=== PATIENT | female | born 1945 | race Caucasian/White ===

== ENCOUNTER → 2016-08-05 | Day surgery (SDC) | payer OTHER, MEDICARE ==
[2016-08-04 15:51] VITALS: BP 103/64
[~2016-08-05] VITALS: Ht 167.6 cm; Wt 106.1 kg
[2016-08-05] VITALS (13 sets, daily range): BP systolic 110–133; BP diastolic 61–85
[~2016-08-05] MED LIST: CHOL20003 PO; CYAN500T PO; DIPRIVAN IV ONE; HYDR-3101 PO; HYDR12.53 PO; KENALOG-40 ONE; LACTATED RINGERS 1,000 ML IV SCH; LISI-414 PO; NORCO 7.5MG PO ONE; NORCO 7.5MG PO STA; SENSORCAINE-EPI 0.25%-0.0005 ONE; SODIUM CHLORIDE IR ONE; SUBLIMAZE ONE; THYR65TA PO; TIZA2TAB PO; TORADOL ONE; VERSED ONE; XYLOCAINE ONE; ZOFRAN IV STA; ZOFRAN ONE
--- NOTE | 2016-08-05 18:50 | OPH ---
DATE OF SURGERY: 08/05/2016 PREOPERATIVE DIAGNOSES: 1. Medial and lateral meniscal tear about the right knee. 2. OA of the lateral compartment. POSTOPERATIVE DIAGNOSES: 1. Lateral meniscal tear, right knee. 2. Synovitis, right knee. 3. OA right knee. 4. Skin lesion of the left thigh. OPERATIVE PROCEDURES: 1. Arthroscopy of the right knee with partial lateral meniscectomy. 2. Major synovectomy. 3. Excision of skin lesion, left thigh. SURGEON: Porfirio Samuel MD ANESTHESIA: LMA. TOURNIQUET TIME: In the right thigh is 31 minutes at 300 mmHg. DRAINS: None. BLOOD LOSS: 20 mL. DESCRIPTION OF INDICATIONS: This patient is a 70-year-old female. She has had right knee pain mainly laterally for several months. She complains of pain with weightbearing. She does not remember specific injury. She got temporary relief with cortisone injection. She has tried physical therapy as well as [place] for the pain with no relief. The patient has pain with just walking short distances. She wanted to be more active. She lacks 10 degrees of full extension and has 110 degrees of flexion. There is some medial and lateral tenderness about the joint lines. The Reji is negative. Her x-rays were negative for any narrowing or arthritic changes. The MRI scan shows medial as well as lateral meniscal tears and some OA of the lateral compartment. Because of failure of conservative treatment and the patient's degree of pain, she was taken to the operating room today for the above procedures. DESCRIPTION OF PROCEDURE: The patient was placed on the operating table in the supine position. A general LMA anesthetic was induced without difficulty. The patient had the right thigh padded and a tourniquet was applied. The right lower extremity was then sterilely prepped and draped. The patient had the arthroscopy portals made superolateral, anterolateral and anteromedial. The arthroscope was introduced into the suprapatellar pouch. She had significant synovitis. Later in the case, the patient had a major synovectomy performed of the suprapatellar pouch as well as the medial and lateral compartments. The patient had grade 3-4 chondromalacia about the patellofemoral joint with exposed subchondral bone about the patella as well as the femoral sulcus diffusely. The patient's medial and lateral gutters showed that she had small osteophytes about the distal femur both medially and laterally. The patient's medial compartment was entered. She had some grade 3-4 chondromalacia about the distal end of her medial femoral condyle. Any loose articular cartilage was shaved with a shaver. The medial meniscus was probed throughout its entirety and visualized and found to be normal. The intercondylar notch was viewed and the anterior and posterior cruciate ligaments were normal. The leg was placed in a [id number] position. She had a complex tear of the middle and anterior horns of her lateral meniscus. Using the shaver as well as an upbiter and [place], a partial lateral meniscectomy was performed. There was fairly good maintenance of the articular cartilage about the lateral femoral condyle; however, she had some exposed subchondral bone about the posterior aspect of the lateral tibial plateau. The patient then had the arthroscopic equipment removed from the knee. The portal tracts were closed with 3-0 Ethilon. A compressive dressing was applied. The skin lesion about the anterior aspect of left thigh was sterilely prepped and draped. The skin and subcutaneous tissue was injected with 0.25% ropivacaine with epinephrine. The patient then had the lesion which was about 5 x 5 mm excised off of the anterior medial portion of her left thigh. The wounds were irrigated and closed with 3-0 Ethilon. The patient was extubated in the operating room, sent to recovery in stable condition. Porfirio Samuel MD DR: LYDIA/capo JOB# [id number]
== END | disposition home or self-care (01) ==
LOC: SDC 02:02
PROVIDERS: ATTEND Orthopaedic Surgery
DX: S83.281A Other tear of lateral meniscus, current injury, right knee, initial encounter (principal); X58.XXXA Exposure to other specified factors, initial encounter; Y93.89 Activity, other specified; Y99.8 Other external cause status; Y92.89 Other specified places as the place of occurrence of the external cause; M65.861 Other synovitis and tenosynovitis, right lower leg; L98.8 Other specified disorders of the skin and subcutaneous tissue; M17.11 Unilateral primary osteoarthritis, right knee; M22.41 Chondromalacia patellae, right knee
CPT/HCPCS: 11400; 29876; 29881; 93005; J1885; J2250; J2405; J3010; J3301; J3490; J7030 ×2

== ENCOUNTER → 2016-09-01 | Outpatient (CLI) | payer OTHER, MEDICARE ==
[~2016-09-01] MED LIST changes: -DIPRIVAN IV ONE; -KENALOG-40 ONE; -LACTATED RINGERS 1,000 ML IV SCH; -NORCO 7.5MG PO ONE; -NORCO 7.5MG PO STA; -SENSORCAINE-EPI 0.25%-0.0005 ONE; -SODIUM CHLORIDE IR ONE; -SUBLIMAZE ONE; -TORADOL ONE; -VERSED ONE; -XYLOCAINE ONE; -ZOFRAN IV STA; -ZOFRAN ONE
[2016-09-02 10:19] LABS: HEMATOCRIT 37.5 % (36.0-46.0); HEMOGLOBIN 12.5 g/dL (12.0-15.0); MEAN CELL HGB 30.6 pg (26-34); MEAN CELL HGB CONCENTRATION 33.3 g/dL (33-37); MEAN CORP VOLUME 91.7 fL (78-100); MEAN PLATELET VOLUME 9.5 fL (7.8-11.0); RED CELL DISTRIBUTION WIDTH 14.1 % (11.5-14.5); WHITE BLOOD CELL 6.8 10^3/uL (4.5-11.0)
== END | disposition home or self-care (01) ==
LOC: LAB 16:50 → SUATTDRO 18:26
PROVIDERS: ATTEND Pediatrics
DX: M25.561 Pain in right knee (principal)
CPT/HCPCS: 36415; 85027; 85651; 86140; 87070

== ENCOUNTER → 2016-09-02 | Outpatient (CLI) | payer OTHER, MEDICARE ==
--- NOTE | 2016-09-02 10:17 | DIREP ---
PROCEDURE:US DUPLEX EXTREM VEINS UNILATER/LIMITED-RT COMPARISON:None. INDICATIONS:RT LEG PAIN DVT TECHNIQUE:The right lower extremity was evaluated utilizing pruett scale images with segmental compression, color Doppler, and spectral Doppler with respiratory variation and augmentation. FINDINGS: Common femoral vein:Patent Superficial femoral vein:Patent Popliteal vein:Patent Anterior tibial vein:Patent Posterior tibial vein:Patent Greater saphenous vein:Patent. Reflux is noted in the greater saphenous vein. Waveforms are within normal limits. There is a complex localized fluid collection or cystic lesion in the popliteal fossa measuring 6.5 cm x1.4 cm x3.0 cm most consistent with a popliteal cyst. CONCLUSION: 1. There are no findings of deep venous thrombosis in the right lower extremity. 2. There are findings consistent with a Staton's cyst in the right popliteal space measuring 6.5 cm in diameter. Dictated by: Julio Cesar Welsh M.D. On 09/02/2016 at 10:14 AM
== END | disposition home or self-care (01) ==
LOC: RAD 09:24
PROVIDERS: ATTEND Orthopaedic Surgery
DX: M79.604 Pain in right leg (principal); R60.0 Localized edema
CPT/HCPCS: 93971

== ENCOUNTER → 2016-10-03 | Outpatient (CLI) | payer OTHER, MEDICARE | END | disposition home or self-care (01) | LOC: CT 08:42 | PROVIDERS: ATTEND Orthopaedic Surgery | DX: M17.11 Unilateral primary osteoarthritis, right knee (principal) | CPT/HCPCS: 73700 ==

== ENCOUNTER 2016-10-28 10:00 | Inpatient (IN) | payer OTHER, MEDICARE ==
[~2016-10-28] VITALS: Ht 167.6 cm; Wt 113.0 kg
[2016-10-28 10:37] VITALS: BP 144/68
[2016-10-28 11:09] LABS: BASOPHIL # 0.1 10^3/uL (0.0-0.1); BASOPHIL % 0.6 % (0.0-0.2); EOSINOPHIL # 0.2 10^3/uL (0.0-0.2); EOSINOPHIL % 1.9 % (0.0-5.0); HEMATOCRIT 37.7 % (36.0-46.0); HEMOGLOBIN 12.8 g/dL (12.0-15.0); LYMPHOCYTES # 2.8 10^3/uL (1.0-4.8); LYMPHOCYTES % 35.6 % (24.0-44.0); MEAN CELL HGB 30.7 pg (26-34); MEAN CORP VOLUME 90.4 fL (78-100); MEAN PLATELET VOLUME 9.2 fL (7.8-11.0); MONOCYTES # 0.6 10^3/uL (0.3-0.8); MONOCYTES % 7.4 % (5.0-12.0); NEUTROPHIL # 4.2 10^3/uL (1.8-7.7); NEUTROPHILS % 54.5 % (41.0-85.0); RED CELL DISTRIBUTION WIDTH 13.2 % (11.5-14.5); WHITE BLOOD CELL 7.8 10^3/uL (4.5-11.0)
[2016-10-28 11:44] LABS: CALCIUM 9.7 mg/dL (8.4-10.5); CARBON DIOXIDE 28.6 mmol/L (20.0-32)
--- NOTE | 2016-10-28 12:10 | DIREP ---
PROCEDURE:CHEST 2 VIEWS COMPARISON:None. INDICATIONS:PRE-OP OA RIGHT KNEE FINDINGS: LUNGS/PLEURA:No acute pulmonary parenchymal abnormalities. Minimal scarring in the left lung base. No effusions. VASCULATURE:Normal. Unremarkable pulmonary vasculature. CARDIAC:Normal. No cardiac silhouette abnormality or cardiomegaly. MEDIASTINUM:Normal. No visible mass or adenopathy. BONES:Moderate degenerative changes in the thoracic spine. Mild pectus excavatum. OTHER:Negative. CONCLUSION:Degenerative changes in the thoracic spine and mild pectus excavatum with no acute cardiopulmonary disease.. Dictated by: Fernando Gooden M.D. on 10/28/2016 at 12:08 PM
[2016-10-28] MEDS ORDERED: NAPR500T3 PO (13:35)
[2016-10-28] MEDS ORDERED: GABA300C10 PO (13:35)
[2016-10-28] MEDS ORDERED: CYAN10005 PO (13:35)
[2016-10-31] VITALS (14 sets, daily range): BP systolic 109–163; BP diastolic 61–92
[2016-10-31] MEDS ORDERED: VANCOMYCIN HCL 2 GM ONE (05:04)
[2016-10-31] MEDS ORDERED: NS 500ML 500 ML IV ONE (05:05)
[2016-10-31] MEDS ORDERED: BACTROBAN NASAL NS ONE (06:00)
[2016-10-31] MEDS ORDERED: LACTATED RINGERS 1,000 ML IV SCH ×3 (06:00→11:00)
[2016-10-31] MEDS ORDERED: NS IV ONE ×2 (06:00→07:58)
[2016-10-31] MEDS ORDERED: ANCEF 3 GM in NS 100ML 100 ML IV ONE (06:00)
[2016-10-31] MEDS ORDERED: VANCOMYCIN IV ONE ×2 (06:00→07:58)
[2016-10-31] MEDS ORDERED: CELEBREX PO ONE (06:30)
[2016-10-31] MEDS ORDERED: LYRICA PO ONE (06:30)
[2016-10-31] MEDS ORDERED: TYLENOL PO ONE (06:30)
[2016-10-31] MEDS ORDERED: ZEMURON IV ONE (07:06)
[2016-10-31] MEDS ORDERED: DECADRON ONE (07:06)
[2016-10-31] MEDS ORDERED: XYLOCAINE ONE ×2 (07:06→07:26)
[2016-10-31] MEDS ORDERED: ZOFRAN ONE (07:06)
[2016-10-31] MEDS ORDERED: QUELICIN ONE (07:07)
[2016-10-31] MEDS ORDERED: NEOSTIGMINE ONE (07:07)
[2016-10-31] MEDS ORDERED: DILAUDID ONE (07:07)
[2016-10-31] MEDS ORDERED: VERSED ONE (07:08)
[2016-10-31] MEDS ORDERED: SUBLIMAZE ONE (07:08)
[2016-10-31] MEDS ORDERED: DIPRIVAN IV ONE (07:08)
[2016-10-31] MEDS ORDERED: NAROPIN 5% 5 MG/ML VIAL ONE (07:09)
[2016-10-31] MEDS ORDERED: SODIUM CHLORIDE IR ONE ×2 (07:50)
[2016-10-31] MEDS ORDERED: NS 100ML 200 ML IV ONE (07:50)
[2016-10-31] MEDS ORDERED: NS 250ML 250 ML IV ONE (07:50)
[2016-10-31] MEDS ORDERED: TRANEXAMIC ACID IV ONE (08:07)
--- NOTE | 2016-10-31 08:19 | PCM.HP ---
History of Present Illness Reason for Visit: Right knee pain History of Present Illness 70 yo female with OA about the right knee, she had arthroscopy 4 months ago that did not resolve her pain. She has failed conservative measures in the past. She had an MRI on 08/30 in [facility] that revealed moderate effusion, popliteal cyst adn diffuse OA that is worse laterally. Past Medical History Cardiac: HTN Pulmonary: Other (sleep apnea) PLUSH BRUSHER: Migraine Hx Last Menstrual Period: HX HYSTERECTOMY Past Surgical History: Arthroscopy, Cholecystectomy, Tubal Ligation, Other ( back surgery, Right knee scope, hyst) Past Social History Smoke: No Alcohol: none Travel Hx EBOLA RISK:Travel to/contact w: No Is pt experiencing any Ebola s: No Review of Systems Allergies: Coded Allergies: No Known Allergies (Unverified , 08/04/16) Scheduled Cholecalciferol (Vitamin D3) (Vitamin D-3), 5,000 UNIT PO DAILY, (Reported) Cyanocobalamin (Vitamin B-12) (Vitamin B-12), 1 TAB PO DAILY, (Reported) Gabapentin (Gabapentin), 1 CAP PO BID, (Reported) Hydrochlorothiazide (Hydrochlorothiazide), 1 CAP PO DAILY, (Reported) Lisinopril (Lisinopril), 1 TAB PO DAILY, (Reported) Naproxen (Naproxen), 1 TAB PO BID, (Reported) Thyroid,Pork (Nature-Throid), 65 MG PO DAILY, (Reported) Scheduled PRN Hydrocodone Bit/Acetaminophen (Quentin 7.5-325), 1 TAB PO Q6 PRN for PAIN, ( Reported) Tizanidine Hcl (Tizanidine Hcl), 2 MG PO TID PRN for MUSCLE SPASM, (Reported) Discontinued Medications Cyanocobalamin (Vitamin B-12) (Vitamin B-12), 500 MCG PO DAILY, (Reported) Discontinued Reason: No Longer Taking VTE VTE Risk Total Score: >5 VTE Risk Score VTE Risk: Score 0-1 = Low Risk (Aggressive mobilization; early ambulation; no VTE prophylaxis required) Score 2: Moderate Risk (Intermittent/Pneumatic Compression Device OR Lovenox/Heparin/Coumadin) Score 3-4: High Risk (Intermittent/Pneumatic Compression Device AND Lovenox/Heparin/Coumadin) Score > or =5: Highest Risk (Intermittent/Pneumatic Compression Device AND Lovenox/Heparin/Coumadin) VTE VTE Present on Admission: No Currently receiving anticoagul: No VTE Risk Total Score: >5 Exam Vital Signs Vital Signs Date Time Temp Pulse Resp B/P (MAP) Pulse Ox O2 Delivery O2 Flow Rate FiO2 10/31/16 07:40 63 18 132/77 (95) 99 Nasal Canula 10/31/16 06:04 98.7 General Appearance: Alert, Oriented X3, Cooperative HEENT: Atraumatic, PERRLA Respiratory: Clear to auscultation Cardiovascular: Regular rate Abdominal: Normal bowel sounds Extremities: Other (mild swelling, lacking 10 degrees full extension, 90 degrees flexion, good stability, mild crepitus) Skin: No rash Neuro: Sensation intact Psych/Mental Status: Mental status NL Assessment/Plan Assessment/Plan Assessment/Plan OA right knee Problems: (1) Sleep apnea ICD Code: G47.30 - Sleep apnea, unspecified SNOMED: 78929272 (2) Migraine ICD Code: G43.909 - Migraine, unspecified, not intractable, without status migrainosus SNOMED: 46615835 (3) Osteoarthritis of right knee ICD Code: M17.11 - Unilateral primary osteoarthritis, right knee SNOMED: 386478702838429 (4) HTN (hypertension) ICD Code: I10 - Essential (primary) hypertension SNOMED: 02226621 Patient History: Asthma 32 MOTHER, , Age:78 Cerebrovascular disorder Chronic obstructive pulmonary disease 32 MOTHER, , Age:78 Congestive heart failure 33 FATHER, , Age:75 Diabetes mellitus 32 MOTHER, , Age:78 FH: heart attack 33 FATHER, , Age:75 FH: heart disease 33 FATHER, , Age:75 Hypertension 33 FATHER, , Age:75 No known health problems 19 CHILD 19 CHILD 19 CHILD 19 CHILD Plan Right TKA JAX DAVIS NP Oct 31, 2016 08:18
[2016-10-31] MEDS ORDERED: TORADOL IV SCH (08:30)
[2016-10-31] MEDS ORDERED: CEPACOL SORE THROAT LOZENGE MM PRN (08:30)
[2016-10-31] MEDS ORDERED: AMBIEN PO PRN (08:30)
[2016-10-31] MEDS ORDERED: NORCO 5 MG PO PRN ×2 (08:30)
[2016-10-31] MEDS: PEPCID PO SCH (09:00)
[2016-10-31] MEDS ORDERED: VANCOMYCIN HCL IV SCH (09:00)
[2016-10-31] MEDS: COLACE PO SCH (09:00)
[2016-10-31] MEDS: BACTROBAN NASAL NS SCH ×2 (09:00→21:24)
[2016-10-31] MEDS: LACTATED RINGERS 1,000 ML IV SCH ×2 (10:39→21:32)
[2016-10-31] MEDS ORDERED: TRANDATE IV PRN (11:00)
[2016-10-31] MEDS ORDERED: DILAUDID IV PRN ×2 (11:00→11:30)
[2016-10-31] MEDS ORDERED: SUBLIMAZE IV PRN (11:00)
[2016-10-31] MEDS ORDERED: NORCO 7.5MG PO PRN (11:00)
--- NOTE | 2016-10-31 11:15 | NUR ---
Pt on unit Pt arrived on unit via bed from PACU. Received report and assumed care of pt. Provided pt with fluids. Special vitals started. Call light within reach.
--- NOTE | 2016-10-31 11:34 | DIREP ---
PROCEDURE:XRAY KNEE 1-2 VWS-RT COMPARISON:None. INDICATIONS:POST TOTAL KNEE REPLACEMNT FINDINGS: BONES:Normal. JOINTS:Total knee replacement noted. SOFT TISSUES:Skin thania and subcutaneous emphysema. OTHER:No additional findings. CONCLUSION:Recent right total knee replacement, reveals anatomic alignment and position. Dictated by: Noel Castellanos M.D. on 10/31/2016 at 10:30 AM Read in [place]
[2016-10-31] MEDS ORDERED: LACTATED RINGERS 1,000 ML ONE ×2 (11:43→21:31)
--- NOTE | 2016-10-31 13:41 | NUR ---
Status Pt resting in bed. Pt denies pain or needs. Educated pt on importance of reporting pain. Pt able to verbalize understanding. Call light within reach.
[2016-10-31] MEDS: NORCO 5 MG PO PRN ×2 (14:06→21:09)
[2016-10-31] MEDS: ZOFRAN IV PRN (16:11)
--- NOTE | 2016-10-31 16:17 | PRM.PN ---
Subjective Subjective Subjective Awake and alert C/o headache from laying down too long ( has hx of migraines) VSS NVM+ Getting up with PT now Stable Patient History: Asthma 32 MOTHER, , Age:78 Cerebrovascular disorder Chronic obstructive pulmonary disease 32 MOTHER, , Age:78 Congestive heart failure 33 FATHER, , Age:75 Diabetes mellitus 32 MOTHER, , Age:78 FH: heart attack 33 FATHER, , Age:75 FH: heart disease 33 FATHER, , Age:75 Hypertension 33 FATHER, , Age:75 No known health problems 19 CHILD 19 CHILD 19 CHILD 19 CHILD VTE VTE Risk Total Score: >5 VTE Risk Score VTE Risk: Score 0-1 = Low Risk (Aggressive mobilization; early ambulation; no VTE prophylaxis required) Score 2: Moderate Risk (Intermittent/Pneumatic Compression Device OR Lovenox/Heparin/Coumadin) Score 3-4: High Risk (Intermittent/Pneumatic Compression Device AND Lovenox/Heparin/Coumadin) Score > or =5: Highest Risk (Intermittent/Pneumatic Compression Device AND Lovenox/Heparin/Coumadin) Review of Systems Allergies: Coded Allergies: No Known Allergies (Unverified , 08/04/16) Scheduled Cholecalciferol (Vitamin D3) (Vitamin D-3), 5,000 UNIT PO DAILY, (Reported) Cyanocobalamin (Vitamin B-12) (Vitamin B-12), 1 TAB PO DAILY, (Reported) Gabapentin (Gabapentin), 1 CAP PO BID, (Reported) Hydrochlorothiazide (Hydrochlorothiazide), 1 CAP PO DAILY, (Reported) Lisinopril (Lisinopril), 1 TAB PO DAILY, (Reported) Naproxen (Naproxen), 1 TAB PO BID, (Reported) Thyroid,Pork (Nature-Throid), 65 MG PO DAILY, (Reported) Scheduled PRN Hydrocodone Bit/Acetaminophen (Alsey 7.5-325), 1 TAB PO Q6 PRN for PAIN, ( Reported) Tizanidine Hcl (Tizanidine Hcl), 2 MG PO TID PRN for MUSCLE SPASM, (Reported) Discontinued Medications Cyanocobalamin (Vitamin B-12) (Vitamin B-12), 500 MCG PO DAILY, (Reported) Discontinued Reason: No Longer Taking Objective Vitals and I/O Vital Sign - Last 24 Hours 10/31/16 10/31/16 10/31/1610/31/17 06:04 06:04 07:30 07:35 Temp 98.7 Pulse 69 65 64 Resp 18 18 18 B/P (MAP) 138/71 (93) 136/86 (103) 143/91 (108) Pulse Ox 94 97 99 O2 Delivery Room Air Room Air Nasal Canula Nasal Canula 10/31/16 10/31/16 10/31/16 10/31/16 07:40 10:28 10:28 10:33 Temp 98.2 Pulse 63 92 88 Resp 18 16 18 B/P (MAP) 132/77 (95) 163/92 (115) 149/81 (103) Pulse Ox 99 93 95 O2 Delivery Nasal Canula Nasal Canula Nasal Canula O2 Flow Rate 4 10/31/16 10/31/16 10/31/16 10/31/16 10:38 10:43 10:48 10:53 Temp 98.0 98.1 98.4 Pulse 87 85 85 83 Resp 16 16 18 16 B/P (MAP) 142/75 (97) 141/83 (102) 138/78 (98) 139/73 (95) Pulse Ox 96 94 95 93 O2 Delivery Nasal Canula Nasal Canula Nasal Canula Nasal Canula 10/31/16 10/31/16 10/31/16 10/31/16 10:58 11:03 11:07 11:53 Temp 97.6 Pulse 81 81 70 Resp 18 18 18 B/P (MAP) 135/73 (93) 132/82 (99) 140/76 (97) Pulse Ox 94 96 97 O2 Delivery Nasal Canula Nasal Canula Nasal Canula Nasal Cannula O2 Flow Rate 2.00 10/31/16 10/31/16 12:50 12:57 Pulse 58 Resp 16 16 Pulse Ox 98 98 O2 Delivery Nasal Cannula O2 Flow Rate 2.50 Medication Reconciliation Scheduled Cholecalciferol (Vitamin D3) (Vitamin D-3), 5,000 UNIT PO DAILY, (Reported) Cyanocobalamin (Vitamin B-12) (Vitamin B-12), 1 TAB PO DAILY, (Reported) Gabapentin (Gabapentin), 1 CAP PO BID, (Reported) Hydrochlorothiazide (Hydrochlorothiazide), 1 CAP PO DAILY, (Reported) Lisinopril (Lisinopril), 1 TAB PO DAILY, (Reported) Naproxen (Naproxen), 1 TAB PO BID, (Reported) Thyroid,Pork (Nature-Throid), 65 MG PO DAILY, (Reported) Scheduled PRN Hydrocodone Bit/Acetaminophen (Alsey 7.5-325), 1 TAB PO Q6 PRN for PAIN, ( Reported) Tizanidine Hcl (Tizanidine Hcl), 2 MG PO TID PRN for MUSCLE SPASM, (Reported) Discontinued Medications Cyanocobalamin (Vitamin B-12) (Vitamin B-12), 500 MCG PO DAILY, (Reported) Discontinued Reason: No Longer Taking Assessment/Plan Assessment/Plan Patient History: Asthma 32 MOTHER, , Age:78 Cerebrovascular disorder Chronic obstructive pulmonary disease 32 MOTHER, , Age:78 Congestive heart failure 33 FATHER, , Age:75 Diabetes mellitus 32 MOTHER, , Age:78 FH: heart attack 33 FATHER, , Age:75 FH: heart disease 33 FATHER, , Age:75 Hypertension 33 FATHER, , Age:75 No known health problems 19 CHILD 19 CHILD 19 CHILD 19 CHILD WIN MCKEON MD Oct 31, 2016 16:17
[2016-10-31] MEDS: VANCOMYCIN HCL 2 GM in NS 500ML 500 ML IV SCH (16:45)
[2016-10-31 18:31] LABS: HEMATOCRIT 35.3 % (36.0-46.0); HEMOGLOBIN 11.9 g/dL (12.0-15.0); MEAN CELL HGB 30.7 pg (26-34); MEAN CELL HGB CONCENTRATION 33.7 g/dL (33-37); MEAN CORP VOLUME 91.2 fL (78-100); MEAN PLATELET VOLUME 9.2 fL (7.8-11.0); RED CELL DISTRIBUTION WIDTH 13.1 % (11.5-14.5); WHITE BLOOD CELL 14.2 10^3/uL (4.5-11.0)
[2016-10-31] MEDS ORDERED: NAPROXEN PO SCH (21:00)
[2016-10-31] MEDS: LYRICA PO SCH (21:08)
[2016-10-31] MEDS: NEURONTIN PO SCH (21:08)
[2016-10-31] MEDS: CELEBREX PO SCH (21:08)
[2016-11-01 00:58] VITALS: BP 93/56
--- NOTE | 2016-11-01 04:32 | PRM.ACF1 ---
Admission Criteria Forms AMBULATORY SURGERY EXCEPTION CRITERIA Ambulatory Surgery Exception Criteria ( Place 'X' for any and all applicable criteria): Surgery or procedure performed on ambulatory basis may require inpatient stay for[A] ANY ONE of the following(1)(2)(3)(4)(5)(6)(7)(8)(9): [X] I. A preoperative situation, condition, or finding that warrants inpatient stay as indicated by ANY ONE of the following: [] a) Inpatient care needed because of severity of a disease or condition rather than the surgery (eg, severe cardiac or respiratory disease, severe infection) (15) (16 ) (17) (18) [] b) Emergent procedure (eg, angioplasty for acute ischemia)(19) [] c) Complex surgical approach or situation as indicated by ANY ONE of the following(3): [] i) Open approach needed instead of usual endoscopic, transcatheter, or other less invasive procedure [] ii) Difficult approach because of previous operation [] iii) Airway monitoring required after open neck procedures(20)(21 ) [] iv) Large mass requiring unusually extensive dissection [] v) Additional complicating feature requiring inpatient care (eg , drain management)(22(23): [X] d) Major surgery in a pt with high anesthetic risk as indicated by ANY ONE of the following (2)(3)(5)(7)(8): [X] i) ASA risk class III or higher (severe systemic disease impairing function) [D] [] ii) Advanced age (eg, older than 85 years)(14)(24) [] iii) Symptomatic heart failure(25) [] iv) Symptomatic asthma or COPD(8)(21) [] v) Morbid obesity with hemodynamic or respiratory problems(20)( 21)(26)(27) [] vi) Obstructive sleep apnea(20)(21) [] vii) Former premature infants who are younger than 60 weeks [] viii) High risk for severe postoperative abnormalities (eg, severe postoperative hypocalcemia after parathyroidectomy for severe hyperparathyroidism)(27)( 28) [] ix) Unstable angina(25) [] e) Drug-related risk requiring inpatient stay as indicated by ANY ONE of the following(5)(10)(14)(32)(33) [] i) Procedure requires discontinuing drugs or other therapy (eg , antiarrhythmic medication, antiseizure medication), which necessitates inpatient observation or treatment.(18)(31) [] ii) Major surgery and high risk drug use as indicated by ANY ONE of the following: [] 1) Active abuse of cocaine or similar drug [] 2) Monoamine oxidase inhibitor use [] 3) Other drug identified as posing risk [] f) Inadequate outpatient care situation as indicated by ANY ONE of the following(5)(10)(14)(32)(33) [] i) Patient lives remote from medical facility and procedure has urgent complication potential, and temporary nearby residence cannot be arranged [] ii) Patient will have postprocedure incapacitation and inadequate assistance at home, or alternative level of care cannot be arranged. [] iii) Patient will have long general anesthesia or procedure side effect resolution time, and competent person to stay with patient on first postoperative night at home or alternative level of care cannot be arranged. [] iv) Other inadequate outpatient situation that cannot be handled by other means [] II. A perioperative event, condition, or finding that warrants inpatient stay as indicated by ANY ONE of the following (1)(2)(3): [] a) Inadequate physiologic recovery: cardiovascular, respiratory, or hemodynamic status not normal or near preoperative baseline(18) [] b) Hemodynamic instability [] c) Patient not alert with near normal or baseline mental status [] d) Temperature not normal or as expected and not appropriate for outpatient treatment of condition [] e) Ambulatory or appropriate activity level status not yet achieved post procedure [E](34)(35)(36) [] f) Operative site not appropriate (eg, unexpected or excessive drainage or bleeding) [] g) Postoperative effects not resolved or adequately managed (eg, significant pain or vomiting not appropriate for outpatient or next level of care)(10)(12) [] h) Complicating features requiring inpatient care as indicated by ANY ONE of the following(37): [] i) Severe complications of procedure (eg, bowel injury, airway compromise, vascular injury,severe hemorrhage) [] ii) Extensive (eg, dissection far beyond usual scope of procedure ) or prolonged (eg, 120 minutes beyond usual) surgery needed requiring inpatient postoperative care [] iii) Conversion to an open or complex procedure that requires inpatient care (eg, open vs laparoscopic cholecystectomy, abdominal vs vaginal hysterectomy)(38) [] iv) Comorbid condition or test result identified during or post procedure that requires inpatient care (7) [] v) Malignant hyperthermia(30) [] vi) Other complicating feature requiring inpatient care(22)(23) Inpatient stay may be needed until ALL of the following are present (1)(2)(3)(4) (5)(6)(10)(14)(33)(40): []a) Physiologic recovery: cardiovascular, respiratory, and hemodynamic status normal or near preoperative baseline []b) Hemodynamic stability []c) Patient alert, with near normal or baseline mental status []d) Temperature appropriate: patient afebrile or temperature appropriate for outpt treatment of condition []e) Activity level appropriate: ambulatory or appropriate activity level post procedure []f) Operative site appropriate as indicated by ALL of the following: []i) Site dry or with expected drainage []ii) Any blood noted is as expected for procedure. []g) Postoperative effects resolved or managed as indicated by ALL of the following: []i) Pain management appropriate for outpatient (or next level of) care(10) []ii) Minimal nausea and vomiting: if present, successfully treated with oral medication(12) []iii) Headache, dizziness, or drowsiness (if present) are mild. []h) Voiding status acceptable as indicated by ANY ONE of the following: []i) Voiding spontaneously []ii) No voiding but instructions given for follow-up in 6 to 8 hours []iii) Urinary catheter in place, and instructions given for follow-up []i) Complicating features requiring inpatient care manageable at a lower level of care(37) []j) Comorbid conditions manageable at a lower level of care(37) The original AMT content created by AMT has been revised. The portions of the content which have been revised are identified through the use of italic text or in bold, and AMT has neither reviewed nor approved the modified material. All other unmodified content is copyright AMT. Please see references footnoted in the original AMT edition 2016 Is [facility]/Juan's added/comple: YES DALLAS [facility]AG[facility] Nov 01, 2016 04:32
[2016-11-01 05:22] VITALS: BP 104/68
[2016-11-01] MEDS: VANCOMYCIN HCL 2 GM in NS 500ML 500 ML IV SCH ×2 (05:44→18:00)
[2016-11-01 05:53] LABS: HEMATOCRIT 32.3 % (36.0-46.0); HEMOGLOBIN 10.7 g/dL (12.0-15.0); MEAN CELL HGB 30.6 pg (26-34); MEAN CELL HGB CONCENTRATION 33.1 g/dL (33-37); MEAN CORP VOLUME 92.3 fL (78-100); MEAN PLATELET VOLUME 9.5 fL (7.8-11.0); RED CELL DISTRIBUTION WIDTH 13.3 % (11.5-14.5); WHITE BLOOD CELL 11.6 10^3/uL (4.5-11.0)
[2016-11-01] MEDS: NORCO 5 MG PO PRN ×3 (05:59→21:36)
--- NOTE | 2016-11-01 06:50 | NUR ---
REPORT RECEIVED REPORT CHECKED EMR ASSUMED CARE OF PT
--- NOTE | 2016-11-01 07:45 | NUR ---
PAIN PATIENT REMAINS ASLEEP WITH HOME CPAP MACHINE RUNNING. WHEN ASKED ABOUT PAIN, DENIES ALL PAIN OR DISCOMFORT AT THIS TIME.
--- NOTE | 2016-11-01 08:29 | NUR ---
DISCHARGE PLANNING: SS VISITED WITH PT REGARDING DISCHARGE PLANNING. PT LIVES IN [place], [place] WITH SPOUSE AND WAS INDEPENDENT PRIOR TO ADMISSION. PT HAS A WALKER IN PLACE SHE USES NEED TO ASSIST WITH AMBULATION. PT ALSO HAS A CPAP MACHINE SHE USES NIGHTLY IN PLACE AT HOME. PT WOULD LIKE [facility] TO COME IN HER HOME FOR CARE HOME AND PHYSICAL THERAPY UPON DISCHARGE. CHOICE LETTER, PRESENTED, SIGNED AND PLACED INTO PT'S CHART. SS ATTEMPTED TO CONTACT [facility] BUT THE ADMISSION NURSE WAS UNAVAILABLE AT THIS TIME AND STATED SHE WOULD CALL THIS WORKER BACK. NO FURTHER NEEDS WERE NOTED OR IDENTIFIED AT THIS TIME. PT SAFETY HANDOUT ADDRESSED, NO QUESTIONS ASKED, UNDERSTANDING VERBALIZED. CONTACT INFORMATION PROVIDED. SS TO CONTINUE TO FOLLOW AND MONITOR DISCHARGE PLANNING NEEDS AND WILL FOLLOW UP WITH [facility] REGARDING HOME HEALTH CARE NEEDS.
--- NOTE | 2016-11-01 08:43 | PRM.PN ---
Subjective Subjective Subjective Awake and alert ONEIL resolved VSS HGB 10 post op anemia expected VSS NVM+ Start PT Patient History: Asthma 32 MOTHER, , Age:78 Cerebrovascular disorder Chronic obstructive pulmonary disease 32 MOTHER, , Age:78 Congestive heart failure 33 FATHER, , Age:75 Diabetes mellitus 32 MOTHER, , Age:78 FH: heart attack 33 FATHER, , Age:75 FH: heart disease 33 FATHER, , Age:75 Hypertension 33 FATHER, , Age:75 No known health problems 19 CHILD 19 CHILD 19 CHILD 19 CHILD VTE VTE Risk Total Score: >5 VTE Risk Score VTE Risk: Score 0-1 = Low Risk (Aggressive mobilization; early ambulation; no VTE prophylaxis required) Score 2: Moderate Risk (Intermittent/Pneumatic Compression Device OR Lovenox/Heparin/Coumadin) Score 3-4: High Risk (Intermittent/Pneumatic Compression Device AND Lovenox/Heparin/Coumadin) Score > or =5: Highest Risk (Intermittent/Pneumatic Compression Device AND Lovenox/Heparin/Coumadin) Review of Systems Allergies: Coded Allergies: No Known Allergies (Unverified , 08/04/16) Scheduled Cholecalciferol (Vitamin D3) (Vitamin D-3), 5,000 UNIT PO DAILY, (Reported) Cyanocobalamin (Vitamin B-12) (Vitamin B-12), 1 TAB PO DAILY, (Reported) Gabapentin (Gabapentin), 1 CAP PO BID, (Reported) Hydrochlorothiazide (Hydrochlorothiazide), 1 CAP PO DAILY, (Reported) Lisinopril (Lisinopril), 1 TAB PO DAILY, (Reported) Naproxen (Naproxen), 1 TAB PO BID, (Reported) Thyroid,Pork (Nature-Throid), 65 MG PO DAILY, (Reported) Scheduled PRN Hydrocodone Bit/Acetaminophen ([place] 7.5-325), 1 TAB PO Q6 PRN for PAIN, ( Reported) Tizanidine Hcl (Tizanidine Hcl), 2 MG PO TID PRN for MUSCLE SPASM, (Reported) Discontinued Medications Cyanocobalamin (Vitamin B-12) (Vitamin B-12), 500 MCG PO DAILY, (Reported) Discontinued Reason: No Longer Taking Objective Vitals and I/O Vital Sign - Last 24 Hours 10/31/16 10/31/16 10/31/16 10/31/16 10:28 10:28 10:33 10:38 Temp 98.2 98.0 Pulse 92 88 87 Resp 16 18 16 B/P (MAP) 163/92 (115) 149/81 (103) 142/75 (97) Pulse Ox 93 95 96 O2 Delivery Nasal Canula Nasal Canula Nasal Canula O2 Flow Rate 4 10/31/16 10/31/16 10/31/16 10/31/16 10:43 10:48 10:53 10:58 Temp 98.1 98.4 Pulse 85 85 83 81 Resp 16 18 16 18 B/P (MAP) 141/83 (102) 138/78 (98) 139/73 (95) 135/73 (93) Pulse Ox 94 95 93 94 O2 Delivery Nasal Canula Nasal Canula Nasal Canula Nasal Canula 10/31/16 10/31/16 10/31/16 10/31/16 11:03 11:07 11:53 12:50 Temp 97.6 Pulse 81 70 58 Resp 18 16 B/P (MAP) 132/82 (99) 140/76 (97) Pulse Ox 96 97 98 O2 Delivery Nasal Canula Nasal Canula Nasal Cannula Nasal Cannula O2 Flow Rate 2.00 2.50 10/31/16 10/31/16 10/31/16 10/31/16 12:57 19:50 19:58 23:47 Temp 97.8 Pulse 61 61 Resp 16 16 18 B/P (MAP) 109/61 (77) Pulse Ox 98 97 97 O2 Delivery Room Air Nasal Cannula O2 Flow Rate 2.50 FiO2 30 11/01/16 11/01/16 11/01/16 00:58 05:22 08:23 Temp 97.9 97.9 Pulse 70 61 Resp 18 18 B/P (MAP) 93/56 (68) 104/68 (80) Pulse Ox 96 97 O2 Delivery Room Air Intake and Output 10/31/16 10/31/16 11/01/16 15:00 23:00 07:00 Intake Total 8250 ml Output Total 300 ml Balance 7950 ml Medication Reconciliation Scheduled Cholecalciferol (Vitamin D3) (Vitamin D-3), 5,000 UNIT PO DAILY, (Reported) Cyanocobalamin (Vitamin B-12) (Vitamin B-12), 1 TAB PO DAILY, (Reported) Gabapentin (Gabapentin), 1 CAP PO BID, (Reported) Hydrochlorothiazide (Hydrochlorothiazide), 1 CAP PO DAILY, (Reported) Lisinopril (Lisinopril), 1 TAB PO DAILY, (Reported) Naproxen (Naproxen), 1 TAB PO BID, (Reported) Thyroid,Pork (Nature-Throid), 65 MG PO DAILY, (Reported) Scheduled PRN Hydrocodone Bit/Acetaminophen ([place] 7.5-325), 1 TAB PO Q6 PRN for PAIN, ( Reported) Tizanidine Hcl (Tizanidine Hcl), 2 MG PO TID PRN for MUSCLE SPASM, (Reported) Discontinued Medications Cyanocobalamin (Vitamin B-12) (Vitamin B-12), 500 MCG PO DAILY, (Reported) Discontinued Reason: No Longer Taking Assessment/Plan Assessment/Plan Patient History: Asthma 32 MOTHER, , Age:78 Cerebrovascular disorder Chronic obstructive pulmonary disease 32 MOTHER, , Age:78 Congestive heart failure 33 FATHER, , Age:75 Diabetes mellitus 32 MOTHER, , Age:78 FH: heart attack 33 FATHER, , Age:75 FH: heart disease 33 FATHER, , Age:75 Hypertension 33 FATHER, , Age:75 No known health problems 19 CHILD 19 CHILD 19 CHILD 19 CHILD WIN MCKEON MD Nov 01, 2016 08:43
[2016-11-01] MEDS: ZESTRIL PO SCH (09:00)
[2016-11-01] MEDS: ZOFRAN IV PRN (09:25)
[2016-11-01 09:41] VITALS: BP 98/51
--- NOTE | 2016-11-01 09:50 | OPH ---
PREOPERATIVE DIAGNOSIS: Osteoarthritis of the right knee. POSTOPERATIVE DIAGNOSIS: Osteoarthritis of the right knee. OPERATIVE PROCEDURE: Right total knee arthroplasty using Medacta Sphere knee, size 4 femur, a size 3 tibia, 10 mm insert and a medium size 2 patella. All components were cemented. SURGEON: Porfirio Samuel MD ANESTHESIA: General endotracheal anesthesia. TOURNIQUET TIME: 63 minutes at 300 mmHg. DRAINS: None. BLOOD LOSS: 400 mL. DESCRIPTION OF INDICATIONS: The patient is a 70-year-old female with a several- year history of pain about the right knee progressively worse over the last 4 to 6 months. The patient has been on Naprosyn as well as [place] for the pain. She has had several cortisone injections with only temporary relief. The patient had arthroscopy approximately 4 months ago and at that time was noted to have extensive OA, especially about the lateral compartment. The patient had a lot of night pain as well as pain with just household ambulation. She was limited in her ability to walk short distances as well as to do her daily activities because of pain in the knee. Because of continued pain, the patient was taken to the operating room for right total knee arthroplasty. The patient was placed in the operating table in the supine position. The general endotracheal anesthetic was induced without difficulty. The patient had the well-padded tourniquet placed around the right thigh. The right lower extremity was sterilely prepped and draped. The patient then had the leg elevated for 60 seconds and then the leg was exsanguinated with an Esmarch and the tourniquet was inflated. The knee was flexed to 90 degrees. An anterior incision was made. Full- thickness flaps were developed medially and laterally. A medial parapatellar arthrotomy was performed. The patient had the patella deviated laterally. The patient then had the medial and lateral meniscectomies performed. The anterior and posterior cruciate ligaments were released. The capsule and the MCL were released around the posterior medial corner. The patient then had the @PayKnee femoral cutting guide placed about the distal femur and held into position with multiple pins. The distal femoral cut was then made. The #2 size 4 jig was applied to the distal femur and held into position with multiple screws and 2 pins. The anterior and posterior femoral cuts as well as the chamfer cuts were then made. The patient then had the tibia subluxed anteriorly. The MyKnee tibial cutting guide was attached and held into position with multiple pins. The proximal tibial cut was then made. The size 3 tibia trial had a good coverage and was held into position with multiple pins. The central drill hole was made and then the cruciate punch was used to stabilize the tibial component. The patient then had the trial reduction done with a 4 femur, 3 tibia, 10-mm insert. The knee went out to full extension. Passively, she had 120 degrees of flexion. There was excellent stability throughout the range of motion. Patella was everted. The cutting guide was attached after the peripheral edges were cauterized. After the patellar cut, there was still 14 mm of patella remaining. The patient had the drill holes made and the medium size dome patella had the best coverage. The medial and lateral femoral drill holes were made. The femoral sulcus cut was then made. The trial components were removed from the knee. The wounds were copiously irrigated and bone ends were dried. The patient's tibia component was cemented into position. The excess cement was removed with curettes. The 10-mm polyethylene component was impacted into position and stabilized with an anterior screw. The femoral component and the patellar component were likewise cemented into position. After all the excess cement was removed and the cement had hardened, the tourniquet was released. The bleeding was controlled with the Aquamantys device. The wounds were irrigated with Betadine containing solution. The capsule was closed with a #2 PDS in an interrupted figure-of- eight manner. The joint was then injected with a gram of tranexamic acid diluted with 90 mL of saline. The patient had the subcutaneous closed with a 2-0 barbed Monocryl in a running manner. The skin was closed with thania. A medium sized Aquacel reinforced with 4 x 8 and cast padding as well as ABD pads and then Michel wrap was applied. The patient was extubated in the operating room and sent to recovery in stable condition. Porfirio Samuel M.D. LYDIA/BISI/LILIAM TD: 10/31/2016 14:23 FUAD
--- NOTE | 2016-11-01 09:51 | NUR ---
MEDICATIONS PATIENT REFUSED AM MEDICATIONS AT THIS TIME, STATES SHE WOULD LIKE TO EAT CRACKERS AND TAKE ONLY THE MAXALT FOR THE MIGRAINE, THEN SHE WILL TAKE THE OTHER MEDICATIONS WHEN HER STOMACH SETTLES. CRACKERS, FRESH WATER, MAXALT PROVIDED AT THIS TIME. CALL LIGHT LEFT WITHIN REACH.
[2016-11-01] MEDS ORDERED: MAXALT MLT SL PRN (10:00)
--- NOTE | 2016-11-01 10:30 | NUR ---
CPM PT AT BEDSIDE TO PLACE CPM, INITIATED. ASKED ABOUT MEDICATIONS ONCE AGAIN, STATES SHE STILL DOES NOT FEEL LIKE SHE CAN TAKE THEM AND NOT BECOME NAUSEATED. WOULD LIKE TO WAIT A LITTLE WHILE LONGER TO TAKE AM MEDICATIONS. DENIES PAIN AT THIS TIME.
--- NOTE | 2016-11-01 10:45 | NUR ---
POST OP PAIN BLOCK FOLLOW-UP: Pt was lying in bed. states she wasn't having much pain. She states she had 2 pain pills before breakfast and they made her nauseated. Reinforced the need to take medications with some food. Femoral site of block is CDI. VSS no anesthesis complications noted at this time.
--- NOTE | 2016-11-01 11:40 | NUR ---
STATUS PATIENT RESTING WITH EYES CLOSED CPM IN MOTION CALL LIGHT IN REACH
--- NOTE | 2016-11-01 12:01 | NUR ---
LUNCH PATIENT REQUESTING ONLY CHICKEN BROTH AND JELLO FOR LUNCH. REMAINS NAUSEATED FROM THIS MORNING.
[2016-11-01 12:38] VITALS: BP 115/57
--- NOTE | 2016-11-01 12:46 | NUR ---
LUNCH PATIENT IS RESTING WELL WITH EYES CLOSED, CPAP MACHINE ON AND IN PLACE. PATIENT REQUESTING TO STAY ASLEEP AT THIS TIME CPM REMAINS IN PLACE AND IN MOTION. CALL LIGHT IN REACH, LUNCH TRAY AT THE BEDSIDE.
--- NOTE | 2016-11-01 13:52 | NUR ---
STATUS PATIENT SITTING UP EATING LUNCH. STATES "LET ME SEE HOW THIS SETTLES, AND MAYBE I CAN TAKE MY MEDICATIONS FROM THIS MORNING. I DO NOT WANT TO TAKE THE NORCOS ANYMORE UNLESS I ABSOLUTELY HAVE TOO, I THINK THAT IS WHAT IS UPSETTING MY STOMACH SO MUCH." CALL LIGHT IN REACH, DENIES FURTHER NEEDS.
--- NOTE | 2016-11-01 13:58 | NUR ---
HH UPDATE: SS RECEIVED CALL FROM [facility] AND THEY STATED "WE ARE CURRENTLY AT CAPACITY AN UNABLE TO TAKE ANY NEW PATIENTS AT THIS TIME". SS FOLLOWED UP WITH PT REGARDING HH AND PT STATED SHE WAS UNFAMILIAR WITH ANY OF THE OTHER AGENCIES. SS LET HER KNOW TWO OF THE LOCAL AGENCIES HERE IN [facility] HAD OFFICES IN [place] AND WOULD BE ABLE TO ASSIST HER IN HER HH AND PHYSICAL THERAPY NEEDS. PT HAD NO PREFERENCE SINCE [facility] WAS NEXT ON THE REFERRAL LIST SS FAXED EVERYTHING OVER TO [facility] IN [place]. MARQUEZ SMITH NOTIFIED OF REFERRAL AND STATED SHE WOULD FOLLOW UP WITH IT AND MAKE SURE EVERYTHING IS GOOD TO GO. NO FURTHER NEEDS NOTED AT THIS TIME.
[2016-11-01] MEDS: COLACE PO SCH (14:23)
[2016-11-01] MEDS: CELEBREX PO SCH ×2 (14:23→21:36)
[2016-11-01] MEDS: BACTROBAN NASAL NS SCH ×2 (14:23→21:37)
[2016-11-01] MEDS: PEPCID PO SCH (14:24)
[2016-11-01] MEDS: HYDROCHLOROTHIAZIDE PO SCH (14:24)
[2016-11-01] MEDS: LYRICA PO SCH ×2 (14:24→21:37)
[2016-11-01] MEDS: XARELTO PO SCH (14:24)
[2016-11-01] MEDS: VITAMIN B-12 PO SCH (14:24)
[2016-11-01] MEDS: NEURONTIN PO SCH ×2 (14:24→21:37)
--- NOTE | 2016-11-01 15:23 | NUR ---
STATUS LYING IN BED, TALKING ON THE PHONE, DENIES NEEDS OR PAIN AT THIS TIME.
[2016-11-01] MEDS ORDERED: LACTATED RINGERS 1,000 ML ONE (15:28)
[2016-11-01] MEDS ORDERED: TYLENOL PO ONE (15:57)
[2016-11-01 16:55] VITALS: BP 145/75
[2016-11-01] MEDS ORDERED: TORADOL ONE (18:03)
[2016-11-01] MEDS ORDERED: VANCOMYCIN HCL 2 GM ONE (18:14)
[2016-11-01] MEDS ORDERED: NS 500ML 500 ML IV ONE (18:14)
[2016-11-01] MEDS ORDERED: TYLENOL PO PRN (18:30)
[2016-11-01] MEDS ORDERED: TORADOL IV PRN (18:30)
[2016-11-01 21:42] VITALS: BP 121/64
[2016-11-02] VITALS: BP 105/66
[2016-11-02 05:52] VITALS: BP 110/68
[2016-11-02] MEDS: VANCOMYCIN HCL 2 GM in NS 500ML 500 ML IV SCH ×2 (05:53→18:08)
[2016-11-02] MEDS: NORCO 5 MG PO PRN ×3 (05:53→21:47)
--- NOTE | 2016-11-02 07:00 | NUR ---
Report Received report from Brittni Story LVN. Assumed care of pt.
[2016-11-02 07:25] VITALS: BP 98/53
--- NOTE | 2016-11-02 08:34 | PRM.PN ---
Subjective Subjective Subjective Awake and alert Pain okay this morning. H/H 10.7 32.3 VSS afebrile She reports her ONEIL improved this morning Patient History: Asthma 32 MOTHER, , Age:78 Cerebrovascular disorder Chronic obstructive pulmonary disease 32 MOTHER, , Age:78 Congestive heart failure 33 FATHER, , Age:75 Diabetes mellitus 32 MOTHER, , Age:78 FH: heart attack 33 FATHER, , Age:75 FH: heart disease 33 FATHER, , Age:75 Hypertension 33 FATHER, , Age:75 No known health problems 19 CHILD 19 CHILD 19 CHILD 19 CHILD VTE VTE Risk Total Score: >5 VTE Risk Score VTE Risk: Score 0-1 = Low Risk (Aggressive mobilization; early ambulation; no VTE prophylaxis required) Score 2: Moderate Risk (Intermittent/Pneumatic Compression Device OR Lovenox/Heparin/Coumadin) Score 3-4: High Risk (Intermittent/Pneumatic Compression Device AND Lovenox/Heparin/Coumadin) Score > or =5: Highest Risk (Intermittent/Pneumatic Compression Device AND Lovenox/Heparin/Coumadin) Review of Systems Allergies: Coded Allergies: No Known Allergies (Unverified , 08/04/16) Scheduled Cholecalciferol (Vitamin D3) (Vitamin D-3), 5,000 UNIT PO DAILY, (Reported) Cyanocobalamin (Vitamin B-12) (Vitamin B-12), 1 TAB PO DAILY, (Reported) Gabapentin (Gabapentin), 1 CAP PO BID, (Reported) Hydrochlorothiazide (Hydrochlorothiazide), 1 CAP PO DAILY, (Reported) Lisinopril (Lisinopril), 1 TAB PO DAILY, (Reported) Naproxen (Naproxen), 1 TAB PO BID, (Reported) Thyroid,Pork (Nature-Throid), 65 MG PO DAILY, (Reported) Scheduled PRN Hydrocodone Bit/Acetaminophen ([place] 7.5-325), 1 TAB PO Q6 PRN for PAIN, ( Reported) Tizanidine Hcl (Tizanidine Hcl), 2 MG PO TID PRN for MUSCLE SPASM, (Reported) Discontinued Medications Cyanocobalamin (Vitamin B-12) (Vitamin B-12), 500 MCG PO DAILY, (Reported) Discontinued Reason: No Longer Taking Objective Vitals and I/O Vital Sign - Last 24 Hours 11/01/16 11/01/16 11/01/1618/17 08:23 09:00 09:41 12:38 Temp 97.7 98.1 Pulse 60 62 Resp 16 18 B/P (MAP) 115/67 98/51 (67) 115/57 (76) Pulse Ox 91 92 O2 Delivery Room Air 11/01/16 11/01/16 11/01/16 11/01/16 14:24 14:31 16:55 20:00 Temp 98.2 Pulse 71 67 Resp 14 18 B/P (MAP) 115/67 145/75 (98) Pulse Ox 87 91 O2 Delivery Room Air Room Air FiO2 21 11/01/16 11/01/16 11/02/16 11/02/16 21:38 21:42 00:00 05:52 Temp 98.7 98.1 97.7 Pulse 67 69 55 57 Resp 18 18 16 18 B/P (MAP) 121/64 (83) 105/66 (79) 110/68 (82) Pulse Ox 91 89 91 94 O2 Delivery Nasal Cannula O2 Flow Rate 1.00 11/02/16 07:25 Temp 97.8 Pulse 58 Resp 18 B/P (MAP) 98/53 (68) Pulse Ox 97 O2 Delivery C Pap Intake and Output 11/01/16 11/02/16 11/02/16 17:00 01:00 09:00 Intake Total 720 ml Output Total 950 ml Balance -230 ml Medication Reconciliation Scheduled Cholecalciferol (Vitamin D3) (Vitamin D-3), 5,000 UNIT PO DAILY, (Reported) Cyanocobalamin (Vitamin B-12) (Vitamin B-12), 1 TAB PO DAILY, (Reported) Gabapentin (Gabapentin), 1 CAP PO BID, (Reported) Hydrochlorothiazide (Hydrochlorothiazide), 1 CAP PO DAILY, (Reported) Lisinopril (Lisinopril), 1 TAB PO DAILY, (Reported) Naproxen (Naproxen), 1 TAB PO BID, (Reported) Thyroid,Pork (Nature-Throid), 65 MG PO DAILY, (Reported) Scheduled PRN Hydrocodone Bit/Acetaminophen ([place] 7.5-325), 1 TAB PO Q6 PRN for PAIN, ( Reported) Tizanidine Hcl (Tizanidine Hcl), 2 MG PO TID PRN for MUSCLE SPASM, (Reported) Discontinued Medications Cyanocobalamin (Vitamin B-12) (Vitamin B-12), 500 MCG PO DAILY, (Reported) Discontinued Reason: No Longer Taking Assessment/Plan Assessment/Plan Patient History: Asthma 32 MOTHER, , Age:78 Cerebrovascular disorder Chronic obstructive pulmonary disease 32 MOTHER, , Age:78 Congestive heart failure 33 FATHER, , Age:75 Diabetes mellitus 32 MOTHER, , Age:78 FH: heart attack 33 FATHER, , Age:75 FH: heart disease 33 FATHER, , Age:75 Hypertension 33 FATHER, , Age:75 No known health problems 19 CHILD 19 CHILD 19 CHILD 19 CHILD Plan DRE glass this morning Change toradol to PRN Continue PT. Med list review, she has been on Lyrica and Neurontin, will DC Lyrica. JAX DAVIS NP Nov 02, 2016 08:34
--- NOTE | 2016-11-02 08:50 | NUR ---
OT OT @ bedside assisting pt with ADLs. No s/s of distress noted.
[2016-11-02] MEDS: BACTROBAN NASAL NS SCH ×2 (09:00→21:49)
--- NOTE | 2016-11-02 09:04 | NUR ---
Glass Glass dc'd using aseptic technique. Pt getting into shower for hygiene. No discomfort noted. 400 ml of clear, yellow urine removed from glass bag. Pt is DTV @ [id number].
[2016-11-02] MEDS: NEURONTIN PO SCH ×2 (10:09→21:48)
[2016-11-02] MEDS: TORADOL IV PRN ×2 (10:09→18:23)
[2016-11-02] MEDS: ZESTRIL PO SCH (10:09)
[2016-11-02] MEDS: COLACE PO SCH (10:09)
[2016-11-02] MEDS: PEPCID PO SCH (10:09)
[2016-11-02] MEDS: CELEBREX PO SCH ×2 (10:10→21:48)
[2016-11-02] MEDS: VITAMIN B-12 PO SCH (10:10)
[2016-11-02] MEDS: HYDROCHLOROTHIAZIDE PO SCH (10:10)
[2016-11-02] MEDS: XARELTO PO SCH (10:11)
--- NOTE | 2016-11-02 10:28 | NUR ---
PT Pt ambulating hayes with use of walker and x1 assist by therapy staff. No s/s of distress noted.
--- NOTE | 2016-11-02 12:15 | NUR ---
Status Meal served to pt, sitting up in recliner @ side of bed. Pt denies wanting to be placed on CPM or reapplying ice-man @ this time.
[2016-11-02 12:32] VITALS: BP 96/55
--- NOTE | 2016-11-02 14:50 | NUR ---
Status Pt was assisted to BR with x 1 assist, able to ambulate with use of walker. Pt voided clear, yellow, aromatic urine.
--- NOTE | 2016-11-02 15:00 | NUR ---
CPM Pt was placed on CPM, SCDs and ice-man reapplied. Pt sitting up in SF position, no s/s of distress noted.
--- NOTE | 2016-11-02 16:45 | NUR ---
PT Pt ambulating hayes with use of gait belt, walker, and standby assist by therapy staff. No s/s of distress noted.
--- NOTE | 2016-11-02 18:54 | NUR ---
Report Report given and care relinquished to Brittni Story LVN.
[2016-11-02 20:15] VITALS: BP 105/58
[2016-11-02] MEDS ORDERED: NS 250ML 250 ML IV ONE (21:34)
[2016-11-03 00:30] VITALS: BP 101/65
[2016-11-03] MEDS: TORADOL IV PRN (01:01)
[2016-11-03 04:34] VITALS: BP 102/59
[2016-11-03] MEDS: VANCOMYCIN HCL 2 GM in NS 500ML 500 ML IV SCH (05:17)
[2016-11-03 06:16] LABS: BASOPHIL % 0.5 % (0.0-0.2); EOSINOPHIL # 0.3 10^3/uL (0.0-0.2); EOSINOPHIL % 4.2 % (0.0-5.0); HEMATOCRIT 28.5 % (36.0-46.0); HEMOGLOBIN 9.3 g/dL (12.0-15.0); LYMPHOCYTES % 25.8 % (24.0-44.0); MEAN CELL HGB 30.3 pg (26-34); MEAN CELL HGB CONCENTRATION 32.6 g/dL (33-37); MEAN CORP VOLUME 92.8 fL (78-100); MEAN PLATELET VOLUME 9.5 fL (7.8-11.0); MONOCYTES # 0.7 10^3/uL (0.3-0.8); MONOCYTES % 9.3 % (5.0-12.0); NEUTROPHIL # 4.6 10^3/uL (1.8-7.7); NEUTROPHILS % 60.1 % (41.0-85.0); RED CELL DISTRIBUTION WIDTH 13.3 % (11.5-14.5); WHITE BLOOD CELL 7.7 10^3/uL (4.5-11.0)
[2016-11-03] MEDS: NORCO 5 MG PO PRN ×3 (06:26→19:26)
--- NOTE | 2016-11-03 06:30 | NUR ---
REPORT RECEIVED REPORT ON PT. THIS NURSE ASSUMED CARE.
[2016-11-03 06:33] LABS: CALCIUM 8.2 mg/dL (8.4-10.5); CARBON DIOXIDE 28.9 mmol/L (20.0-32)
[2016-11-03 07:45] VITALS: BP 118/58
--- NOTE | 2016-11-03 08:21 | PRM.PN ---
Subjective Subjective Subjective Awake and alert VSS, afebrile H/H 9.2/28.5 today Up to side of bed eating breakfast Pain okay, taking 1-2 hydrocodone 5mg tablets Good progress with PT Patient History: Asthma 32 MOTHER, , Age:78 Cerebrovascular disorder Chronic obstructive pulmonary disease 32 MOTHER, , Age:78 Congestive heart failure 33 FATHER, , Age:75 Diabetes mellitus 32 MOTHER, , Age:78 FH: heart attack 33 FATHER, , Age:75 FH: heart disease 33 FATHER, , Age:75 Hypertension 33 FATHER, , Age:75 No known health problems 19 CHILD 19 CHILD 19 CHILD 19 CHILD VTE VTE Risk Total Score: >5 VTE Risk Score VTE Risk: Score 0-1 = Low Risk (Aggressive mobilization; early ambulation; no VTE prophylaxis required) Score 2: Moderate Risk (Intermittent/Pneumatic Compression Device OR Lovenox/Heparin/Coumadin) Score 3-4: High Risk (Intermittent/Pneumatic Compression Device AND Lovenox/Heparin/Coumadin) Score > or =5: Highest Risk (Intermittent/Pneumatic Compression Device AND Lovenox/Heparin/Coumadin) Review of Systems Allergies: Coded Allergies: No Known Allergies (Unverified , 08/04/16) Scheduled Cholecalciferol (Vitamin D3) (Vitamin D-3), 5,000 UNIT PO DAILY, (Reported) Cyanocobalamin (Vitamin B-12) (Vitamin B-12), 1 TAB PO DAILY, (Reported) Gabapentin (Gabapentin), 1 CAP PO BID, (Reported) Hydrochlorothiazide (Hydrochlorothiazide), 1 CAP PO DAILY, (Reported) Lisinopril (Lisinopril), 1 TAB PO DAILY, (Reported) Naproxen (Naproxen), 1 TAB PO BID, (Reported) Thyroid,Pork (Nature-Throid), 65 MG PO DAILY, (Reported) Scheduled PRN Hydrocodone Bit/Acetaminophen ([place] 7.5-325), 1 TAB PO Q6 PRN for PAIN, ( Reported) Tizanidine Hcl (Tizanidine Hcl), 2 MG PO TID PRN for MUSCLE SPASM, (Reported) Discontinued Medications Cyanocobalamin (Vitamin B-12) (Vitamin B-12), 500 MCG PO DAILY, (Reported) Discontinued Reason: No Longer Taking Objective Vitals and I/O Vital Sign - Last 24 Hours 11/02/16 11/02/16 11/02/16 11/02/16 10:08 10:09 10:10 11:10 Pulse 70 Resp 18 B/P (MAP) 98/53 98/53 Pulse Ox 91 O2 Delivery Nasal Cannula Room Air O2 Flow Rate 1.00 FiO2 24 11/02/16 11/02/16 11/02/16 11/02/16 12:32 20:15 20:20 21:01 Temp 98.2 98.2 Pulse 69 74 69 Resp 18 18 18 B/P (MAP) 96/55 (69) 105/58 (74) Pulse Ox 88 87 91 O2 Delivery Room Air Room Air 11/03/16 11/03/16 00:30 04:34 Temp 98.4 97.7 Pulse 63 60 Resp 18 18 B/P (MAP) 101/65 (77) 102/59 (73) Pulse Ox 91 92 O2 Delivery C Pap C Pap Intake and Output 11/02/16 11/02/16 11/03/16 15:00 23:00 07:00 Intake Total 300 ml Output Total 400 ml 300 ml 600 ml Balance -400 ml -300 ml -300 ml Medication Reconciliation Scheduled Cholecalciferol (Vitamin D3) (Vitamin D-3), 5,000 UNIT PO DAILY, (Reported) Cyanocobalamin (Vitamin B-12) (Vitamin B-12), 1 TAB PO DAILY, (Reported) Gabapentin (Gabapentin), 1 CAP PO BID, (Reported) Hydrochlorothiazide (Hydrochlorothiazide), 1 CAP PO DAILY, (Reported) Lisinopril (Lisinopril), 1 TAB PO DAILY, (Reported) Naproxen (Naproxen), 1 TAB PO BID, (Reported) Thyroid,Pork (Nature-Throid), 65 MG PO DAILY, (Reported) Scheduled PRN Hydrocodone Bit/Acetaminophen ([place] 7.5-325), 1 TAB PO Q6 PRN for PAIN, ( Reported) Tizanidine Hcl (Tizanidine Hcl), 2 MG PO TID PRN for MUSCLE SPASM, (Reported) Discontinued Medications Cyanocobalamin (Vitamin B-12) (Vitamin B-12), 500 MCG PO DAILY, (Reported) Discontinued Reason: No Longer Taking Assessment/Plan Assessment/Plan Patient History: Asthma 32 MOTHER, , Age:78 Cerebrovascular disorder Chronic obstructive pulmonary disease 32 MOTHER, , Age:78 Congestive heart failure 33 FATHER, , Age:75 Diabetes mellitus 32 MOTHER, , Age:78 FH: heart attack 33 FATHER, , Age:75 FH: heart disease 33 FATHER, , Age:75 Hypertension 33 FATHER, , Age:75 No known health problems 19 CHILD 19 CHILD 19 CHILD 19 CHILD Plan Continue PT today Plan for DC home tomorrow with [facility] PT JAX DAVIS NP Nov 03, 2016 08:21
[2016-11-03] MEDS: BACTROBAN NASAL NS SCH ×2 (08:58→20:25)
[2016-11-03] MEDS: COLACE PO SCH (08:59)
[2016-11-03] MEDS: VITAMIN B-12 PO SCH (08:59)
[2016-11-03] MEDS: CELEBREX PO SCH ×2 (08:59→20:26)
[2016-11-03] MEDS: NEURONTIN PO SCH ×2 (08:59→20:26)
[2016-11-03] MEDS: ZESTRIL PO SCH (08:59)
[2016-11-03] MEDS: PEPCID PO SCH (08:59)
[2016-11-03] MEDS: XARELTO PO SCH (08:59)
[2016-11-03] MEDS: HYDROCHLOROTHIAZIDE PO SCH (09:00)
--- NOTE | 2016-11-03 10:41 | NUR ---
AMBULATING PT AMBULATING IN HALLWAY WITH PT AT THIS TIME. NO DISTRESS OR SOB NOTED.
[2016-11-03 12:00] VITALS: BP 112/59
--- NOTE | 2016-11-03 13:00 | NUR ---
CPM PT PLACED ON CPM MACHINE AT THIS TIME.
--- NOTE | 2016-11-03 15:27 | PNH ---
SUBJECTIVE: No acute events overnight. She is working well with physical therapy. Pain is well controlled. There are no signs of any active bleeding. OBJECTIVE: VITAL SIGNS: T-max last 24 hours 98.2, pulse of 67, respiratory rate is 18, blood pressure 145/75, O2 saturation 91% on room air. She did have a recording earlier of 87% on room air. GENERAL: She is alert, no acute distress at the time of exam. HEENT: Pupils are equal, round, reactive to light. Sclerae are anicteric. Oropharynx is clear. Mucous membranes are moist. NECK: Supple. No lymphadenopathy. CARDIOVASCULAR: At the time of exam is regular rate and rhythm. LUNGS: Clear bilaterally. ABDOMEN: Soft. Bowel sounds are present. Nontender to palpation. EXTREMITIES: No cyanosis, clubbing or significant edema. NEUROLOGIC: Grossly nonfocal. LABORATORY STUDIES: CBC with white count of 11.6, hemoglobin 10.7, platelets 253. 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 1. We will continue to follow hemoglobin. There is no need for transfusion at this time. This is due to iron sequestration after orthopedic surgery. 2. Encourage CPAP use at night. 3. Appropriate p.r.n. pain and nausea medication. 4. Encourage use of incentive spirometer. Time spent with the patient on 11/01/2016 is 25 minutes. MD VINITA Aguila/CLAYTON TD: 11/03/2016 09:14 [facility]
--- NOTE | 2016-11-03 16:49 | CNH ---
REFERRING PHYSICIAN: Dr. Porfirio Samuel with Orthopedic Surgery. REASON FOR CONSULTATION: Medical management of multiple medical problems. HISTORY OF PRESENT ILLNESS: The patient is a pleasant 70-year-old woman with a past medical history significant for hypertension, osteoarthritis and history of migraine headaches who presented after total knee arthroplasty. At time of exam, pain is well controlled. She denies any nausea. She has a history of hypertension that reportedly has been well managed. She has good functional status other than the limitations caused by osteoarthritis due to knee pain. After surgery, she has continued to use incentive spirometry as requested. No other acute events noted after surgery. PAST MEDICAL HISTORY: Includes hypertension, osteoarthritis and history of migraine headaches. PAST SURGICAL HISTORY: She has had a hysterectomy, cholecystectomy, tubal ligation, back surgery, right knee arthroscopy and she is status post right total knee arthroplasty. ALLERGIES: NO KNOWN DRUG ALLERGIES. HOME MEDICATIONS: Includes: 1. Vitamin D. 2. Vitamin B12. 3. Gabapentin 300 mg twice a day. 4. Hydrochlorothiazide 12.5 mg daily. 5. Lisinopril 5 mg daily. 6. Naproxen 500 mg twice a day. 7. Thyroid replacement 65 mg daily. 8. Tizanidine 2 mg 3 times a day as needed for muscle spasms. 9. Enterprise p.r.n. for pain. SOCIAL HISTORY: No alcohol, tobacco or illicit drug use history. FAMILY HISTORY: Negative for early coronary disease or diabetes. REVIEW OF SYSTEMS: CARDIAC: She denies chest pain, shortness of breath or dyspnea on exertion. PULMONARY: No cough, sputum production, pleuritic chest pain. GASTROINTESTINAL: No nausea, vomiting, diarrhea or constipation. All else negative on 10-point review of systems except as in HPI. PHYSICAL EXAMINATION: VITAL SIGNS: Initial vital signs, height 167.6 cm, weight 112.5 kg, BMI 40.0, temperature 97.6, pulse of 81, respiratory rate is 18, blood pressure 132/82. O2 saturation 96% on 2 liters nasal cannula. GENERAL: She is alert, in no acute distress at time of exam. HEENT: Pupils equal, round and reactive to light and accommodation. Sclerae are anicteric. Oropharynx is clear. Mucous membranes are moist. NECK: Supple. No lymphadenopathy. CARDIOVASCULAR: At time of exam was regular rate and rhythm. No murmurs. LUNGS: Clear to auscultation bilaterally. No wheezing. ABDOMEN: Soft. Bowel sounds are present. Nontender to palpation. EXTREMITIES: No cyanosis, clubbing or significant edema. NEUROLOGIC: Grossly nonfocal. LABORATORY: Initial labs from 10/28/2016 are relatively normal. CBC done after surgery: WBC is 14.2, hemoglobin 11.9, platelets 264. ASSESSMENT AND PLAN: The patient is a 70-year-old woman status post right total knee arthroplasty with a history of migraine headaches, hypertension, osteoarthritis with anemia secondary to chronic disease due to iron sequestration after orthopedic surgery. 1. We will continue to follow the hemoglobin. She is likely to get a little bit more anemic but unlikely to need transfusion. This is due to iron sequestration after orthopedic surgery. We will follow clinically. 2. Appropriate p.r.n. pain and nausea medication. 3. Deep venous thrombosis prophylaxis. She is on Xarelto. 4. We will continue blood pressure medications, titrate as indicated to control hypertension once pain is well controlled. Thank you very much for this consult. We will follow with you. This plan was discussed with the patient. She is her own decision maker. She does understand and concur with plans. MD VINITA Aguila/NENO TD: 11/03/2016 08:34 MTDD
[2016-11-03 17:02] VITALS: BP 105/53
[2016-11-03 20:00] VITALS: BP 120/67
[2016-11-04 04:00] VITALS: BP 120/70
--- NOTE | 2016-11-04 06:48 | NUR ---
REPORT RECEIVED REPORT ON PT. THIS NURSE ASSUMED CARE.
[2016-11-04 08:00] VITALS: BP 108/63
[2016-11-04] MEDS: HYDROCHLOROTHIAZIDE PO SCH (08:18)
[2016-11-04] MEDS: CELEBREX PO SCH (08:18)
[2016-11-04] MEDS: NEURONTIN PO SCH (08:19)
[2016-11-04] MEDS: ZESTRIL PO SCH (08:19)
[2016-11-04] MEDS: COLACE PO SCH (08:19)
[2016-11-04] MEDS: PEPCID PO SCH (08:19)
[2016-11-04] MEDS: BACTROBAN NASAL NS SCH (08:19)
[2016-11-04] MEDS: VITAMIN B-12 PO SCH (08:19)
[2016-11-04] MEDS: XARELTO PO SCH (08:19)
[2016-11-04] MEDS ORDERED: ACET-687 PO (08:44)
[2016-11-04] MEDS ORDERED: ASPI325T4 PO (08:44)
--- NOTE | 2016-11-04 08:52 | PRM.PN ---
Subjective Subjective Subjective Awake and alert VSS stable, afebrile Walking with walker with PT and nursing well. Pain okay Dressing removed, incision well approximated, no s/s of infection. MNV intact distally Patient History: Asthma 32 MOTHER, , Age:78 Cerebrovascular disorder Chronic obstructive pulmonary disease 32 MOTHER, , Age:78 Congestive heart failure 33 FATHER, , Age:75 Diabetes mellitus 32 MOTHER, , Age:78 FH: heart attack 33 FATHER, , Age:75 FH: heart disease 33 FATHER, , Age:75 Hypertension 33 FATHER, , Age:75 No known health problems 19 CHILD 19 CHILD 19 CHILD 19 CHILD VTE VTE Risk Total Score: >5 VTE Risk Score VTE Risk: Score 0-1 = Low Risk (Aggressive mobilization; early ambulation; no VTE prophylaxis required) Score 2: Moderate Risk (Intermittent/Pneumatic Compression Device OR Lovenox/Heparin/Coumadin) Score 3-4: High Risk (Intermittent/Pneumatic Compression Device AND Lovenox/Heparin/Coumadin) Score > or =5: Highest Risk (Intermittent/Pneumatic Compression Device AND Lovenox/Heparin/Coumadin) Review of Systems Allergies: Coded Allergies: No Known Allergies (Unverified , 08/04/16) Scheduled Aspirin (Aspirin), 325 MG PO BID Cholecalciferol (Vitamin D3) (Vitamin D-3), 5,000 UNIT PO DAILY, (Reported) Cyanocobalamin (Vitamin B-12) (Vitamin B-12), 1 TAB PO DAILY, (Reported) Gabapentin (Gabapentin), 1 CAP PO BID, (Reported) Hydrochlorothiazide (Hydrochlorothiazide), 1 CAP PO DAILY, (Reported) Lisinopril (Lisinopril), 1 TAB PO DAILY, (Reported) Naproxen (Naproxen), 1 TAB PO BID, (Reported) Thyroid,Pork (Nature-Throid), 65 MG PO DAILY, (Reported) Scheduled PRN Acetaminophen With Codeine (Tylenol With Codeine #4 Tablet), 1-2 EACH PO Q4 PRN for PAIN Hydrocodone Bit/Acetaminophen ([place] 7.5-325), 1 TAB PO Q6 PRN for PAIN, ( Reported) Tizanidine Hcl (Tizanidine Hcl), 2 MG PO TID PRN for MUSCLE SPASM, (Reported) Discontinued Medications Cyanocobalamin (Vitamin B-12) (Vitamin B-12), 500 MCG PO DAILY, (Reported) Discontinued Reason: No Longer Taking Objective Vitals and I/O Vital Sign - Last 24 Hours 11/03/16 11/03/16 11/03/16 11/03/16 08:59 09:00 10:30 12:00 Temp 98.1 Pulse 70 67 Resp 18 18 B/P (MAP) 118/58 118/58 112/59 (76) Pulse Ox 92 93 O2 Delivery Room Air FiO2 21 11/03/16 11/03/16 11/03/16 11/03/16 17:02 19:10 20:00 20:24 Temp 98.0 Pulse 65 68 67 Resp 20 19 16 B/P (MAP) 105/53 (70) 120/67 (84) Pulse Ox 96 98 98 O2 Delivery Room Air Nasal Canula Nasal Cannula O2 Flow Rate 2.00 11/03/16 11/04/16 11/04/16 11/04/16 20:24 04:00 08:00 08:18 Temp 98.5 Pulse 89 66 Resp 16 17 17 B/P (MAP) 120/70 (87) 108/63 Pulse Ox 98 98 97 O2 Delivery C Pap Room Air 11/04/16 08:19 B/P (MAP) 108/63 Medication Reconciliation Scheduled Aspirin (Aspirin), 325 MG PO BID Cholecalciferol (Vitamin D3) (Vitamin D-3), 5,000 UNIT PO DAILY, (Reported) Cyanocobalamin (Vitamin B-12) (Vitamin B-12), 1 TAB PO DAILY, (Reported) Gabapentin (Gabapentin), 1 CAP PO BID, (Reported) Hydrochlorothiazide (Hydrochlorothiazide), 1 CAP PO DAILY, (Reported) Lisinopril (Lisinopril), 1 TAB PO DAILY, (Reported) Naproxen (Naproxen), 1 TAB PO BID, (Reported) Thyroid,Pork (Nature-Throid), 65 MG PO DAILY, (Reported) Scheduled PRN Acetaminophen With Codeine (Tylenol With Codeine #4 Tablet), 1-2 EACH PO Q4 PRN for PAIN Hydrocodone Bit/Acetaminophen ([place] 7.5-325), 1 TAB PO Q6 PRN for PAIN, ( Reported) Tizanidine Hcl (Tizanidine Hcl), 2 MG PO TID PRN for MUSCLE SPASM, (Reported) Discontinued Medications Cyanocobalamin (Vitamin B-12) (Vitamin B-12), 500 MCG PO DAILY, (Reported) Discontinued Reason: No Longer Taking Assessment/Plan Assessment/Plan Patient History: Asthma 32 MOTHER, , Age:78 Cerebrovascular disorder Chronic obstructive pulmonary disease 32 MOTHER, , Age:78 Congestive heart failure 33 FATHER, , Age:75 Diabetes mellitus 32 MOTHER, , Age:78 FH: heart attack 33 FATHER, , Age:75 FH: heart disease 33 FATHER, , Age:75 Hypertension 33 FATHER, , Age:75 No known health problems 19 CHILD 19 CHILD 19 CHILD 19 CHILD Plan Discharge home today with [facility] in [facility] Wear RAMONA hose Continue HH PT RX written for Tylenol #4 and ASA 325 BID for 30 days Follow up in office Monday Leave Aquacel dressing in place until follow up appointment. JAX DAVIS NP Nov 04, 2016 08:52
--- NOTE | 2016-11-04 08:55 | NUR ---
dressing change NEW AQUACEL DRSG PLACED ON PT AT THIS TIME. DISCHARGE PICTURES OBTAINED WELL.
[2016-11-04] MEDS: NORCO 5 MG PO PRN (08:59)
--- NOTE | 2016-11-04 09:03 | PRM.DC ---
Discharge Summary Date of Arrival on Unit: Oct 28, 2016 Reason for Visit: Right knee pain Patient History: Asthma 32 MOTHER, , Age:78 Cerebrovascular disorder Chronic obstructive pulmonary disease 32 MOTHER, , Age:78 Congestive heart failure 33 FATHER, , Age:75 Diabetes mellitus 32 MOTHER, , Age:78 FH: heart attack 33 FATHER, , Age:75 FH: heart disease 33 FATHER, , Age:75 Hypertension 33 FATHER, , Age:75 No known health problems 19 CHILD 19 CHILD 19 CHILD 19 CHILD History Present Illness: General: Alert, Oriented X3, Cooperative, No acute distress HEENT: PERRLA, EOMI Neck: Supple, No JVD Lungs: Clear to auscultation, Normal air movement Heart: Regular rate, Normal S1, Normal S2 Abdomen: Normal bowel sounds, Soft, No tenderness Extremities: No clubbing, No cyanosis Skin: No rashes, No breakdown Neuro: Strength at 5/5 X4 ext, Cranial nerves 3-12 NL Psych/Mental Status: Mental status NL, Mood NL Results(Labs/Rad) Laboratory Tests Test 11/03/16 06:03 White Blood Count 7.7 10^3/uL Red Blood Count 3.07 10^6/uL Hemoglobin 9.3 g/dL Hematocrit 28.5 % Mean Corpuscular Volume 92.8 fL Mean Corpuscular Hemoglobin 30.3 pg Mean Corpuscular Hemoglobin Concent 32.6 g/dL Red Cell Distribution Width 13.3 % Platelet Count 218 10^3/uL Mean Platelet Volume 9.5 fL Neutrophils (%) (Auto) 60.1 % Lymphocytes (%) (Auto) 25.8 % Monocytes (%) (Auto) 9.3 % Neutrophils # (Auto) 4.6 10^3/uL Lymphocytes # (Auto) 2.0 10^3/uL Monocytes # (Auto) 0.7 10^3/uL Absolute Immature Granulocyte (auto 0.01 10^3 u/L Eosinophils % 4.2 % Basophils % 0.5 % Basophils # 0.0 10^3/uL Eosinophil Count 0.3 10^3/uL Sodium Level 139 mmol/L Potassium Level 4.0 mmol/L Chloride Level 106.0 mmol/L Carbon Dioxide Level 28.9 mmol/L Anion Gap 8.1 Blood Urea Nitrogen 17 mg/dL Creatinine 0.95 mg/dL Estimated GFR () 70.4 BUN/Creatinine Ratio 17.0 Glucose Level 111 mg/dL Calcium Level 8.2 mg/dL Total Bilirubin 0.2 mg/dL Aspartate Amino Transf (AST/SGOT) 14 U/L Alanine Aminotransferase (ALT/SGPT) 17 U/L Alkaline Phosphatase 36 U/L Total Protein 5.7 g/dL Albumin 2.4 g/dL Globulin 3.3 Percent Immature Gran (Cell Imm) 0.10 % Scheduled Aspirin (Aspirin), 325 MG PO BID Cholecalciferol (Vitamin D3) (Vitamin D-3), 5,000 UNIT PO DAILY, (Reported) Cyanocobalamin (Vitamin B-12) (Vitamin B-12), 1 TAB PO DAILY, (Reported) Gabapentin (Gabapentin), 1 CAP PO BID, (Reported) Hydrochlorothiazide (Hydrochlorothiazide), 1 CAP PO DAILY, (Reported) Lisinopril (Lisinopril), 1 TAB PO DAILY, (Reported) Naproxen (Naproxen), 1 TAB PO BID, (Reported) Thyroid,Pork (Nature-Throid), 65 MG PO DAILY, (Reported) Scheduled PRN Acetaminophen With Codeine (Tylenol With Codeine #4 Tablet), 1-2 EACH PO Q4 PRN for PAIN Hydrocodone Bit/Acetaminophen ([place] 7.5-325), 1 TAB PO Q6 PRN for PAIN, ( Reported) Tizanidine Hcl (Tizanidine Hcl), 2 MG PO TID PRN for MUSCLE SPASM, (Reported) Discontinued Medications Cyanocobalamin (Vitamin B-12) (Vitamin B-12), 500 MCG PO DAILY, (Reported) Discontinued Reason: No Longer Taking Course Blood Pressure Systolic: 120 Blood Pressure Diastolic: 70 Blood Pressure Mean: 87 Notes Ms Dwyer presented after total knee arthroplasty. Her home medications were continued except her Naproxen which was held due to concerns for renal and GI side effects. She did develop a post operative anemia due to iron sequestration after orthopedic surgery but did not require blood transfusion. Pain was well controlled on day of discharge and she was discharged home with home health Plan Discharge Date: Nov 04, 2016 Dicharge DX: 1. Total knee arthroplasty, 2. Anemia of chronic disease Discharge Disposition: Stable Plan Resume medications per discharge list. Wound care and activity per Orthopedic Surgery Follow up with PCP and Orthopedic surgery as scheduled Time spent 25 minutes KASIE SOLIMAN MD Nov 04, 2016 09:02
[2016-11-04 09:40] VITALS: BP 108/63
--- NOTE | 2016-11-04 09:40 | NUR ---
DISCHARGE DISCHARGE INSTRUCTIONS PROVIDED TO PT AT THIS TIME. EXPLAINED TO PT TO KEEP BANDAGE IN PLACE UNTIL FOLLOW UP APPT WITH LINDA October AT 2PM. PT TO TAKE ASA 325MG BID X 30 DAYS AND TYLENOL 4 1 TO 2 TABS PO Q 4 TO 6 HRS PRN FOR PAIN. PT VERBALIZED UNDERSTANDING. PT TO CONTINUE THERAPY WITH [facility]. NUMBER FOR HH WAS GIVEN IN DISCHARGE PAPERWORK. PT VERBALIZED NO OTHER CONCERNS OR NEEDS. RAMONA HOSE WAS APPLIED TO [facility] AT THIS TIME. EXPLAINED TO PT TO PUT HOSE OF FIRST THING IN MORNING AND GAVE EDUCATION ON HOW TO APPLY RAMONA HOSE. PT VERBALIZED UNDERSTANDING. AIDE AND THIS NURSE TO GATHER BELONGINGS FOR PT.
== END 2016-11-04 11:10 | disposition home health service (06) | DRG 470 ==
LOC: MS 10-31 00:07
PROVIDERS: ADMIT Orthopaedic Surgery; ATTEND Orthopaedic Surgery
PROC: 0SRC0J9 Replacement of Right Knee Joint with Synthetic Substitute, Cemented, Open Approach (ICD-10-PCS; principal; 2016-10-31 08:16)
DX: M17.11 Unilateral primary osteoarthritis, right knee (principal); Z68.41 Body mass index [BMI] 40.0-44.9, adult; I10 Essential (primary) hypertension; G43.909 Migraine, unspecified, not intractable, without status migrainosus; Z90.710 Acquired absence of both cervix and uterus; D63.8 Anemia in other chronic diseases classified elsewhere; G47.33 Obstructive sleep apnea (adult) (pediatric); Z79.01 Long term (current) use of anticoagulants; Z90.49 Acquired absence of other specified parts of digestive tract; Z98.51 Tubal ligation status; Z79.899 Other long term (current) drug therapy; Z82.5 Family history of asthma and other chronic lower respiratory diseases; Z82.3 Family history of stroke; Z83.3 Family history of diabetes mellitus; Z82.49 Family history of ischemic heart disease and other diseases of the circulatory system; E66.9 Obesity, unspecified; E03.9 Hypothyroidism, unspecified
CPT/HCPCS: 36415; 64447; 71020; 73560; 80053; 85025; 85027; 87070; 97161; 97165; 97530; J0330; J0690; J1100; J1170; J1885; J2250; J2405; J2795; J3010; J3490; J7030; J7040; J7050; J7120; 97110-GP; 97116-GP; 97535-GO; 97760-GP; C1776; C9399; G8978-CJ; G8978-CL; G8987; G8988; J2710; J3370; J8499

== ENCOUNTER → 2016-12-14 | Outpatient (CLI) | payer OTHER, MEDICARE ==
[~2016-12-14] MED LIST changes: +ACET-687 PO; +ASPI325T4 PO; +CYAN10005 PO; +GABA300C10 PO; +NAPR500T3 PO
[2016-12-14 15:39] LABS: BASOPHIL # 0.1 10^3/uL (0.0-0.1); BASOPHIL % 0.7 % (0.0-0.2); EOSINOPHIL # 0.3 10^3/uL (0.0-0.2); EOSINOPHIL % 3.7 % (0.0-5.0); HEMOGLOBIN 12.4 g/dL (12.0-15.0); LYMPHOCYTES # 2.3 10^3/uL (1.0-4.8); LYMPHOCYTES % 31.7 % (24.0-44.0); MEAN CELL HGB 29.5 pg (26-34); MEAN CELL HGB CONCENTRATION 33.2 g/dL (33-37); MEAN CORP VOLUME 88.8 fL (78-100); MEAN PLATELET VOLUME 9.3 fL (7.8-11.0); MONOCYTES # 0.5 10^3/uL (0.3-0.8); MONOCYTES % 6.7 % (5.0-12.0); NEUTROPHIL # 4.2 10^3/uL (1.8-7.7); NEUTROPHILS % 57.1 % (41.0-85.0); RED CELL DISTRIBUTION WIDTH 13.7 % (11.5-14.5); WHITE BLOOD CELL 7.3 10^3/uL (4.5-11.0)
== END | disposition home or self-care (01) ==
LOC: LAB 15:20
PROVIDERS: ATTEND Orthopaedic Surgery
DX: M25.561 Pain in right knee (principal); Z96.651 Presence of right artificial knee joint
CPT/HCPCS: 36415; 85025; 85651; 86140

== ENCOUNTER → 2017-01-18 | Outpatient (CLI) | payer OTHER, MEDICARE | END | disposition home or self-care (01) | LOC: LAB 17:27 | PROVIDERS: ATTEND Orthopaedic Surgery | DX: M25.561 Pain in right knee (principal) | CPT/HCPCS: 87070; 87075; 87077; 87186 ==

== ENCOUNTER → 2017-01-24 | Outpatient (CLI) | payer OTHER, MEDICARE ==
[~2017-01-24] MED LIST changes: +ASPI325T14 PO; -ASPI325T4 PO; -CHOL20003 PO; +CHOL200074 PO; -NAPR500T3 PO; +NAPR500T4 PO; +THYR130T2 PO
[2017-01-24 14:53] LABS: MEAN CELL HGB 28.7 pg (26-34); MEAN CELL HGB CONCENTRATION 32.5 g/dL (33-37); MEAN CORP VOLUME 88.3 fL (78-100); MEAN PLATELET VOLUME 9.5 fL (7.8-11.0); WHITE BLOOD CELL 7.2 10^3/uL (4.5-11.0)
== END | disposition home or self-care (01) ==
LOC: LAB 14:18
PROVIDERS: ATTEND Orthopaedic Surgery
DX: Z51.81 Encounter for therapeutic drug level monitoring (principal); M25.561 Pain in right knee; Z96.651 Presence of right artificial knee joint
CPT/HCPCS: 36415; 85027; 85651; 86140; 87070; 87075; 87077; 87186

== ENCOUNTER 2017-01-30 00:16 | Inpatient (IN) | payer OTHER, MEDICARE ==
[2017-01-30] VITALS (13 sets, daily range): BP systolic 135–170; BP diastolic 74–94
[~2017-01-30] VITALS: Ht 167.6 cm; Wt 110.7 kg
--- NOTE | 2017-01-30 07:15 | NUR ---
JEANCARLOS DRAINS AFTER RECEIVING REPORT CASS MCNULTY AND I NOTICED BOTH JEANCARLOS DRAINS WERE NOT DRAINING, MILKED BOTH DRAINS TUBES ON BOTH APPEAR TO BE BLOCKED BY COAGULATED BLOOD. NOTIFIED LINDA LEWIS, NO NEW ORDERS RECEIVED. DAUGHTER WAS AT BEDSIDE. SIDE RAILS UP X2, CALL LIGHT REMAINS IN REACH
[2017-01-30] MEDS ORDERED: TYLENOL PO ONE ×2 (08:30→11:41)
[2017-01-30] MEDS ORDERED: NEURONTIN PO ONE (08:30)
[2017-01-30] MEDS ORDERED: NEURONTIN ONE (11:41)
[2017-01-30] MEDS: LACTATED RINGERS 1,000 ML IV SCH ×2 (11:41→16:33)
[2017-01-30 11:49] LABS: CALCIUM 9.2 mg/dL (8.4-10.5)
[2017-01-30] MEDS ORDERED: BACTROBAN NASAL NS ONE (12:02)
--- NOTE | 2017-01-30 12:21 | PCM.HP ---
History of Present Illness Reason for Visit: Right knee pain History of Present Illness 71yo female complains bitterly of right knee pain, even at rest, after having a right total knee arthroplasty on 10-31-16. She has to ambulate with a cane due to the pain. Her lab work did show signs of infection, and after an aspiration of her right knee, the cultures did grow out staph infection. Her xrays show the prosthesis is intact, and there is no air in the soft tissues. Her knee aspirate grew out: Staph aureus, and Staph epidermis. 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 Past Surgical History: Arthroscopy, Cholecystectomy, Total knee replacement ( right), Tubal Ligation, Other Past Social History Smoke: No Alcohol: none Travel Hx EBOLA RISK:Travel to/contact w: No Review of Systems Musculoskeletal: leg pain (Right knee pain) Allergies: Coded Allergies: No Known Allergies (Unverified , 08/04/16) Scheduled Cholecalciferol (Vitamin D3) (Vitamin D-3), 5,000 UNIT PO DAILY, (Reported) Cyanocobalamin (Vitamin B-12) (Vitamin B-12), 1 TAB PO DAILY, (Reported) Hydrochlorothiazide (Hydrochlorothiazide), 1 CAP PO DAILY, (Reported) Lisinopril (Lisinopril), 1 TAB PO DAILY, (Reported) Thyroid,Pork (Nature-Throid), 130 MG PO DAILY, (Reported) Scheduled PRN Gabapentin (Gabapentin), 1 CAP PO BID PRN for PAIN, (Reported) Hydrocodone Bit/Acetaminophen ([place] 7.5-325), 1 TAB PO DAILY PRN for PAIN, ( Reported) Tizanidine Hcl (Tizanidine Hcl), 2 MG PO TID PRN for MUSCLE SPASM, (Reported) Discontinued Medications Acetaminophen With Codeine (Tylenol With Codeine #4 Tablet), 1-2 EACH PO Q4 PRN for PAIN Discontinued Reason: No Longer Taking Aspirin (Aspirin), 325 MG PO BID Discontinued Reason: No Longer Taking Thyroid,Pork (Nature-Throid), 65 MG PO DAILY, (Reported) Discontinued Reason: No Longer Taking VTE VTE Risk Total Score: 5 VTE Risk Score VTE Risk: Score 0-1 = Low Risk (Aggressive mobilization; early ambulation; no VTE prophylaxis required) Score 2: Moderate Risk (Intermittent/Pneumatic Compression Device OR Lovenox/Heparin/Coumadin) Score 3-4: High Risk (Intermittent/Pneumatic Compression Device AND Lovenox/Heparin/Coumadin) Score > or =5: Highest Risk (Intermittent/Pneumatic Compression Device AND Lovenox/Heparin/Coumadin) VTE VTE Present on Admission: No Currently receiving anticoagul: No VTE Risk Total Score: 5 Exam Vital Signs Vital Signs Date Time Temp Pulse Resp B/P (MAP) Pulse Ox O2 Delivery O2 Flow Rate FiO2 01/30/17 11:12 98.2 67 20 140/94 (109) 94 Room Air General Appearance: Alert, Oriented X3, Cooperative, No acute distress HEENT: Atraumatic Respiratory: Clear to auscultation, Normal air movement Cardiovascular: Regular rate, Normal S1, Normal S2, No murmurs Abdominal: Normal bowel sounds, Soft, No tenderness, No hepatospenomegaly Extremities: No clubbing, No cyanosis, No edema, Normal pulses, Other (Right knee, 90 degrees flexion, -5 degrees full extension) Skin: No rash, No breakdown, No lesions Neuro: Normal gait, Normal speech, Strength at 5/5 X4 ext, Normal tone, Sensation intact, Cranial nerves 3-12 NL, Reflexes 2+ Psych/Mental Status: Mental status NL, Mood NL Assessment/Plan Assessment/Plan Assessment/Plan A: Infected right total knee arthroplasty P: Incision and debridement right knee, revision of the right total knee arthroplasty Problems: (1) Infection of prosthetic right knee joint Status: Acute ICD Code: T84.53XA - Infection and inflammatory reaction due to internal right knee prosthesis, initial encounter SNOMED: 778013265, 850701053 (2) HTN (hypertension) Status: Chronic ICD Code: I10 - Essential (primary) hypertension SNOMED: 49108832 (3) Sleep apnea Status: Chronic ICD Code: G47.30 - Sleep apnea, unspecified SNOMED: 28191628 (4) Migraine Status: Chronic ICD Code: G43.909 - Migraine, unspecified, not intractable, without status migrainosus SNOMED: 08863618 Patient History: Asthma 32 MOTHER, , Age:78 Cerebrovascular disorder Chronic obstructive pulmonary disease 32 MOTHER, , Age:78 Congestive heart failure 33 FATHER, , Age:75 Diabetes mellitus 32 MOTHER, , Age:78 FH: heart attack 33 FATHER, , Age:75 FH: heart disease 33 FATHER, , Age:75 Hypertension 33 FATHER, , Age:75 No known health problems 19 CHILD 19 CHILD 19 CHILD 19 CHILD SARAH GARCIA PAC Jan 30, 2017 12:21
[2017-01-30] MEDS: BACTROBAN NS SCH (12:27)
[2017-01-30] MEDS ORDERED: NAROPIN 0.2% 40 MG/20 ML VIAL ONE (12:42)
[2017-01-30] MEDS ORDERED: LACTATED RINGERS 1,000 ML ONE ×2 (12:42→16:56)
[2017-01-30] MEDS ORDERED: DECADRON ONE (12:42)
[2017-01-30] MEDS ORDERED: TORADOL ONE (12:43)
[2017-01-30] MEDS ORDERED: ZEMURON IV ONE (12:43)
[2017-01-30] MEDS ORDERED: LIDOCAINE 2% VIAL ONE (12:43)
[2017-01-30] MEDS ORDERED: ZOFRAN ONE (12:43)
[2017-01-30] MEDS ORDERED: NEOSTIGMINE ONE (12:44)
[2017-01-30] MEDS ORDERED: DILAUDID ONE (12:44)
[2017-01-30] MEDS ORDERED: QUELICIN ONE (12:44)
[2017-01-30] MEDS ORDERED: DIPRIVAN IV ONE (12:45)
[2017-01-30] MEDS ORDERED: SUBLIMAZE ONE (12:45)
[2017-01-30] MEDS ORDERED: SODIUM CHLORIDE IR ONE (14:01)
[2017-01-30] MEDS ORDERED: NS 250ML 250 ML IV ONE ×2 (14:01→15:25)
[2017-01-30] MEDS ORDERED: NS 3000ML IRR IR ONE (14:02)
[2017-01-30] MEDS ORDERED: WATER ONE (14:19)
--- NOTE | 2017-01-30 14:34 | PCM.EKG ---
[facility] Test Date: 2017-01-30 Test Time: 12:42:58 Pat Name: SRUTHI BROWNE Department: Room: Gender: F [employer]: : 1945 Requested By: WIN MCKEON Order Number: [id number] Reading MD: Kameron Samano Measurements Intervals Hunt Rate: 59 P: 53 ID: [id number] QRS: -4 QRSD: 88 T: 15 QT: 462 QTc: 457 Interpretive Statements Sinus bradycardia Low voltage QRS Borderline ECG No previous ECG available for comparison Electronically Signed On 02-01-2017 11:15:05 CDT by Kameron Samano Please click the below link to view image of tracing.
[2017-01-30] MEDS ORDERED: NS 100ML 200 ML IV ONE (15:25)
[2017-01-30] MEDS ORDERED: VANCOMYCIN HCL 2 GM ONE (15:25)
[2017-01-30] MEDS ORDERED: TRANEXAMIC ACID IV ONE (15:25)
[2017-01-30] MEDS ORDERED: VANCOMYCIN IV ONE (16:30)
[2017-01-30] MEDS ORDERED: VANCOMYCIN 1,500 MG in NS 100ML 100 ML IV ONE (16:30)
[2017-01-30] MEDS ORDERED: NS IV ONE (16:30)
[2017-01-30] MEDS ORDERED: LACTATED RINGERS 1,000 ML IV SCH (17:30)
[2017-01-30] MEDS ORDERED: BENADRYL IV PRN (17:30)
[2017-01-30] MEDS ORDERED: BACTROBAN NASAL NS PRN (17:30)
[2017-01-30] MEDS ORDERED: PHENERGAN IV PRN (17:30)
[2017-01-30] MEDS ORDERED: SUBLIMAZE IV PRN (17:30)
[2017-01-30] MEDS ORDERED: TRANDATE IV PRN (17:30)
[2017-01-30] MEDS ORDERED: DILAUDID IV PRN ×2 (17:30)
--- NOTE | 2017-01-30 17:51 | PRM.PN ---
Subjective Subjective Date: Jan 30, 2017 Time: 17:50 Subjective Awake and alert Some pain NVM+ VSS Stable Patient History: Asthma 32 MOTHER, , Age:78 Cerebrovascular disorder Chronic obstructive pulmonary disease 32 MOTHER, , Age:78 Congestive heart failure 33 FATHER, , Age:75 Diabetes mellitus 32 MOTHER, , Age:78 FH: heart attack 33 FATHER, , Age:75 FH: heart disease 33 FATHER, , Age:75 Hypertension 33 FATHER, , Age:75 No known health problems 19 CHILD 19 CHILD 19 CHILD 19 CHILD VTE VTE Risk Total Score: 5 VTE Risk Score VTE Risk: Score 0-1 = Low Risk (Aggressive mobilization; early ambulation; no VTE prophylaxis required) Score 2: Moderate Risk (Intermittent/Pneumatic Compression Device OR Lovenox/Heparin/Coumadin) Score 3-4: High Risk (Intermittent/Pneumatic Compression Device AND Lovenox/Heparin/Coumadin) Score > or =5: Highest Risk (Intermittent/Pneumatic Compression Device AND Lovenox/Heparin/Coumadin) Review of Systems Musculoskeletal: leg pain (Right knee pain) Allergies: Coded Allergies: No Known Allergies (Unverified , 08/04/16) Scheduled Cholecalciferol (Vitamin D3) (Vitamin D-3), 5,000 UNIT PO DAILY, (Reported) Cyanocobalamin (Vitamin B-12) (Vitamin B-12), 1 TAB PO DAILY, (Reported) Hydrochlorothiazide (Hydrochlorothiazide), 1 CAP PO DAILY, (Reported) Lisinopril (Lisinopril), 1 TAB PO DAILY, (Reported) Thyroid,Pork (Nature-Throid), 130 MG PO DAILY, (Reported) Scheduled PRN Gabapentin (Gabapentin), 1 CAP PO BID PRN for PAIN, (Reported) Hydrocodone Bit/Acetaminophen ([place] 7.5-325), 1 TAB PO DAILY PRN for PAIN, ( Reported) Tizanidine Hcl (Tizanidine Hcl), 2 MG PO TID PRN for MUSCLE SPASM, (Reported) Discontinued Medications Acetaminophen With Codeine (Tylenol With Codeine #4 Tablet), 1-2 EACH PO Q4 PRN for PAIN Discontinued Reason: No Longer Taking Aspirin (Aspirin), 325 MG PO BID Discontinued Reason: No Longer Taking Thyroid,Pork (Nature-Throid), 65 MG PO DAILY, (Reported) Discontinued Reason: No Longer Taking Objective Vitals and I/O Vital Sign - Last 24 Hours 01/30/17 01/30/17 01/30/17 01/30/17 11:12 11:12 13:16 13:21 Temp 98.2 Pulse 67 80 56 Resp 20 18 18 B/P (MAP) 140/94 (109) 135/88 (104) 150/84 (106) Pulse Ox 94 96 96 O2 Delivery Room Air Room Air Nasal Canula Nasal Canula 01/30/17 01/30/17 01/30/17 01/30/17 13:25 17:10 17:10 17:15 Temp 98.0 Pulse 62 58 57 Resp 16 18 18 B/P (MAP) 170/80 (110) 156/92 (113) 162/93 (116) Pulse Ox 96 96 98 O2 Delivery Nasal [place] Hi Con Mask Hi Con Mask O2 Flow Rate 10 01/30/17 01/30/17 01/30/17 01/30/17 17:20 17:25 17:30 17:34 Temp 97.7 98.2 Pulse 59 55 52 56 Resp 18 18 18 16 B/P (MAP) 153/74 (100) 150/74 (99) 145/85 (105) 140/80 (100) Pulse Ox 98 94 98 94 O2 Delivery Hi Con Mask Nasal Canula Nasal Canula Nasal Canula 01/30/17 01/30/17 17:40 17:45 Pulse 54 55 Resp 18 18 B/P (MAP) 156/79 (104) 149/75 (99) Pulse Ox 94 96 O2 Delivery Nasal Canula Nasal Canula Intake and Output 01/30/17 01/30/17 01/31/17 15:00 23:00 07:00 Intake Total 400 ml 53935 ml Output Total 580 ml Balance 400 ml 9470 ml Medication Reconciliation Scheduled Cholecalciferol (Vitamin D3) (Vitamin D-3), 5,000 UNIT PO DAILY, (Reported) Cyanocobalamin (Vitamin B-12) (Vitamin B-12), 1 TAB PO DAILY, (Reported) Hydrochlorothiazide (Hydrochlorothiazide), 1 CAP PO DAILY, (Reported) Lisinopril (Lisinopril), 1 TAB PO DAILY, (Reported) Thyroid,Pork (Nature-Throid), 130 MG PO DAILY, (Reported) Scheduled PRN Gabapentin (Gabapentin), 1 CAP PO BID PRN for PAIN, (Reported) Hydrocodone Bit/Acetaminophen ([place] 7.5-325), 1 TAB PO DAILY PRN for PAIN, ( Reported) Tizanidine Hcl (Tizanidine Hcl), 2 MG PO TID PRN for MUSCLE SPASM, (Reported) Discontinued Medications Acetaminophen With Codeine (Tylenol With Codeine #4 Tablet), 1-2 EACH PO Q4 PRN for PAIN Discontinued Reason: No Longer Taking Aspirin (Aspirin), 325 MG PO BID Discontinued Reason: No Longer Taking Thyroid,Pork (Nature-Throid), 65 MG PO DAILY, (Reported) Discontinued Reason: No Longer Taking Course Blood Pressure Systolic: 149 Blood Pressure Diastolic: 75 Blood Pressure Mean: 99 Assessment/Plan Assessment/Plan Patient History: Asthma 32 MOTHER, , Age:78 Cerebrovascular disorder Chronic obstructive pulmonary disease 32 MOTHER, , Age:78 Congestive heart failure 33 FATHER, , Age:75 Diabetes mellitus 32 MOTHER, , Age:78 FH: heart attack 33 FATHER, , Age:75 FH: heart disease 33 FATHER, , Age:75 Hypertension 33 FATHER, , Age:75 No known health problems 19 CHILD 19 CHILD 19 CHILD 19 CHILD WIN MCKEON MD Jan 30, 2017 17:51
[2017-01-30] MEDS: NORCO 5MG PO SCH ×2 (18:13→22:38)
--- NOTE | 2017-01-30 18:49 | DIREP ---
PROCEDURE:XRAY KNEE 1-2 VWS-RT COMPARISON:[facility], , XRAY KNEE 1-2 VWS-RT, 10/31/2016, 10:32 AM. INDICATIONS:POSTOP RIGHT TOTAL KNEE surgery FINDINGS: BONES:Right knee prostheses present, similar in appearance to the prior examination. JOINTS:Normal. SOFT TISSUES:Postsurgical air and surgical drain present in the anterior soft tissues. OTHER:External traction device present. CONCLUSION:Postsurgical changes of the right knee. Dictated by: Francisco Dewey M.D. on 01/30/2017 at 06:46 PM
--- NOTE | 2017-01-30 19:30 | OPH ---
DATE OF SURGERY: 01/30/2017 PREOPERATIVE DIAGNOSIS: Infected right total knee arthroplasty. POSTOPERATIVE DIAGNOSIS: Infected right total knee arthroplasty. OPERATIVE PROCEDURES: 1. Incision and debridement with synovectomy, right knee. 2. Revision of polyethylene tibial component, right knee. SURGEON: Porfirio Samuel MD ANESTHESIA: General endotracheal TOURNIQUET TIME: 85 minutes at 300 mmHg DRAINS: Two BLOOD LOSS: 400 mL DESCRIPTION OF INDICATIONS: The patient is a 71-year-old female, approximately right at 3 months status post a right total knee arthroplasty for osteoarthritis. The patient has continued to complain of pain about the right knee despite conservative treatment. The patient's sed rate is mildly elevated at 45, her white count is normal, her C-reactive protein is normal at 0.05. The patient had her knee aspirated twice, the first time it grew out Staph epi, which was felt to be a contaminant, however the second time it grew out Staph aureus with multiple sensitivities. The patient complained of night pain as well as pain with ambulation. X-rays were negative, and the patient was felt to have an infected total knee arthroplasty, and since she was just 3 months out, we elected to proceed with an I and D and a polyethylene exchange. DESCRIPTION OF PROCEDURE: The patient was placed on the operating table in the supine position. A general endotracheal anesthetic was induced. A well-padded tourniquet was placed around the right thigh. The right lower extremity was then sterilely prepped and draped. The patient had the leg elevated for 60 seconds and then the tourniquet was inflated to 300 mmHg. The knee was flexed to 90 degrees. The previous incision was excised in an elliptical manner, full thickness. The patient had full thickness flaps developed medially and laterally. Medial parapatellar arthrotomy was performed. The patella was deviated laterally. Cultures - aerobic and anaerobic as well as Gram stain were obtained. The patient had a major synovectomy performed with a 10 blade of the suprapatellar pouch. The medial and lateral gutters were cleared using a 10 blade as well as the Versajet system. The patient had the retropatellar fatpad partially excised. The polyethylene component was removed and the posterior capsule and the intercondylar notch was cleared of any debris using the Versajet. The patient then had the components irrigated with chlorhexidine and saline over the components of the total knee. The wound was then irrigated with saline and then subsequently with a Betadine-containing solution. The operating room crew then changed gloves and we used new instruments. A size 10, #4 polyethylene component was impacted back into the Medacta Sphere knee tibial component. It was secured with an anterior screw. There was full extension of the knee and 120 degrees of flexion. The patient then had the wound again copiously irrigated with Betadine-containing solution. The capsule was closed with a #1 barbed PDS in a running manner. Drains were placed medially and laterally prior to capsular closure. The patient then had the skin and subcutaneous closed in one layer using an interrupted #2 Prolene suture. The intervals were then closed with thania. A large Aquacel dressing was applied, reinforced with 4 x 8s, cast padding, and an ABD pad. The patient was extubated in the operating room after the tourniquet was released and sent to recovery in a stable condition. Porfirio Samuel MD DR: LYDIA/capo JOB# [id number]
[2017-01-30] MEDS ORDERED: VANCOMYCIN HCL IV SCH (21:00)
[2017-01-30 21:21] LABS: HEMOGLOBIN 11.2 g/dL (12.0-15.0); MEAN CELL HGB 28.5 pg (26-34); MEAN CELL HGB CONCENTRATION 32.1 g/dL (33-37); MEAN CORP VOLUME 88.8 fL (78-100); MEAN PLATELET VOLUME 9.6 fL (7.8-11.0); RED CELL DISTRIBUTION WIDTH 14.1 % (11.5-14.5); WHITE BLOOD CELL 17.7 10^3/uL (4.5-11.0)
[2017-01-31 00:25] VITALS: BP 124/65
[2017-01-31] MEDS: NORCO 5MG PO SCH ×7 (03:48→23:26)
[2017-01-31] MEDS ORDERED: NS 250ML 250 ML IV ONE (03:55)
[2017-01-31] MEDS: VANCOMYCIN HCL IV SCH ×2 (04:05→08:34)
[2017-01-31 04:53] VITALS: BP 109/54
[2017-01-31 05:35] LABS: HEMOGLOBIN 10.1 g/dL (12.0-15.0); MEAN CELL HGB 28.4 pg (26-34); MEAN CELL HGB CONCENTRATION 32.1 g/dL (33-37); MEAN CORP VOLUME 88.5 fL (78-100); MEAN PLATELET VOLUME 9.5 fL (7.8-11.0); RED CELL DISTRIBUTION WIDTH 14.1 % (11.5-14.5); WHITE BLOOD CELL 10.2 10^3/uL (4.5-11.0)
[2017-01-31] MEDS ORDERED: TRANDATE IV ONE (07:14)
[2017-01-31] MEDS: COLACE PO SCH (08:27)
[2017-01-31] MEDS: PEPCID PO SCH (08:27)
[2017-01-31] MEDS: BACTROBAN NS SCH ×2 (08:28→20:34)
--- NOTE | 2017-01-31 08:36 | PRM.PN ---
Subjective Subjective Date: Jan 31, 2017 Time: 08:34 Subjective Awake and alert Pain ok, complains of a headache this morning M-N-V intact Dressing dry and intact JEANCARLOS drains appear clotted this morning with minimal drainage Afebrile, VSS H/H 02/14 Patient History: Asthma 32 MOTHER, , Age:78 Cerebrovascular disorder Chronic obstructive pulmonary disease 32 MOTHER, , Age:78 Congestive heart failure 33 FATHER, , Age:75 Diabetes mellitus 32 MOTHER, , Age:78 FH: heart attack 33 FATHER, , Age:75 FH: heart disease 33 FATHER, , Age:75 Hypertension 33 FATHER, , Age:75 No known health problems 19 CHILD 19 CHILD 19 CHILD 19 CHILD VTE VTE Risk Total Score: 5 VTE Risk Score VTE Risk: Score 0-1 = Low Risk (Aggressive mobilization; early ambulation; no VTE prophylaxis required) Score 2: Moderate Risk (Intermittent/Pneumatic Compression Device OR Lovenox/Heparin/Coumadin) Score 3-4: High Risk (Intermittent/Pneumatic Compression Device AND Lovenox/Heparin/Coumadin) Score > or =5: Highest Risk (Intermittent/Pneumatic Compression Device AND Lovenox/Heparin/Coumadin) Review of Systems Musculoskeletal: leg pain (Right knee pain) Allergies: Coded Allergies: No Known Allergies (Unverified , 08/04/16) Scheduled Cholecalciferol (Vitamin D3) (Vitamin D-3), 5,000 UNIT PO DAILY, (Reported) Cyanocobalamin (Vitamin B-12) (Vitamin B-12), 1 TAB PO DAILY, (Reported) Hydrochlorothiazide (Hydrochlorothiazide), 1 CAP PO DAILY, (Reported) Lisinopril (Lisinopril), 1 TAB PO DAILY, (Reported) Thyroid,Pork (Nature-Throid), 130 MG PO DAILY, (Reported) Scheduled PRN Gabapentin (Gabapentin), 1 CAP PO BID PRN for PAIN, (Reported) Hydrocodone Bit/Acetaminophen ([place] 7.5-325), 1 TAB PO DAILY PRN for PAIN, ( Reported) Tizanidine Hcl (Tizanidine Hcl), 2 MG PO TID PRN for MUSCLE SPASM, (Reported) Discontinued Medications Acetaminophen With Codeine (Tylenol With Codeine #4 Tablet), 1-2 EACH PO Q4 PRN for PAIN Discontinued Reason: No Longer Taking Aspirin (Aspirin), 325 MG PO BID Discontinued Reason: No Longer Taking Thyroid,Pork (Nature-Throid), 65 MG PO DAILY, (Reported) Discontinued Reason: No Longer Taking Objective Vitals and I/O Vital Sign - Last 24 Hours 01/30/17 01/30/17 01/30/17 01/30/17 11:12 11:12 13:16 13:21 Temp 98.2 Pulse 67 80 56 Resp 20 18 18 B/P (MAP) 140/94 (109) 135/88 (104) 150/84 (106) Pulse Ox 94 96 96 O2 Delivery Room Air Room Air Nasal Canula Nasal Canula 01/30/17 01/30/17 01/30/17 01/30/17 13:25 17:10 17:10 17:15 Temp 98.0 Pulse 62 58 57 Resp 16 18 18 B/P (MAP) 170/80 (110) 156/92 (113) 162/93 (116) Pulse Ox 96 96 98 O2 Delivery Nasal [place] Hi Con Mask Hi Con Mask O2 Flow Rate 10 01/30/17 01/30/17 01/30/17 01/30/17 17:20 17:25 17:30 17:34 Temp 97.7 98.2 Pulse 59 55 52 56 Resp 18 18 18 16 B/P (MAP) 153/74 (100) 150/74 (99) 145/85 (105) 140/80 (100) Pulse Ox 98 94 98 94 O2 Delivery Hi Con Mask Nasal Canula Nasal Canula Nasal Canula 01/30/17 01/30/17 01/30/17 01/30/17 17:40 17:45 17:49 20:01 Temp 98.0 Pulse 54 55 55 Resp 18 18 18 B/P (MAP) 156/79 (104) 149/75 (99) 149/75 (99) Pulse Ox 94 96 95 O2 Delivery Nasal Canula Nasal Canula Nasal Canula Nasal Cannula O2 Flow Rate 2.00 01/30/17 01/30/17 01/31/17 01/31/17 21:52 23:35 00:25 04:53 Temp 98.8 98.9 Pulse 75 68 62 Resp 16 16 18 B/P (MAP) 124/65 (84) 109/54 (72) Pulse Ox 97 91 93 O2 Delivery Nasal Cannula Nasal Cannula C Pap C Pap O2 Flow Rate 2.00 2.00 FiO2 28 Medication Reconciliation Scheduled Cholecalciferol (Vitamin D3) (Vitamin D-3), 5,000 UNIT PO DAILY, (Reported) Cyanocobalamin (Vitamin B-12) (Vitamin B-12), 1 TAB PO DAILY, (Reported) Hydrochlorothiazide (Hydrochlorothiazide), 1 CAP PO DAILY, (Reported) Lisinopril (Lisinopril), 1 TAB PO DAILY, (Reported) Thyroid,Pork (Nature-Throid), 130 MG PO DAILY, (Reported) Scheduled PRN Gabapentin (Gabapentin), 1 CAP PO BID PRN for PAIN, (Reported) Hydrocodone Bit/Acetaminophen ([place] 7.5-325), 1 TAB PO DAILY PRN for PAIN, ( Reported) Tizanidine Hcl (Tizanidine Hcl), 2 MG PO TID PRN for MUSCLE SPASM, (Reported) Discontinued Medications Acetaminophen With Codeine (Tylenol With Codeine #4 Tablet), 1-2 EACH PO Q4 PRN for PAIN Discontinued Reason: No Longer Taking Aspirin (Aspirin), 325 MG PO BID Discontinued Reason: No Longer Taking Thyroid,Pork (Nature-Throid), 65 MG PO DAILY, (Reported) Discontinued Reason: No Longer Taking Course Blood Pressure Systolic: 109 Blood Pressure Diastolic: 54 Blood Pressure Mean: 72 Assessment/Plan Assessment/Plan Patient History: Asthma 32 MOTHER, , Age:78 Cerebrovascular disorder Chronic obstructive pulmonary disease 32 MOTHER, , Age:78 Congestive heart failure 33 FATHER, , Age:75 Diabetes mellitus 32 MOTHER, , Age:78 FH: heart attack 33 FATHER, , Age:75 FH: heart disease 33 FATHER, , Age:75 Hypertension 33 FATHER, , Age:75 No known health problems 19 CHILD 19 CHILD 19 CHILD 19 CHILD Plan Continue with PT Recheck CBC tomorrow Tylenol ordered for headache prn SARAH GARCIA PAC Jan 31, 2017 08:36
[2017-01-31 08:48] VITALS: BP 105/63
[2017-01-31] MEDS ORDERED: TYLENOL PO PRN (09:00)
--- NOTE | 2017-01-31 09:04 | NUR ---
Post op pain rounds post op day #1 after TKA and pain block. Pt was seen around 0700. Pt was lying in bed. States pain block started wear off around 2000 last night. Pt has been taking po pain medications. No complications noted. pt is very pleased with anesthetic and pain block.
--- NOTE | 2017-01-31 10:30 | NUR ---
ambulation PHYSICAL THERAPY AT BEDSIDE TO AMBULATE WITH PATIENT.
--- NOTE | 2017-01-31 10:33 | PRM.CONS ---
History of Present Illness Reason for Consultation: Consult for PICC for long-term antibiotic therapy History of Present Illness This is a 71-year-old female patient who had knee replacement surgery in October, has had increasing severe pain since. Aspiration revealed Staph aureus, and Staph epidermis. She will require PICC line for long-term antibiotic therapy as directed by Dr. Samuel. PICC line should be scheduled for 02/01/2017. 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 Past Surgical History: Arthroscopy, Cholecystectomy, Total knee replacement ( right), Tubal Ligation, Other Past Social History Smoke: No Alcohol: none Travel Hx EBOLA RISK:Travel to/contact w: No Review of Systems Musculoskeletal: leg pain (Right knee pain) Allergies: Coded Allergies: No Known Allergies (Unverified , 08/04/16) Scheduled Cholecalciferol (Vitamin D3) (Vitamin D-3), 5,000 UNIT PO DAILY, (Reported) Cyanocobalamin (Vitamin B-12) (Vitamin B-12), 1 TAB PO DAILY, (Reported) Hydrochlorothiazide (Hydrochlorothiazide), 1 CAP PO DAILY, (Reported) Lisinopril (Lisinopril), 1 TAB PO DAILY, (Reported) Thyroid,Pork (Nature-Throid), 130 MG PO DAILY, (Reported) Scheduled PRN Gabapentin (Gabapentin), 1 CAP PO BID PRN for PAIN, (Reported) Hydrocodone Bit/Acetaminophen ([place] 7.5-325), 1 TAB PO DAILY PRN for PAIN, ( Reported) Tizanidine Hcl (Tizanidine Hcl), 2 MG PO TID PRN for MUSCLE SPASM, (Reported) Discontinued Medications Acetaminophen With Codeine (Tylenol With Codeine #4 Tablet), 1-2 EACH PO Q4 PRN for PAIN Discontinued Reason: No Longer Taking Aspirin (Aspirin), 325 MG PO BID Discontinued Reason: No Longer Taking Thyroid,Pork (Nature-Throid), 65 MG PO DAILY, (Reported) Discontinued Reason: No Longer Taking VTE VTE Risk Total Score: 5 VTE Risk Score VTE Risk: Score 0-1 = Low Risk (Aggressive mobilization; early ambulation; no VTE prophylaxis required) Score 2: Moderate Risk (Intermittent/Pneumatic Compression Device OR Lovenox/Heparin/Coumadin) Score 3-4: High Risk (Intermittent/Pneumatic Compression Device AND Lovenox/Heparin/Coumadin) Score > or =5: Highest Risk (Intermittent/Pneumatic Compression Device AND Lovenox/Heparin/Coumadin) VTE VTE Present on Admission: No Currently receiving anticoagul: No VTE Risk Total Score: 5 Exam Vital Signs Vital Signs Date Time Temp Pulse Resp B/P (MAP) Pulse Ox O2 Delivery O2 Flow Rate FiO2 01/31/17 08:48 99.0 62 18 105/63 (77) 94 C Pap 01/30/17 23:35 2.00 01/30/17 21:52 28 General Appearance: Alert, Oriented X3, Cooperative, No acute distress HEENT: Atraumatic Neuro: Normal speech, Normal tone Psych/Mental Status: Mental status NL, Mood NL Assessment/Plan Assessment/Plan Problems: (1) Obesity (BMI 30-39.9) Status: Chronic ICD Code: E66.9 - Obesity, unspecified SNOMED: 688065028, [id number] (2) HTN (hypertension) Status: Chronic ICD Code: I10 - Essential (primary) hypertension SNOMED: 34943298 (3) Infection of prosthetic right knee joint Status: Acute ICD Code: T84.53XA - Infection and inflammatory reaction due to internal right knee prosthesis, initial encounter SNOMED: 368175483, [id number] Patient History: Asthma 32 MOTHER, , Age:78 Cerebrovascular disorder Chronic obstructive pulmonary disease 32 MOTHER, , Age:78 Congestive heart failure 33 FATHER, , Age:75 Diabetes mellitus 32 MOTHER, , Age:78 FH: heart attack 33 FATHER, , Age:75 FH: heart disease 33 FATHER, , Age:75 Hypertension 33 FATHER, , Age:75 No known health problems 19 CHILD 19 CHILD 19 CHILD 19 CHILD Plan Orthopedic care per Dr. Samuel PICC line placement for antibiotic therapy 02/01/[address] Suleman Middleton. WILLIAN JOYCE BUILD AND DEPLOYMENT ENGINEER Jan 31, 2017 10:33
[2017-01-31] MEDS: NORCO 5MG PO PRN ×4 (11:02→20:34)
[2017-01-31] MEDS: CEPACOL SORE THROAT LOZENGE MM PRN ×2 (12:05→14:40)
--- NOTE | 2017-01-31 12:15 | NUR ---
LUNCH LUNCH SERVED, PT STATES SHE WOULD LIKE [facility], PT SITTING IN RECLINER, DAUGHTER AND SPOUSE AT SIDE VISITING WITH PT.
[2017-01-31 12:17] VITALS: BP 142/68
--- NOTE | 2017-01-31 13:00 | NUR ---
DISCHARGE PLAN CM VISITED WITH PATIENT CONCERNING HER DISCHARGE PLAN AND NEED. PATIENT STATED SHE LIVES @ HOME WITH HER WHOM IS ADMITTED DIRECTLY ACROSS THE [facility]. PATIENT HAS A GREAT FAMILY SUPPORT SYSTEM THROUGH A DAUGHTER WHO IS A NURSE. 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 SHE HAS ALL DME IN PLACE FROM PAST RIGHT TKA. CM VISITED WITH PATIENT REGARDING CONSULT RECEIVED FOR PATIENT TO DISCHARGE ON HOME IV ABX THERAPY. PATIENT VOICED CONCERN REGARDING HH SERVICES DUE TO HAVING TROUBLE WITH PREVIOUS COMPANY. SHE STATED [facility] WAITED X2 WEEKS TO COME IN AND START HER PHYSICAL THERAPY. CM THEN REACHED OUT TO LOCAL AGENCIES IN [place], [place]. CM SPOKE TO [facility] WHOM STATED THEY DID NOT TAKE PATIENTS HEALTH INSURANCE, [facility] STATED THEY WERE [facility] STATED THEY DIDN'T HAVE A PHYSICAL THERAPY DEPARTMENT. CM MADE A FOLLOW UP VISIT TO PATIENT REGARDING HH BARRIER. PATIENT STATED SHE WOULD BE WILLING TO GIVE [facility] A SECOND CHANCE, BUT WANTED TO VISIT WITH THEM TO ENSURE ADEQUATE CARE. CM NOTIFIED [facility] AND SPOKE TO MARQUEZ SMITH OUTER DIAMETER TECHNICIAN WHOM STATED SHE WOULD BE UP TO PATIENTS HOSPITAL ROOM TOMORROW 02/01/17. CURRENT GOAL FOR PATIENT IS TO RETURN BACK HOME WITH FAMILY TO ROUTINE CARE WITH [facility] FOR IV [facility]FUS[facility] AND [facility] DETENTION WITH PHYSICAL THERAPY SERVICES. CM TO CONTINUE TO FOLLOW PATIENTS PLAN OF CARE.
[2017-01-31] MEDS: VANCOMYCIN HCL 2 GM in NS 500ML 500 ML IV SCH (15:10)
--- NOTE | 2017-01-31 15:25 | NUR ---
ASSISTANCE PT AMBULATED BACK TO BED WITH WALKER, LEFT IN HIGH FOWLERS CALL LIGHT IN REACH, HANDRAIL UP X2. PT DENIES FURTHER NEEDS AT THIS TIME.
[2017-01-31 16:19] VITALS: BP 115/60
[2017-01-31] MEDS ORDERED: NORCO 5MG PO ONE (17:59)
[2017-01-31 19:38] VITALS: BP 115/53
[2017-02-01 00:48] VITALS: BP 120/59
[2017-02-01 03:40] LABS: HEMOGLOBIN 8.5 g/dL (12.0-15.0); MEAN CELL HGB 29.1 pg (26-34); MEAN CELL HGB CONCENTRATION 23.4 g/dL (33-37); MEAN CORP VOLUME 89.7 fL (78-100); RED CELL DISTRIBUTION WIDTH 14.2 % (11.5-14.5); WHITE BLOOD CELL 9.6 10^3/uL (4.5-11.0)
[2017-02-01 03:41] LABS: MEAN PLATELET VOLUME 9.4 fL (7.8-11.0)
--- NOTE | 2017-02-01 03:58 | NUR ---
vancomycin held critical lab value of 21.9. will notify Dr. Samuel of results.
[2017-02-01] MEDS: VANCOMYCIN HCL 2 GM in NS 500ML 500 ML IV SCH (04:00)
[2017-02-01] MEDS: NORCO 5MG PO SCH ×5 (04:06→20:26)
[2017-02-01 04:48] VITALS: BP 130/76
--- NOTE | 2017-02-01 06:02 | NUR ---
NOTIFIED DR. MCKEON ABOUT VANCOMYCIN TROUGH, NEW ORDERS RECEIVED TO HOLD
[2017-02-01] MEDS ORDERED: SUBLIMAZE ONE (06:48)
[2017-02-01] MEDS ORDERED: NS FLUSH ONE (06:49)
[2017-02-01] MEDS ORDERED: SODIUM CHLORIDE 100 ML IV ONE (07:33)
[2017-02-01] MEDS ORDERED: XYLOCAINE ONE (07:38)
--- NOTE | 2017-02-01 07:48 | NUR ---
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
[2017-02-01] MEDS ORDERED: NS 250ML 250 ML IV ONE (07:54)
[2017-02-01 08:27] VITALS: BP 126/75
[2017-02-01] MEDS: BACTROBAN NS SCH ×2 (09:00→20:42)
[2017-02-01] MEDS: COLACE PO SCH (09:09)
[2017-02-01] MEDS: PEPCID PO SCH (09:09)
[2017-02-01] MEDS: NORCO 5MG PO PRN ×2 (09:10→12:53)
--- NOTE | 2017-02-01 09:58 | CCLR ---
DATE OF PROCEDURE: 02/01/2017 PROCEDURES PERFORMED: 1. Right upper extremity venography. 2. Fluoroscopy-guided insertion of 5-Comoran double lumen PowerPICC line in the right basilic vein. COMPLICATIONS: None. BLOOD LOSS: Less than 5 mL. INDICATIONS: The patient is a 71-year-old lady with infected right total knee arthroplasty required by orthopedic surgeon to receive prolonged antibiotic therapy. Therefore, PICC line was recommended. DESCRIPTION OF PROCEDURE: The patient presented to the Director Of Extension Work, signed a proper consent. The right upper extremity venography performed through a radial venous access showing patent veins with good flow with no obstructive disease noted. Therefore, the right basilic vein was cannulated successfully with appropriate needle followed by advancing the guidewire. A 33 cm of the trimmed 5-Comoran double lumen PowerPICC line was advanced into the superior vena cava sutured to the skin with 2 sutures. Positive flush back noted on both ports. The case was concluded with application of the sutures. The procedure was well tolerated. IMPRESSION: 1. Patent right upper extremity veins. 2. Successful insertion of 33 cm of the 5-Comoran double lumen PowerPICC line in the right basilic vein. RECOMMENDATIONS: 1. Okay to start using the PowerPICC line. 2. Please follow sterile flushing technique for each port after each utilization. 3. Please reconsult for any questions, concerns, or removal of the PowerPICC line. Kelly Middleton MD DR: NICOLAS/capo JOB# [id number]
--- NOTE | 2017-02-01 10:05 | PRM.PN ---
Subjective Subjective Time: 10:00 Subjective Pain some better VSS HGB 8.5 recheck Vanc trough elevated Will hold vanc for now Culturs negative so far Cont with PT Patient History: Asthma 32 MOTHER, , Age:78 Cerebrovascular disorder Chronic obstructive pulmonary disease 32 MOTHER, , Age:78 Congestive heart failure 33 FATHER, , Age:75 Diabetes mellitus 32 MOTHER, , Age:78 FH: heart attack 33 FATHER, , Age:75 FH: heart disease 33 FATHER, , Age:75 Hypertension 33 FATHER, , Age:75 No known health problems 19 CHILD 19 CHILD 19 CHILD 19 CHILD VTE VTE Risk Total Score: 5 VTE Risk Score VTE Risk: Score 0-1 = Low Risk (Aggressive mobilization; early ambulation; no VTE prophylaxis required) Score 2: Moderate Risk (Intermittent/Pneumatic Compression Device OR Lovenox/Heparin/Coumadin) Score 3-4: High Risk (Intermittent/Pneumatic Compression Device AND Lovenox/Heparin/Coumadin) Score > or =5: Highest Risk (Intermittent/Pneumatic Compression Device AND Lovenox/Heparin/Coumadin) Review of Systems Musculoskeletal: leg pain (Right knee pain) Allergies: Coded Allergies: No Known Allergies (Unverified , 08/04/16) Scheduled Cholecalciferol (Vitamin D3) (Vitamin D-3), 5,000 UNIT PO DAILY, (Reported) Cyanocobalamin (Vitamin B-12) (Vitamin B-12), 1 TAB PO DAILY, (Reported) Hydrochlorothiazide (Hydrochlorothiazide), 1 CAP PO DAILY, (Reported) Lisinopril (Lisinopril), 1 TAB PO DAILY, (Reported) Thyroid,Pork (Nature-Throid), 130 MG PO DAILY, (Reported) Scheduled PRN Gabapentin (Gabapentin), 1 CAP PO BID PRN for PAIN, (Reported) Hydrocodone Bit/Acetaminophen ([place] 7.5-325), 1 TAB PO DAILY PRN for PAIN, ( Reported) Tizanidine Hcl (Tizanidine Hcl), 2 MG PO TID PRN for MUSCLE SPASM, (Reported) Discontinued Medications Acetaminophen With Codeine (Tylenol With Codeine #4 Tablet), 1-2 EACH PO Q4 PRN for PAIN Discontinued Reason: No Longer Taking Aspirin (Aspirin), 325 MG PO BID Discontinued Reason: No Longer Taking Thyroid,Pork (Nature-Throid), 65 MG PO DAILY, (Reported) Discontinued Reason: No Longer Taking Objective Vitals and I/O Vital Sign - Last 24 Hours 01/31/17 01/31/17 01/31/17 01/31/17 12:17 16:19 19:10 19:38 Temp 99.9 100.0 98.6 Pulse 69 70 68 Resp 18 18 18 B/P (MAP) 142/68 (92) 115/60 (78) 115/53 (73) Pulse Ox 90 94 92 O2 Delivery Room Air Room Air Room Air Room Air 01/31/17 01/31/17 02/01/17 02/01/17 20:44 20:44 00:48 04:48 Temp 99.1 98.6 Pulse 68 68 72 64 Resp 18 18 16 16 B/P (MAP) 120/59 (79) 130/76 (94) Pulse Ox 92 92 92 92 O2 Delivery Nasal Cannula Nasal Cannula Room Air Room Air O2 Flow Rate 2.00 02/01/17 02/01/17 08:27 09:12 Temp 97.2 Pulse 70 Resp 18 B/P (MAP) 126/75 (92) Pulse Ox 93 O2 Delivery Room Air Intake and Output 02/01/17 02/01/17 02/02/17 15:00 23:00 07:00 Output Total 600 ml Balance -600 ml Medication Reconciliation Scheduled Cholecalciferol (Vitamin D3) (Vitamin D-3), 5,000 UNIT PO DAILY, (Reported) Cyanocobalamin (Vitamin B-12) (Vitamin B-12), 1 TAB PO DAILY, (Reported) Hydrochlorothiazide (Hydrochlorothiazide), 1 CAP PO DAILY, (Reported) Lisinopril (Lisinopril), 1 TAB PO DAILY, (Reported) Thyroid,Pork (Nature-Throid), 130 MG PO DAILY, (Reported) Scheduled PRN Gabapentin (Gabapentin), 1 CAP PO BID PRN for PAIN, (Reported) Hydrocodone Bit/Acetaminophen ([place] 7.5-325), 1 TAB PO DAILY PRN for PAIN, ( Reported) Tizanidine Hcl (Tizanidine Hcl), 2 MG PO TID PRN for MUSCLE SPASM, (Reported) Discontinued Medications Acetaminophen With Codeine (Tylenol With Codeine #4 Tablet), 1-2 EACH PO Q4 PRN for PAIN Discontinued Reason: No Longer Taking Aspirin (Aspirin), 325 MG PO BID Discontinued Reason: No Longer Taking Thyroid,Pork (Nature-Throid), 65 MG PO DAILY, (Reported) Discontinued Reason: No Longer Taking Course Blood Pressure Systolic: 126 Blood Pressure Diastolic: 75 Blood Pressure Mean: 92 Assessment/Plan Assessment/Plan Patient History: Asthma 32 MOTHER, , Age:78 Cerebrovascular disorder Chronic obstructive pulmonary disease 32 MOTHER, , Age:78 Congestive heart failure 33 FATHER, , Age:75 Diabetes mellitus 32 MOTHER, , Age:78 FH: heart attack 33 FATHER, , Age:75 FH: heart disease 33 FATHER, , Age:75 Hypertension 33 FATHER, , Age:75 No known health problems 19 CHILD 19 CHILD 19 CHILD 19 CHILD WIN MCKEON MD Feb 01, 2017 10:05
--- NOTE | 2017-02-01 10:56 | NUR ---
SHOWER OT AT BEDSIDE TO ASSIST WITH SHOWER.
[2017-02-01 11:58] VITALS: BP 124/68
--- NOTE | 2017-02-01 13:29 | NUR ---
ambulation CONCRETE INSPECTOR ASSISTED PT BACK TO BED.
--- NOTE | 2017-02-01 13:39 | NUR ---
AMBULATION PT AMBULATING IN [facility] WITH PHYSICAL THERAPY.
[2017-02-01] MEDS: NS IV SCH (15:45)
[2017-02-01] MEDS: VANCOMYCIN HCL IV SCH (15:45)
[2017-02-01 16:27] VITALS: BP 114/61
--- NOTE | 2017-02-01 17:36 | NUR ---
orders PT STATES SHE IS GETTING A MIGRAINE. STATES SHE TAKES EXCEDRIN MIGRAINE AT HOME. NOTIFIED AND GAVE TELEPHONE ORDER THAT PATIENT CAN TAKE HER OWN EXCEDRIN MIGRAINE. PT TOOK 2 TAB PO WITH 250MG ASA, 250MG ACETAMINOPHEN, 65MG CAFFEINE.
[2017-02-01 20:00] VITALS: BP 122/65
[2017-02-01] MEDS: VANCOMYCIN 1,000 MG in NS 100ML 100 ML IV SCH (21:00)
[2017-02-02] VITALS: BP 124/73
[2017-02-02] MEDS: NS IV SCH (04:04)
[2017-02-02] MEDS: VANCOMYCIN HCL IV SCH (04:04)
[2017-02-02] MEDS: NORCO 5MG PO SCH ×6 (04:05→19:58)
[2017-02-02 04:39] VITALS: BP 118/75
[2017-02-02 05:46] LABS: BASOPHIL # 0.1 10^3/uL (0.0-0.1); BASOPHIL % 0.6 % (0.0-0.2); EOSINOPHIL # 0.1 10^3/uL (0.0-0.2); EOSINOPHIL % 1.6 % (0.0-5.0); HEMOGLOBIN 8.8 g/dL (12.0-15.0); LYMPHOCYTES # 2.5 10^3/uL (1.0-4.8); LYMPHOCYTES % 30.9 % (24.0-44.0); MEAN CELL HGB 28.9 pg (26-34); MEAN CELL HGB CONCENTRATION 31.8 g/dL (33-37); MEAN CORP VOLUME 91.1 fL (78-100); MEAN PLATELET VOLUME 9.6 fL (7.8-11.0); MONOCYTES # 0.8 10^3/uL (0.3-0.8); NEUTROPHIL # 4.5 10^3/uL (1.8-7.7); NEUTROPHILS % 56.8 % (41.0-85.0); RED CELL DISTRIBUTION WIDTH 14.3 % (11.5-14.5)
[2017-02-02] MEDS: COLACE PO SCH (08:09)
[2017-02-02] MEDS: PEPCID PO SCH (08:09)
[2017-02-02 08:13] VITALS: BP 140/82
[2017-02-02] MEDS: BACTROBAN NS SCH ×2 (08:13→21:00)
[2017-02-02] MEDS: VANCOMYCIN 1,000 MG in NS 100ML 100 ML IV SCH (08:20)
--- NOTE | 2017-02-02 08:26 | NUR ---
PT LAYING IN BED EATING BREAKFAST AT THIS TIME. PT RATED PAIN AT A 4 OF 10. PT STATES NO OTHER NEEDS AT THIS TIME.
--- NOTE | 2017-02-02 08:27 | PRM.PN ---
Subjective Subjective Date: Feb 02, 2017 Time: 08:26 Subjective Awake and alert Some pain this morning Cultures pending Afebrile, VSS H/H 8.12/11 Up with walker and PT Patient History: Asthma 32 MOTHER, , Age:78 Cerebrovascular disorder Chronic obstructive pulmonary disease 32 MOTHER, , Age:78 Congestive heart failure 33 FATHER, , Age:75 Diabetes mellitus 32 MOTHER, , Age:78 FH: heart attack 33 FATHER, , Age:75 FH: heart disease 33 FATHER, , Age:75 Hypertension 33 FATHER, , Age:75 No known health problems 19 CHILD 19 CHILD 19 CHILD 19 CHILD VTE VTE Risk Total Score: 5 VTE Risk Score VTE Risk: Score 0-1 = Low Risk (Aggressive mobilization; early ambulation; no VTE prophylaxis required) Score 2: Moderate Risk (Intermittent/Pneumatic Compression Device OR Lovenox/Heparin/Coumadin) Score 3-4: High Risk (Intermittent/Pneumatic Compression Device AND Lovenox/Heparin/Coumadin) Score > or =5: Highest Risk (Intermittent/Pneumatic Compression Device AND Lovenox/Heparin/Coumadin) Review of Systems Musculoskeletal: leg pain (Right knee pain) Allergies: Coded Allergies: No Known Allergies (Unverified , 08/04/16) Scheduled Cholecalciferol (Vitamin D3) (Vitamin D-3), 5,000 UNIT PO DAILY, (Reported) Cyanocobalamin (Vitamin B-12) (Vitamin B-12), 1 TAB PO DAILY, (Reported) Hydrochlorothiazide (Hydrochlorothiazide), 1 CAP PO DAILY, (Reported) Lisinopril (Lisinopril), 1 TAB PO DAILY, (Reported) Thyroid,Pork (Nature-Throid), 130 MG PO DAILY, (Reported) Scheduled PRN Gabapentin (Gabapentin), 1 CAP PO BID PRN for PAIN, (Reported) Hydrocodone Bit/Acetaminophen (Acushnet 7.5-325), 1 TAB PO DAILY PRN for PAIN, ( Reported) Tizanidine Hcl (Tizanidine Hcl), 2 MG PO TID PRN for MUSCLE SPASM, (Reported) Discontinued Medications Acetaminophen With Codeine (Tylenol With Codeine #4 Tablet), 1-2 EACH PO Q4 PRN for PAIN Discontinued Reason: No Longer Taking Aspirin (Aspirin), 325 MG PO BID Discontinued Reason: No Longer Taking Thyroid,Pork (Nature-Throid), 65 MG PO DAILY, (Reported) Discontinued Reason: No Longer Taking Objective Vitals and I/O Vital Sign - Last 24 Hours 02/01/17 02/01/17 02/01/17 02/01/17 08:27 09:12 10:32 11:58 Temp 97.2 99.4 Pulse 70 70 70 Resp 18 18 18 B/P (MAP) 126/75 (92) 124/68 (86) Pulse Ox 93 93 95 O2 Delivery Room Air Room Air 02/01/17 02/01/17 02/01/17 02/01/17 16:27 20:00 20:40 20:43 Temp 99.3 98.9 Pulse 71 65 71 Resp 18 18 18 B/P (MAP) 114/61 (78) 122/65 (84) Pulse Ox 92 92 92 O2 Delivery Room Air Room Air Room Air 02/02/17 02/02/17 02/02/17 00:00 04:39 08:13 Temp 99.0 97.6 98.5 Pulse 65 63 71 Resp 16 18 20 B/P (MAP) 124/73 (90) 118/75 (89) 140/82 (101) Pulse Ox 92 93 96 O2 Delivery Room Air Room Air Room Air Medication Reconciliation Scheduled Cholecalciferol (Vitamin D3) (Vitamin D-3), 5,000 UNIT PO DAILY, (Reported) Cyanocobalamin (Vitamin B-12) (Vitamin B-12), 1 TAB PO DAILY, (Reported) Hydrochlorothiazide (Hydrochlorothiazide), 1 CAP PO DAILY, (Reported) Lisinopril (Lisinopril), 1 TAB PO DAILY, (Reported) Thyroid,Pork (Nature-Throid), 130 MG PO DAILY, (Reported) Scheduled PRN Gabapentin (Gabapentin), 1 CAP PO BID PRN for PAIN, (Reported) Hydrocodone Bit/Acetaminophen (Acushnet 7.5-325), 1 TAB PO DAILY PRN for PAIN, ( Reported) Tizanidine Hcl (Tizanidine Hcl), 2 MG PO TID PRN for MUSCLE SPASM, (Reported) Discontinued Medications Acetaminophen With Codeine (Tylenol With Codeine #4 Tablet), 1-2 EACH PO Q4 PRN for PAIN Discontinued Reason: No Longer Taking Aspirin (Aspirin), 325 MG PO BID Discontinued Reason: No Longer Taking Thyroid,Pork (Nature-Throid), 65 MG PO DAILY, (Reported) Discontinued Reason: No Longer Taking Course Blood Pressure Systolic: 140 Blood Pressure Diastolic: 82 Blood Pressure Mean: 101 Assessment/Plan Assessment/Plan Patient History: Asthma 32 MOTHER, , Age:78 Cerebrovascular disorder Chronic obstructive pulmonary disease 32 MOTHER, , Age:78 Congestive heart failure 33 FATHER, , Age:75 Diabetes mellitus 32 MOTHER, , Age:78 FH: heart attack 33 FATHER, , Age:75 FH: heart disease 33 FATHER, , Age:75 Hypertension 33 FATHER, , Age:75 No known health problems 19 CHILD 19 CHILD 19 CHILD 19 CHILD Plan Continue with PT Awaiting results of final culture SARAH AGRCIA PAC Feb 02, 2017 08:27
--- NOTE | 2017-02-02 09:25 | NUR ---
[facility]ER[facility] UPDATE CM FAXED PATIENTS UPDATED LABS (TROUGH), MEDICATIONS AND PHYSICIAN ORDER PER [facility]. CM ALSO NOTIFIED AMERTIA AND SPOKE TO PHARMACIST KIT REGARDING PATIENTS TENTATIVE DISCHARGE FOR TOMORROW 02/03/17. CM TO CONTINUE TO FOLLOW.
[2017-02-02] MEDS: NORCO 5MG PO PRN ×2 (10:11→10:13)
[2017-02-02] MEDS ORDERED: VANC1PLA10 IV (10:28)
[2017-02-02 13:38] VITALS: BP 130/68
--- NOTE | 2017-02-02 14:06 | NUR ---
PT SITTING IN RECLINER AT THIS TIME AT BEDSIDE CALL LIGHT IN REACH.
[2017-02-02 16:21] VITALS: BP 128/72
--- NOTE | 2017-02-02 19:24 | NUR ---
REPORT GIVEN TO ONCOMING SHIFT
[2017-02-02 20:25] VITALS: BP 117/79
[2017-02-03] MEDS: NORCO 5MG PO SCH ×5 (00:13→12:33)
[2017-02-03 00:14] VITALS: BP 132/71
[2017-02-03 04:15] VITALS: BP 134/73
--- NOTE | 2017-02-03 07:05 | NUR ---
REPORT RECEIVED AT THIS TIME.
[2017-02-03] MEDS: PEPCID PO SCH (08:13)
[2017-02-03] MEDS: COLACE PO SCH (08:13)
[2017-02-03 08:20] VITALS: BP 135/62
[2017-02-03] MEDS: BACTROBAN NS SCH (09:00)
--- NOTE | 2017-02-03 09:25 | NUR ---
UPDATE DISCHARGE PLAN CM FAXED PATIENTS UPDATED CLINICAL INFORMATION TO [facility]. CM NOTIFIED [facility] AND SPOKE TO KIT IN PHARMACY REGARDING PATIENTS DISCHARGE FOR TODAY. KIT STATED THAT [facility]S NURSE PEREZ MCKEON RN WILL DELIVER PATIENTS HOME IV ABX THERAPY TO HOSPITAL ROOM TODAY BY NOON. HE ALSO STATED THAT HE HAS NOTIFIED [facility] AND COORDINATE MEDICATION MANAGEMENT/TEACHING WITH THEM. LATONYA THEN NOTIFIED [facility] IN [place], [place] AND SPOKE TO FLOR MCNULTY REGARDING PATIENTS DISCHARGE HOME TODAY, THAT [facility] IS DELIVERING PATIENTS HOME IV ABX TO HOSPITAL BY NOON AND HANDED OFF REPORT. CURRENT GOAL FOR PATIENT IS TO RETURN BACK HOME WTIH TO ROUTINE CARE UPON DISCHARGE WITH [facility] FOR HOME IV ABX THERAPY AND [facility] MONITORING IX THERAPY AND FOR ANY FURTHER DISCHARGE NEEDS. NO FURTHER CM OR DISCHARGE NEEDS KNOWN @ THIS TIME.
[2017-02-03] MEDS: NORCO 5MG PO PRN ×2 (10:23→15:03)
[2017-02-03] MEDS ORDERED: VANCOMYCIN HCL 1 GM in NS 250ML 250 ML IV SCH (11:00)
--- NOTE | 2017-02-03 13:30 | NUR ---
ORDERS TO [facility] FAXED ORDERS TO FOR DR. MCKEON TO SIGN AND SEND BACK. DR. MCKEON SIGNED PHYSICIAN ORDER FOR PATIENTS HOME IX ABX THERAPY DOSE AND TIME, PICC LINES DRESSINGS CHANGES AND LAB DRAWLS. CM FAXED SIGNED ORDER TO [facility] WELL. CM THEN BROUGHT PATIENT WAI'S CONTACT WITH [facility] IN [place], [place] PER REQUEST. PATIENT AND FAMILY DENY FURTHER NEEDS @ THIS TIME WITH CONTACT INFORMATION PROVIDED. NO FURTHER CM OR DISCHARGE NEEDS KNOWN @ THIS TIME.
[2017-02-03 13:43] VITALS: BP 125/69
--- NOTE | 2017-02-03 13:47 | PRM.PN ---
Subjective Subjective Date: Feb 03, 2017 Time: 13:46 Subjective Doing well Pain ok Afebrile Wound ok Will dc Appt 1 week Patient History: Asthma 32 MOTHER, , Age:78 Cerebrovascular disorder Chronic obstructive pulmonary disease 32 MOTHER, , Age:78 Congestive heart failure 33 FATHER, , Age:75 Diabetes mellitus 32 MOTHER, , Age:78 FH: heart attack 33 FATHER, , Age:75 FH: heart disease 33 FATHER, , Age:75 Hypertension 33 FATHER, , Age:75 No known health problems 19 CHILD 19 CHILD 19 CHILD 19 CHILD VTE VTE Risk Total Score: 5 VTE Risk Score VTE Risk: Score 0-1 = Low Risk (Aggressive mobilization; early ambulation; no VTE prophylaxis required) Score 2: Moderate Risk (Intermittent/Pneumatic Compression Device OR Lovenox/Heparin/Coumadin) Score 3-4: High Risk (Intermittent/Pneumatic Compression Device AND Lovenox/Heparin/Coumadin) Score > or =5: Highest Risk (Intermittent/Pneumatic Compression Device AND Lovenox/Heparin/Coumadin) Review of Systems Musculoskeletal: leg pain (Right knee pain) Allergies: Coded Allergies: No Known Allergies (Unverified , 08/04/16) Scheduled Cholecalciferol (Vitamin D3) (Vitamin D-3), 5,000 UNIT PO DAILY, (Reported) Cyanocobalamin (Vitamin B-12) (Vitamin B-12), 1 TAB PO DAILY, (Reported) Hydrochlorothiazide (Hydrochlorothiazide), 1 CAP PO DAILY, (Reported) Lisinopril (Lisinopril), 1 TAB PO DAILY, (Reported) Thyroid,Pork (Nature-Throid), 130 MG PO DAILY, (Reported) Vancomycin/0.9 % Sod Chloride (Vancomycin 1 G/100Ml-0.9% NaCl), 1 GRAM IV Q12H Scheduled PRN Gabapentin (Gabapentin), 1 CAP PO BID PRN for PAIN, (Reported) Hydrocodone Bit/Acetaminophen (Birdseye 7.5-325), 1 TAB PO DAILY PRN for PAIN, ( Reported) Tizanidine Hcl (Tizanidine Hcl), 2 MG PO TID PRN for MUSCLE SPASM, (Reported) Discontinued Medications Acetaminophen With Codeine (Tylenol With Codeine #4 Tablet), 1-2 EACH PO Q4 PRN for PAIN Discontinued Reason: No Longer Taking Aspirin (Aspirin), 325 MG PO BID Discontinued Reason: No Longer Taking Thyroid,Pork (Nature-Throid), 65 MG PO DAILY, (Reported) Discontinued Reason: No Longer Taking Objective Vitals and I/O Vital Sign - Last 24 Hours 02/02/17 02/02/17 02/02/17 02/02/17 16:21 20:25 20:25 20:56 Temp 98.1 97.7 Pulse 67 63 67 Resp 20 20 12 B/P (MAP) 128/72 (90) 117/79 (92) Pulse Ox 93 97 93 O2 Delivery Room Air Room Air Room Air FiO2 21 02/03/17 02/03/17 02/03/17 02/03/17 00:14 04:15 08:20 08:20 Temp 98.2 97.6 98.7 Pulse 71 65 72 Resp 18 16 17 B/P (MAP) 132/71 (91) 134/73 (93) 135/62 (86) Pulse Ox 94 93 93 O2 Delivery C Pap Room Air Room Air Room Air 02/03/17 09:04 Pulse 78 Resp 18 Pulse Ox 96 O2 Delivery Room Air Intake and Output 02/03/17 02/03/17 02/04/17 15:00 23:00 07:00 Intake Total 800 ml Output Total 900 ml Balance -100 ml Medication Reconciliation Scheduled Cholecalciferol (Vitamin D3) (Vitamin D-3), 5,000 UNIT PO DAILY, (Reported) Cyanocobalamin (Vitamin B-12) (Vitamin B-12), 1 TAB PO DAILY, (Reported) Hydrochlorothiazide (Hydrochlorothiazide), 1 CAP PO DAILY, (Reported) Lisinopril (Lisinopril), 1 TAB PO DAILY, (Reported) Thyroid,Pork (Nature-Throid), 130 MG PO DAILY, (Reported) Vancomycin/0.9 % Sod Chloride (Vancomycin 1 G/100Ml-0.9% NaCl), 1 GRAM IV Q12H Scheduled PRN Gabapentin (Gabapentin), 1 CAP PO BID PRN for PAIN, (Reported) Hydrocodone Bit/Acetaminophen (Birdseye 7.5-325), 1 TAB PO DAILY PRN for PAIN, ( Reported) Tizanidine Hcl (Tizanidine Hcl), 2 MG PO TID PRN for MUSCLE SPASM, (Reported) Discontinued Medications Acetaminophen With Codeine (Tylenol With Codeine #4 Tablet), 1-2 EACH PO Q4 PRN for PAIN Discontinued Reason: No Longer Taking Aspirin (Aspirin), 325 MG PO BID Discontinued Reason: No Longer Taking Thyroid,Pork (Nature-Throid), 65 MG PO DAILY, (Reported) Discontinued Reason: No Longer Taking Course Blood Pressure Systolic: 125 Blood Pressure Diastolic: 69 Blood Pressure Mean: 87 Assessment/Plan Assessment/Plan Patient History: Asthma 32 MOTHER, , Age:78 Cerebrovascular disorder Chronic obstructive pulmonary disease 32 MOTHER, , Age:78 Congestive heart failure 33 FATHER, , Age:75 Diabetes mellitus 32 MOTHER, , Age:78 FH: heart attack 33 FATHER, , Age:75 FH: heart disease 33 FATHER, , Age:75 Hypertension 33 FATHER, , Age:75 No known health problems 19 CHILD 19 CHILD 19 CHILD 19 CHILD WIN MCKEON MD Feb 03, 2017 13:47
--- NOTE | 2017-02-03 13:57 | NUR ---
DR. MCKEON AT BEDSIDE. DR. MCKEON REMOVED AQUACEL AND ORDERED TO PUT ON NEW AQUCEL. NEW AQUACEL APPLIED FOLLOWED BY IKE BANDAGE FOR SUPPORT. PT DOES NOT C/O PAIN OR DISCOMFORT DISCHARGE PICTURES TAKEN AT THIS TIME.
[2017-02-03 15:07] VITALS: BP 125/69
--- NOTE | 2017-02-03 15:07 | NUR ---
DISCHARGE PT DISCHARGED FROM FACILITY. PT UNDERSTANDS HOME ABX THERAPY ALONG WITH PRESCRIPTION FOR PAIN MEDICATION. PT UNDERSTANDS TO LEAVE DRESSING ON UNTIL FOLLOW UP WITH DR. MCKEON. PT DENIES ANY OTHER QUESTIONS OR CONCERNS PT PICC LINE WAS HEPARIN LOCKED PRIOR TO DISCHARGE. PT LEAVES BY WHEELCHAIR TO PRIVATE VEHICLE.
--- NOTE | 2017-02-03 22:15 | DSH ---
DATE OF DISCHARGE: 02/03/2017 ADMITTING DIAGNOSIS: Infected right total knee arthroplasty. Other diagnoses include obesity, migraines, sleep apnea, hypertension. DISCHARGE DIAGNOSES: Infected right total knee arthroplasty, obesity, migraines, sleep apnea, hypertension, plus postoperative anemia, expected. OPERATIVE PROCEDURE DATE: January 30, 2017 OPERATIVE PROCEDURE PERFORMED: Incision and debridement with polyethylene revision, right total knee arthroplasty. CONSULTATION: Kelly Middleton MD COMPLICATIONS: None SUMMARY OF ADMISSION: The patient is a 71-year-old female. She is 3 months status post a right total knee arthroplasty for osteoarthritis. The patient has continued to complain of pain about the knee. She has pain at rest as well as pain with ambulation. The patient's sed rate was mildly elevated, in the 40s. Her C-reactive protein was negative on 2 different occasions. The patient's white count has been normal. The patient has had her knee aspirated at 2 different times. The first time, cultures grew out Staphylococcus epidermidis, which was felt to be a contaminated. After the second aspirate had grew out Staphylococcus aureus as well as Staphylococcus epidermidis. Because of continued pain about the knee as well as the positive cultures, the patient was taken to the operating room for the above procedure. The patient's procedure was performed on January 30, 2017. The initial Gram stain was negative. The followup cultures grew out Staphylococcus organisms. The patient has had physical therapy and occupational therapy. The patient has been on vancomycin initially 1.5 grams twice a day. Her trough level was elevated, so approximately 2 days ago, we backed down to 1 gram twice a day. The patient's wound on discharge is benign. She is independent with her transfers and ambulation. The patient is afebrile. The patient had a PICC line placed by Dr. Middleton on February 01, 2017. DISPOSITION: The patient will be discharged today on February 03, 2017. We have arranged for her to have outpatient IV antibiotics specifically vancomycin 1 gram q. 12 hours for the next 6 weeks. She will be instructed to use a walker and weightbear as tolerated. She will wear a brace until she is seen back in the office the next week. She will be given a prescription for tramadol for the pain. She will take aspirin 325 twice a day for DVT prophylaxis. The patient will be seen back in my office in 6 days. Porfirio Samuel MD DR: LYDIA/capo JOB# [id number]
== END 2017-02-03 15:32 | disposition home or self-care (01) | DRG 468 ==
LOC: MS 00:16 → EDPENDDISTM 02-03 15:07
PROVIDERS: ADMIT Orthopaedic Surgery; ATTEND Orthopaedic Surgery
PROC: 0SPC0JC Removal of Synthetic Substitute from Right Knee Joint, Patellar Surface, Open Approach (ICD-10-PCS; 2017-01-30)
PROC: 0SRV0JZ Replacement of Right Knee Joint, Tibial Surface with Synthetic Substitute, Open Approach (ICD-10-PCS; 2017-01-30)
PROC: 0SPV0JZ Removal of Synthetic Substitute from Right Knee Joint, Tibial Surface, Open Approach (ICD-10-PCS; principal; 2017-01-30 15:00)
PROC: 02HV33Z Insertion of Infusion Device into Superior Vena Cava, Percutaneous Approach (ICD-10-PCS; 2017-02-01)
PROC: B5181ZA Fluoroscopy of Superior Vena Cava using Low Osmolar Contrast, Guidance (ICD-10-PCS; 2017-02-01)
PROC: B51M1ZZ Fluoroscopy of Right Upper Extremity Veins using Low Osmolar Contrast (ICD-10-PCS; 2017-02-01)
DX: T84.53XA Infection and inflammatory reaction due to internal right knee prosthesis, initial encounter (principal); B95.8 Unspecified staphylococcus as the cause of diseases classified elsewhere; D64.9 Anemia, unspecified; G43.909 Migraine, unspecified, not intractable, without status migrainosus; E66.9 Obesity, unspecified; Y83.8 Other surgical procedures as the cause of abnormal reaction of the patient, or of later complication, without mention of misadventure at the time of the procedure; G47.33 Obstructive sleep apnea (adult) (pediatric); E03.9 Hypothyroidism, unspecified; I10 Essential (primary) hypertension; Z98.51 Tubal ligation status; Z90.49 Acquired absence of other specified parts of digestive tract; Z88.8 Allergy status to other drugs, medicaments and biological substances; Z82.3 Family history of stroke; Z83.6 Family history of other diseases of the respiratory system; Z83.3 Family history of diabetes mellitus; Z82.49 Family history of ischemic heart disease and other diseases of the circulatory system; Y92.89 Other specified places as the place of occurrence of the external cause; Z68.39 Body mass index [BMI] 39.0-39.9, adult
CPT/HCPCS: 36415; 36569; 64447; 73560; 80053; 80202; 85025; 85027; 87070; 87075; 87077; 87186; 93005; 97162; 97165; A4338; J0330; J1100; J1170; J1642; J1885; J2001; J2405; J2795; J3010; J3490; J7030; J7040; J7050; J7120; Q9967; 75820-LT; 97116-GP; 97530-GP; 97535-GO; A9270; C1713; G8978-CJ; G8979-CI; G8987; G8988; J2710; J3370

== ENCOUNTER 2017-03-23 14:01 | Inpatient (IN) | payer OTHER, MEDICARE ==
[~2017-03-23] VITALS: Ht 167.6 cm; Wt 101.4 kg
[2017-03-23] MEDS: HEPARIN-D5W 20,000 UNIT/500 ML 500 ML IV SCH (09:00)
[~2017-03-23 14:01] MED LIST changes: +VANC1PLA10 IV
[2017-03-23] MEDS ORDERED: HEPARIN IV STA (16:12)
--- NOTE | 2017-03-23 16:25 | NUR ---
RECEIVED PATIENT TO ROOM 337. PATIENT AWAKE AND ALERT. LYING ON BED. ORIENTED. YELLOW SOCKS IN PLACE. DAUGHTER AT BEDSIDE. REPORTS PAIN IN RIGHT KNEE 4 ON PAIN SCALE AT PRESENT. DENIES PAIN IN CHEST, SOB, COUGH OR DISCOMFORT. REPORTS SOB WITH MIN EXERTION. PATIENT IN TO SEE DR ORELLANA TODAY DUE TO EXPERIENCING SOB, SWELLING IN RIGHT LEG. DAUGHTER REPORTS PATIENT HAS NOT SEEN A PROCESS DEVELOPMENT TECHNICIAN IN 6 YEARS. PATIENT HAD ECHO DONE, STRESS TEST, PULMONARY FUNCTION AND DR SAW SOMETHING SUSPICIOUS. DR ORDERED DDIMER WHICH WAS ELEVATED AT 6. PATIENT DIRECT ADMIT FOR CT AND HEPARIN DRIP. ASSESSMENT PERFORMED. IV'S PLACED X2 ONE IN LEFT FOREARM AND ONE IN RIGHT FOREARM. INSTRUCTED RE: HOSPITAL ENVIRONMENT, SIDE RAILS, PAIN MGT, I&O, S/S TO REPORT, MEALS, MEDS, ROUNDS, FALL PRECAUTIONS. PATIENT VERBALIZES UNDERSTANDING.
[2017-03-23] MEDS ORDERED: HEPARIN-D5W 20,000 UNIT/500 ML 500 ML IV ONE (16:30)
[2017-03-23] MEDS ORDERED: NORCO 7.5MG PO PRN (17:00)
[2017-03-23] MEDS ORDERED: NEURONTIN PO PRN (17:00)
[2017-03-23] MEDS ORDERED: ZANAFLEX PO PRN (17:00)
[2017-03-23 17:01] VITALS: BP 144/85
--- NOTE | 2017-03-23 17:12 | NUR ---
DR ORELLANA AT BEDSIDE.
--- NOTE | 2017-03-23 17:16 | NUR ---
PATIENT OFF UNIT TO CT SCAN.
--- NOTE | 2017-03-23 17:45 | NUR ---
PATIENT RETURNED TO ROOM FROM CT SCAN. EATING DINNER TRAY.
--- NOTE | 2017-03-23 17:58 | NUR ---
CTA RESULT PER RADIOLOGIST DR SHANE PATIENT IS POSITIVE FOR BILATERAL PULMONARY EMBOLI, RESULTS CALLED TO DR ORELLANA AND RECEIVED TELEPHONE ORDER TO START HEPARIN PROTOCOL. NICKI MCNULTY NOTIFIED OF ORDERS.
--- NOTE | 2017-03-23 17:59 | DIREP ---
PROCEDURE:CT PULMONARY ANGIOGRAM AND CT VENOGRAM TECHNIQUE:Following the intravenous administration of contrast material, axial cuts were obtained through the chest. Multiplanar / 3-D reconstructions are provided. Satisfactory pulmonary arterial contrast opacification was achieved. Delayed images through the pelvis and upper legs were acquired for a CT venogram. The images were viewed at lung and soft tissue settings. COMPARISON:None. INDICATIONS:PILMONARY EMBOLISM FINDINGS: PULMONARY ARTERIES:Filling defects are present in the left upper lobe pulmonary branches series 64970 images 32-41 and right upper lobe series 17924, image 50. VEINS OF PELVIS/LEGS:Patent. LUNGS:Linear streaky changes in the left lower lobe posteriorly, right lower lobe anteriorly and right middle lobe consistent with scarring. No nodules, infiltrates or mass lesions. CARDIAC:Normal size heart and normal pulmonary vascularity. THYROID:Normal. THORACIC AORTA:Normal. MEDIASTINUM:Normal. PLEURA:Normal. BONES:The patient has had right total knee arthroplasty. Postsurgical changes are present in the anterior distal thigh. PELVIS:Previous hysterectomy. OTHER:Previous cholecystectomy. CONCLUSION: 1. Acute pulmonary emboli involving bilateral upper lobe pulmonary branches. No venous thrombosis is identified. 2. There is mild scarring in both lungs. 3. Previous cholecystectomy, hysterectomy and right total knee arthroplasty. This report was called by telephone at 5:57 pm on March 23, 2017 to floor nurse Roxana who said she would relay the report to Dr. Kameron Samano. . Dictated by: Johnson Felix M.D. on 03/23/2017 at 05:46 PM
[2017-03-23] MEDS: D5W-1/2 NS/KCL 20MEQ 1,000 ML IV SCH (18:44)
[2017-03-23 19:42] VITALS: BP 139/90
[2017-03-23] MEDS: NEURONTIN PO SCH ×2 (20:21→21:00)
[2017-03-23] MEDS: LIPITOR PO SCH (20:22)
[2017-03-23 21:19] LABS: ABG PCO2 36.9 mmHg (35.0-45.0); ABG PH 7.449 (7.350-7.450); BE(B) 1.2 mmol/L (-2.0-2.0); pO2 67.5 mmHg (75.0-100.0)
--- NOTE | 2017-03-23 21:37 | HPH ---
ADMIT DATE: 03/23/2017 CHIEF COMPLAINT: Progressive shortness of breath and dyspnea on exertion. HISTORY OF PRESENT ILLNESS: The patient is a 71-year-old white female who has had 2 knee operations over a 4-fvg-[id number]-half month period, with the last one 7 weeks ago. It was the right knee which got infected and had partial knee placement and revision of the knee was done 7 weeks ago, and apparently, she was not on any anticoagulants except for aspirin. She came with progressive dyspnea and underwent a noninvasive cardiac evaluation with an echocardiogram showing a 40% ejection fraction. PFT was normal, except the [id number] was reduced. Bronchodilator test was not performed. Diffusion capacity was mildly decreased. EKG showed regular sinus rhythm with a right axis deviation and RSR pattern with an incomplete right bundle branch block and persistence of S-waves in V5 and V6, which was concerning about right ventricular strain. Nuclear perfusion imaging showed normal myocardial perfusion scan with no provoked ischemic manifestations. In view of her 2 knee surgeries with swelling of the right knee in the calf region, with some tenderness, and her D-dimer came around at 6, and a CTA was done, which showed pulmonary emboli, and was admitted for further evaluation and management for heparinization, and subsequently, Xarelto loading dose of 15 mg twice a day followed by a maintenance dose of 20 mg once a day after the first 21 days. ALLERGIES: NONE KNOWN. MEDICATIONS: She has a history of hypertension because of a recent change in medicines. She was placed on ramipril 1.25 mg twice a day, thyroid 130 mg once a day for her hypothyroidism. She has been on vitamin B12 1000 mcg once a day, hydrochlorothiazide 12.5 mg once a day, lisinopril 5 mg once a day. She is on gabapentin 300 mg twice a day, hydrocodone 7.5/325 one tablet every 6 hours p.r.n., and tizanidine 2 mg once a day. PAST MEDICAL HISTORY: Two knee operations and obstructive sleep apnea manifestations of several years, on CPAP machine. No history of any known COPD, diabetes, or cardiac disease. Recent normal myocardial perfusion scan done in the office on 03/22/2017. SOCIAL HISTORY: Nonsmoker. No ethanol abuse. FAMILY HISTORY: Positive for heart problems. My office notes shows the details of all her past and present history. PHYSICAL EXAMINATION: GENERAL: She is alert, awake, and oriented; complaining of shortness of breath; 71 years old and 167 cms with a weight of 98 kilograms and a BMI of 35, pulse was 72 and 144/84 mmHg blood pressure, saturation 98% on room air, and temperature 98 degrees Fahrenheit. HEENT: Unremarkable. NECK: No JVD, no carotid bruits. CHEST: Thick chest wall. LUNGS: Poor air entry bilaterally. CARDIOVASCULAR: Heart sounds were normal. ABDOMEN: The abdomen was rounded and obese. No organomegaly was elicited. Bowel sounds were present. EXTREMITIES: The right knee was much more swollen than the left. The right calf shows tenderness with significantly more increased circumferential diameter compared to the left side and mild ankle edema was noted on the right side. Distal pulses fairly well felt. NEUROLOGIC: No focal neuro deficit is documented. LABORATORY DATA and IMAGING STUDIES: Lab data in the office showed cholesterol with an LDL of 130. D-dimer was 6.57. CBC was normal. CT of the chest showed acute pulmonary emboli involving bilateral upper lobes, pulmonary bronchus. Mild scarring of both lobes, previous cholecystectomy, hysterectomy, right total knee arthroplasty reported, and follow-through on the leg report is still not narrated, but definite bilateral upper lobe pulmonary emboli is documented. IMPRESSION: Acute pulmonary emboli, probably on the basis of DVT of the right leg with post 2 right knee operations. PLAN: IV heparinization to maintain PTT at around 55 to 65 seconds, IV fluid because of relative low blood pressure in the context of hypertension, and clinical followup. Willardhand MD [place] DR: BRADLEY/capo JOB# [id number]
--- NOTE | 2017-03-23 21:39 | NUR ---
lactic acid 2.[address] Samano. no orders received
[2017-03-24] VITALS: BP 136/80
--- NOTE | 2017-03-24 01:54 | NUR ---
heprin drip ptt 32.5 increased dose 100units per protocol. infusing at 1000 units/hr. Zakia Marshall RN witnessed
[2017-03-24 04:32] VITALS: BP 121/62
[2017-03-24] MEDS: D5W-1/2 NS/KCL 20MEQ 1,000 ML IV SCH (05:47)
--- NOTE | 2017-03-24 06:15 | NUR ---
REPORT RECEIVED REPORT AND ASSUMED CARE.
[2017-03-24] MEDS: SYNTHROID PO SCH (06:53)
[2017-03-24 07:00] LABS: BASOPHIL % 0.6 % (0.0-0.2); EOSINOPHIL # 0.2 10^3/uL (0.0-0.2); EOSINOPHIL % 3.4 % (0.0-5.0); HEMOGLOBIN 10.5 g/dL (12.0-15.0); LYMPHOCYTES % 30.9 % (24.0-44.0); MEAN CELL HGB 27.5 pg (26-34); MEAN CELL HGB CONCENTRATION 31.1 g/dL (33-37); MEAN CORP VOLUME 88.5 fL (78-100); MEAN PLATELET VOLUME 9.4 fL (7.8-11.0); MONOCYTES # 0.6 10^3/uL (0.3-0.8); MONOCYTES % 9.2 % (5.0-12.0); NEUTROPHIL # 3.6 10^3/uL (1.8-7.7); NEUTROPHILS % 55.7 % (41.0-85.0); RED CELL DISTRIBUTION WIDTH 14.7 % (11.5-14.5); WHITE BLOOD CELL 6.5 10^3/uL (4.5-11.0)
[2017-03-24 07:22] LABS: CARBON DIOXIDE 25.3 mmol/L (20.0-32)
[2017-03-24 07:26] VITALS: BP 125/75
--- NOTE | 2017-03-24 07:43 | NUR ---
HEPARIN DRIP PTT 32.2. HEPARIN DRIP INCREASED BY 100 UNITS/HR PER PROTOCOL. NEXT PTT IN 4 HOURS
[2017-03-24] MEDS: HEPARIN-D5W 20,000 UNIT/500 ML 500 ML IV SCH ×2 (09:00→16:07)
[2017-03-24] MEDS: NEURONTIN PO SCH ×2 (09:29→20:35)
--- NOTE | 2017-03-24 10:25 | NUR ---
Dr. Selwyn Samano at bedside. Order to DC heparin after HS dose of Xarelto 15mg.
--- NOTE | 2017-03-24 10:30 | NUR ---
DISCHARGE PLAN CM/SS VISITED WITH PATIENT CONCERNING HER DISCHARGE PLAN AND NEED. PATIENT LIVES @ HOME WITH HER AND SHE HAS A GREAT FAMILY SUPPORT SYSTEM THROUGH A DAUGHTER WHOM IS A NURSE TO ASSIST HER NEEDED. PATIENT STATED SHE IS INDEPENDENT ON ADLS AND HAS ALL DME IN PLACE FROM A PAST RIGHT TKA. CURRENT GOAL FOR PATIENT IS TO RETURN BACK HOME WITH FAMILY TO ROUTINE SELF CARE UPON DISCHARGE PER PATIENTS REQUEST. CM/SS TO CONTINUE TO FOLLOW PATIENTS PLAN OF CARE AND FOR FURTHER DISCHARGE NEEDS.
[2017-03-24] MEDS: XARELTO PO SCH ×2 (10:36→20:46)
--- NOTE | 2017-03-24 12:14 | NUR ---
HEPARIN DRIP PTT 29.5. HEPARIN DRIP INCREASED TO 1200UNITS/HR PER PROTOCOL.
[2017-03-24 12:30] VITALS: BP 131/65
[2017-03-24] MEDS ORDERED: ATOR40TA PO (16:05)
[2017-03-24] MEDS ORDERED: RIVA15TA PO (16:05)
[2017-03-24] MEDS ORDERED: LEVO50TA PO (16:05)
--- NOTE | 2017-03-24 16:50 | NUR ---
HEPARIN DRIP PTT 37.0. HEPARIN DRIP INCREASED TO 1300UNITS/HR PER PROTOCOL.
[2017-03-24 17:17] VITALS: BP 123/74
--- NOTE | 2017-03-24 18:35 | NUR ---
REPORT REPORT GIVEN TO MARK IVORY TO ASSUME CARE
[2017-03-24] MEDS: LIPITOR PO SCH (20:35)
[2017-03-24 20:38] VITALS: BP 121/61
[2017-03-25 00:15] VITALS: BP 118/74
[2017-03-25] MEDS: D5W-1/2 NS/KCL 20MEQ 1,000 ML IV SCH ×2 (00:46→08:30)
[2017-03-25 04:02] VITALS: BP 121/66
--- NOTE | 2017-03-25 06:30 | NUR ---
Received report from the nightshift nurse.
[2017-03-25] MEDS: SYNTHROID PO SCH (06:36)
[2017-03-25 08:03] VITALS: BP 103/56
[2017-03-25] MEDS: XARELTO PO SCH (08:52)
[2017-03-25] MEDS: NEURONTIN PO SCH (08:52)
--- NOTE | 2017-03-25 11:29 | PNH ---
DATE: 03/24/2017 SUBJECTIVE: The patient is feeling well. She is not having any specific complaints. Objectively, her vital signs are stable, getting fluids and IV heparinization with subtherapeutic PTT probably due to significant clot burden and at the present time, oral Xa inhibitors initiated in the form of Xarelto 15 mg twice a day for pulmonary emboli. OBJECTIVE: VITAL SIGNS: Stable. NECK: No JVD. LUNGS: Clear. HEART: Sounds normal. EXTREMITIES: Swelling in the right leg with calf tenderness, probably has DVT, although not demonstrated on CTA and follow through into the legs. ASSESSMENT: Bilateral upper lobe pulmonary emboli documented, has dyslipidemia with LDL of 120, hypothyroidism, history of hypertension. Normal myocardial perfusion scan, history of obstructive sleep apnea manifestations and no manifestations of hypoxemia at rest. At the present time, compensated pulmonary emboli. PLAN: At this time, we will continue Xarelto, if she is clinically stable and vital signs are stable, probably can be dismissed even on 03/25/2017 with Xarelto 15 mg twice a day for 21 days followed by 20 mg daily. Continue same optimized medical therapy. Laxmichand MD [place] DR: BRADLEY/capo JOB# [id number]
[2017-03-25 12:22] VITALS: BP 113/60
[2017-03-25 13:05] LABS: BASOPHIL % 0.7 % (0.0-0.2); EOSINOPHIL # 0.3 10^3/uL (0.0-0.2); EOSINOPHIL % 4.8 % (0.0-5.0); HEMOGLOBIN 10.8 g/dL (12.0-15.0); LYMPHOCYTES # 1.6 10^3/uL (1.0-4.8); LYMPHOCYTES % 26.5 % (24.0-44.0); MEAN CELL HGB 26.9 pg (26-34); MEAN CELL HGB CONCENTRATION 30.3 g/dL (33-37); MEAN PLATELET VOLUME 9.5 fL (7.8-11.0); MONOCYTES # 0.5 10^3/uL (0.3-0.8); MONOCYTES % 8.4 % (5.0-12.0); NEUTROPHIL # 3.6 10^3/uL (1.8-7.7); NEUTROPHILS % 59.6 % (41.0-85.0); RED CELL DISTRIBUTION WIDTH 14.6 % (11.5-14.5); WHITE BLOOD CELL 6.1 10^3/uL (4.5-11.0)
--- NOTE | 2017-03-25 15:20 | NUR ---
Pt DISCHARGED, WAS ASSISTED BY HER DAUGHTER.
[2017-03-25 15:29] VITALS: BP 113/60
--- NOTE | 2017-03-26 21:00 | DSH ---
DATE OF DISCHARGE: 03/25/2017 FINAL DIAGNOSES: Bilateral pulmonary emboli, dyspnea on exertion, dyslipidemia, history of hypertension, hypertensive heart disease, and hypothyroidism. Please refer to my History and Physical to the point of my impression. HOSPITAL COURSE: The patient is a white female who has had 2 knee surgeries over the last 3-1/2 month period and had an infection of the knee and apparently had not been on Xarelto and was just on aspirin. She came in for an initial full cardiovascular cardiopulmonary evaluation and was noted to have symptoms of dyspnea on exertion and EKG showing some suggestion of an RSR in V1 with persistent S waves in lateral leads. Early manifestation of right axis deviation with no overt hypoxemia at rest. She underwent an echo, which did not show any right ventricular strain, although the EKG was suggestive of the same. She had a saturation of 94% on room air. She has no questionable history of a chest pain. She underwent a perfusion study, myocardial perfusion imaging, that showed no evidence of any provoked ischemic manifestations. Subsequently, PFTs showed a reduction in [id number] without any reactive airway component. She is not a smoker. She is obese and has hypothyroidism. Subsequently, D-dimer showed an elevated value of 6. CT of the lungs showed bilateral upper lobe pulmonary emboli. Her right knee is swollen with calf tenderness, suggestive of possibility of DVT as a source, postoperatively, for her pulmonary emboli. She was started on IV heparinization and subtherapeutic PTT related to a significant thrombus burden, even at 1100 units per hour, and hence was started on Xarelto 15 mg twice a day. She is doing well, has had no symptoms of bleeding or any other problems. She is ambulating and has pain. She was dismissed to home on March 25, 2017 on Lipitor 40 mg once a day, Synthroid 75 mcg once a day, Xarelto 15 mg twice a day for 21 days and then 20 mg once a day, vitamin D3 5000 units daily, vitamin B12 one tablet daily, gabapentin 300 mg twice a day, [place] 7.5/325 one tablet every 6 hours p.r.n. pain, tizanidine 2 mg 3 times a day on a p.r.n. basis, hydrochlorothiazide, lisinopril. Natural thyroid was stopped. We will check back in the office in 1 month. Ambulation was encouraged. Kameron Samano MD DR: Caridad JOB# [id number]
== END 2017-03-25 16:52 | disposition home or self-care (01) | DRG 176 ==
LOC: LAB 14:01 → MS 15:55 → EEVIPCON 15:55 → MS 16:53 → EDPENDDISDT 03-25 11:00 → EDPENDDISTM 03-25 15:20
PROVIDERS: ADMIT Specialist; ATTEND Specialist
DX: I26.99 Other pulmonary embolism without acute cor pulmonale (principal); I45.10 Unspecified right bundle-branch block; I11.9 Hypertensive heart disease without heart failure; E03.9 Hypothyroidism, unspecified; M25.461 Effusion, right knee; G47.33 Obstructive sleep apnea (adult) (pediatric); E66.9 Obesity, unspecified; E78.5 Hyperlipidemia, unspecified; Z79.01 Long term (current) use of anticoagulants; Z79.899 Other long term (current) drug therapy; Z82.49 Family history of ischemic heart disease and other diseases of the circulatory system; Z90.49 Acquired absence of other specified parts of digestive tract; Z68.36 Body mass index [BMI] 36.0-36.9, adult
CPT/HCPCS: 36415; 71275; 73701; 80053; 82803; 83615; 83735; 83880; 85025; 85379; 85610; 85730; 94010; 94729; J1644; J7070; Q9967

== ENCOUNTER 2017-05-30 03:46 | Inpatient (IN) | payer MEDICARE, OTHER ==
[2017-05-29 16:44] VITALS: BP 145/77
[2017-05-29 17:23] LABS: BASOPHIL % 0.4 % (0.0-0.2); EOSINOPHIL # 0.1 10^3/uL (0.0-0.2); EOSINOPHIL % 1.2 % (0.0-5.0); HEMOGLOBIN 11.8 g/dL (12.0-15.0); LYMPHOCYTES # 2.4 10^3/uL (1.0-4.8); LYMPHOCYTES % 33.3 % (24.0-44.0); MEAN CELL HGB 26.9 pg (26-34); MEAN CELL HGB CONCENTRATION 31.6 g/dL (33-37); MEAN PLATELET VOLUME 9.7 fL (7.8-11.0); MONOCYTES # 0.5 10^3/uL (0.3-0.8); MONOCYTES % 6.9 % (5.0-12.0); NEUTROPHIL # 4.2 10^3/uL (1.8-7.7); NEUTROPHILS % 58.1 % (41.0-85.0); RED CELL DISTRIBUTION WIDTH 15.1 % (11.5-14.5); WHITE BLOOD CELL 7.3 10^3/uL (4.5-11.0)
--- NOTE | 2017-05-29 17:55 | DIREP ---
PROCEDURE:CHEST 2 VIEWS COMPARISON:[facility], CR, XRAY CHEST 2 VWS, 10/28/2016, 11:25 AM. INDICATIONS:PRE-OP, RT KNEE STIFFNESS FINDINGS: LUNGS/PLEURA:No significant pulmonary parenchymal abnormalities. No effusions. VASCULATURE:Normal. Unremarkable pulmonary vasculature. CARDIAC:Normal. No cardiac silhouette abnormality or cardiomegaly. MEDIASTINUM:Normal. No visible mass or adenopathy. BONES:Normal. No fracture or visible bony lesion. OTHER:Negative. CONCLUSION:Normal examination. There is no significant change as compared with the previous examination. Dictated by: Frederick Haynes MD on 05/29/2017 at 05:54 PM
[2017-05-29 18:10] LABS: CALCIUM 9.4 mg/dL (8.4-10.5); CARBON DIOXIDE 24.9 mmol/L (20.0-32)
[~2017-05-30] VITALS: Ht 167.6 cm; Wt 97.2 kg
[2017-05-30] VITALS (18 sets, daily range): BP systolic 42–159; BP diastolic 57–93
[~2017-05-30 03:46] MED LIST changes: +ATOR40TA PO; +IRON1CAP15 PO; +LEVO50TA PO; +RAMI10CA PO; +RIVA10TA PO; +RIVA15TA PO; +ROSU10TA PO
[2017-05-30] MEDS ORDERED: NS 1000ML 1,000 ML ONE (05:26)
[2017-05-30] MEDS ORDERED: NS 1000ML 1,000 ML IV ONE (06:00)
[2017-05-30] MEDS ORDERED: TORADOL ONE (07:31)
[2017-05-30] MEDS ORDERED: DECADRON ONE ×2 (07:31→07:53)
[2017-05-30] MEDS ORDERED: ZOFRAN ONE (07:31)
[2017-05-30] MEDS ORDERED: SUBLIMAZE ONE ×2 (07:31→09:34)
[2017-05-30] MEDS ORDERED: DIPRIVAN IV ONE (07:31)
[2017-05-30] MEDS ORDERED: LIDOCAINE 2% VIAL ONE (07:32)
[2017-05-30] MEDS ORDERED: QUELICIN ONE (07:32)
[2017-05-30] MEDS ORDERED: NAROPIN 0.5% 5 MG/ML VIAL ONE ×2 (07:53→08:09)
[2017-05-30] MEDS ORDERED: XYLOCAINE ONE (07:55)
[2017-05-30] MEDS ORDERED: SENSORCAINE-MPF 0.5% VIAL ONE (08:08)
--- NOTE | 2017-05-30 08:40 | NUR ---
DISCHARGE PLAN CM VISITED WITH PATIENT CONCERNING HER DISCHARGE PLAN AND NEED. PATIENT LIVES @ HOME WITH HER AND SHE HAS A GREAT FAMILY SUPPORT SYSTEM THROUGH A DAUGHTER WHOM IS A NURSE TO ASSIST HER NEEDED. PATIENT IS INDEPENDENT ON ADLS AND HAS ALL DME IN PLACE FROM A PAST RIGHT TKA. PATIENTS DAUGHTER HAS ALREADY SPOKEN WITH CM REGARDING PATIENTS CPM MACHINE NEED. ORDERS OBTAINED FROM DR. MCKEON AND FAXED TO [facility] . CM ALSO NOTIFIED [facility] AND SPOKE TO SUE REGARDING PATIENTS CPM MACHINE NEED AND THAT PATIENTS DAUGHTER WANTED TO DRIVE OVER TO [employer] TODAY AND FLOORWORKER LASTING DME. PENDING CPM MACHINE @ THIS TIME. CURRENT GOAL FOR PATIENT IS TO RETURN BACK HOME WITH FAMILY TO ROUTINE SELF CARE UPON DISCHARGE PER PATIENTS REQUEST. CM TO CONTINUE TO FOLLOW PATIENTS PLAN OF CARE AND FOR FURTHER DISCHARGE NEEDS.
[2017-05-30] MEDS ORDERED: CEPACOL SORE THROAT LOZENGE MM PRN (10:00)
[2017-05-30] MEDS ORDERED: LACTATED RINGERS 1,000 ML IV SCH (10:00)
[2017-05-30] MEDS ORDERED: AMBIEN PO PRN (10:00)
--- NOTE | 2017-05-30 10:06 | OPH ---
DATE OF SURGERY: 05/30/2017 PREOPERATIVE DIAGNOSIS: Arthrofibrosis, right total knee replacement. POSTOPERATIVE DIAGNOSIS: Arthrofibrosis, right total knee replacement. OPERATIVE PROCEDURE: Manipulation under anesthesia, right knee. SURGEON: Porfirio Samuel MD ANESTHESIA: LMA. BLOOD LOSS: None. DESCRIPTION OF INDICATIONS: The patient is a 71-year-old female. She had revision of her polyethylene component of the right knee with incision and debridement for knee infection in January 2017. The patient has had difficulty regaining her range of motion. She postoperatively had a pulmonary embolus and has been unable to had the knee manipulated. She has had formal physical therapy without improvement. She has approximately -15 degrees of full extension actively and passively as well as about 7 degrees of flexion. The patient was taken to the operating room today for manipulation under anesthesia of the right knee to try to improve her range of motion. DESCRIPTION OF PROCEDURE: The patient was placed on the operating table in the supine position. An LMA anesthetic was induced without difficulty. The patient then had the knee manipulated. We applied constant sustained pressure in the flexion and extension modes over about a 30 minute time period. In the end, the patient's knee went out into full extension and passively had 110 degrees of flexion. There was good medial and lateral stability. The patient was extubated in the operating room, sent to recovery in stable condition. Porfirio Samuel MD DR: LYDIA/capo JOB# [id number]
[2017-05-30] MEDS: DILAUDID IV PRN ×6 (10:10→17:07)
[2017-05-30] MEDS ORDERED: SUBLIMAZE IV PRN (10:30)
[2017-05-30] MEDS ORDERED: DEMEROL IV PRN (10:30)
[2017-05-30] MEDS ORDERED: NS 1000ML 1,000 ML IV SCH (10:30)
[2017-05-30] MEDS ORDERED: PHENERGAN IV PRN (10:30)
--- NOTE | 2017-05-30 11:00 | NUR ---
ARRIVAL TO UNIT Pt ARRIVED TO UNIT IN HOSPITAL BED, ASSISTED BY OR NURSES SAMI RN, Pt AO X4, HAS CPM MACHINE ON R LEG, PT VOID TO DUE, SNACKS AND FLUIDS OFFERED, SPECIAL VITAL INITIATED, ORIENTED TO CALL LIGHT, BATHROOM, TV REMOTE, BED IN LOW POSITION, ENFORCED Pt TO USED CALL LIGHT IF NEED OF HELP, Pt VERBALIZED UNDERSTANDING. CALL LIGHT WITHIN REACH WILL CONTIUE TO MONITOR Pt.
--- NOTE | 2017-05-30 11:45 | HPH ---
ADMIT DATE: 05/30/2017 CHIEF COMPLAINT: Stiff right knee. HISTORY OF PRESENT ILLNESS: The patient is a 71-year-old female with stiffness in her right knee following revision arthroplasty of the right knee in January 2017. She has had stiffness despite formal physical therapy. The patient unfortunately had a pulmonary embolus postoperatively and we have had to delay the manipulation while she recovers from the pulmonary embolus. The patient's range of motion is -15 degrees to approximately 75. She is being admitted for manipulation under anesthesia, right knee. MEDICATIONS: Include hydrochlorothiazide, lisinopril, tizanidine, gabapentin, naproxen, Crestor and Xarelto. PAST MEDICAL HISTORY: Medical problems include recent pulmonary embolus, hypertension, sleep apnea, migraines and obesity. PREVIOUS SURGICAL PROCEDURES: Include right total knee arthroplasty, right knee arthroscopy, cholecystectomy, hysterectomy and back surgery. ALLERGIES: THE PATIENT HAS NO KNOWN DRUG ALLERGIES. SOCIAL HISTORY: The patient lives in [place] with her . She still works. She does not use alcohol or tobacco. REVIEW OF SYSTEMS: Negative for chest pain, shortness of breath, nausea, vomiting, melena, hematochezia, dysuria, hematuria, fever, chills, or weight loss. FAMILY HISTORY: Unknown. PHYSICAL EXAMINATION: GENERAL: Shows a 5 feet 7 inches, 214 pounds female in no acute distress. HEENT: Within normal limits for her age. CHEST: Clear to auscultation. HEART: Regular rate and rhythm without murmur. ABDOMEN: Soft, nontender, good bowel sounds. EXTREMITIES: Right knee has a well-healed anterior incision. She lacks 15 degrees of full extension and actively and passively has 75 degrees of flexion. There is good medial and lateral stability. NEUROLOGIC: The patient is awake and alert. She is oriented x 3. Her cranial nerves 2-12 are grossly intact. She has 5/5 strength in all muscle groups. ASSESSMENT: Arthrofibrosis, right total knee replacement. Other diagnoses include hypertension, sleep apnea, migraines and history of pulmonary embolus. PLAN: The patient was taken to the operating room today for manipulation under anesthesia. She has been off her Xarelto for the last 5 days and has been cleared by her page designer, Dr. Samano to undergo the procedure under an LMA anesthetic. Porfirio Samuel MD DR: LYDIA/capo JOB# [id number]
[2017-05-30] MEDS: ULTRAM PO SCH ×3 (12:18→20:00)
--- NOTE | 2017-05-30 14:15 | NUR ---
THIS NURSE CALLED PT MS ENRIQUEZ TO CLARIFY ORDER FOR CPM MACHINE THAT IS HOW LONG PT CAN HAVE ON AND HOW LONG OFF, MS ENRIQUEZ REPLIED Pt CAN HAVE CPM MACHINE OFF AND WILL PLACE BACK ONCE SHE RETURNS IN ONE HOUR, REMOVED PCM MACHINE, Pt DENIED TO HAVE PILLOW UNDER THE TO FLOAT THE HEELS WHEN THIS NURSE OFFERED PILLOW, RATHER Pt REQUESTED PILLOW TO PLACE UNDER HER LEFT HAND. Pt VOIDED 400 ML LAKESHA COLOR URINE IN BATHROOM, PT AMBULATED TO BATHROOM WITH 2 PER REGISTERED NURSE FETAL. AND BACK TO BED.
--- NOTE | 2017-05-30 14:15 | NUR ---
CPM UPDATE CM MADE A FOLLOW UP PHONE CALL TO [facility] REGARDING PENDING CPM MACHINE. CM SPOKE TO SUE WHOM STATED PATIENT WOULD BE RESPONSIBLE FOR RENTAL COST OF MACHINE DUE TO PATIENTS INSURANCE ONLY COVERING MACHINE S/P TKA. SUE STATED PATIENTS DAUGHTER COULD STUDY MANAGER CPM MACHINE ANYTIME @ SECOND STORE LOCATION @ [address]. CM THEN NOTIFIED PATIENTS DAUGHTER OF ABOVE DOCUMENTATION AND PROVIDED HER WITH CONTACT INFORMATION FOR [facility] SECOND [facility] @ [phone] AND ADDRESS FOR CPM MACHINE STUDY MANAGER. NO FURTHER CM OR DISCHARGE NEEDS KNOWN @ THIS TIME.
--- NOTE | 2017-05-30 14:20 | NUR ---
Pt DENIES ANY PAIN AND DISCOMFORT AT THIS TIME.
--- NOTE | 2017-05-30 16:26 | NUR ---
Pt AMBULATING ON THE HALLWAY ASSISTED BY PT WITH ROLLING WALKER AND GAIT BELT, Pt TOLERATED WELL.
[2017-05-30] MEDS: ULTRAM PO PRN ×2 (16:43→21:03)
--- NOTE | 2017-05-30 16:50 | NUR ---
PT AT THE BEDSIDE DOING THERAPY, Pt REQUESTED TO HAVE 100 MG OF PRN TRAMADOL INSTEAD OF 50 MG ROUTINE TRAMADOL, PIN AT 8/10 RATING SCALE IN R KNEE. ADMINISTERED PER REQUEST OF Pt.
[2017-05-30] MEDS ORDERED: ZANAFLEX PO PRN (20:30)
[2017-05-30] MEDS ORDERED: ALTACE ONE (20:58)
[2017-05-30] MEDS ORDERED: LIPITOR PO SCH (21:00)
[2017-05-30] MEDS ORDERED: ALTACE PO SCH ×2 (21:00→22:22)
[2017-05-31 00:33] VITALS: BP 120/48
[2017-05-31] MEDS: ULTRAM PO SCH ×3 (04:00→09:08)
[2017-05-31 04:46] VITALS: BP 91/56
[2017-05-31] MEDS: ULTRAM PO PRN (05:10)
--- NOTE | 2017-05-31 06:20 | NUR ---
REPORT RECEIVED REPORT, ASSUMED CARE FOR PATIENT AT THIS TIME.
[2017-05-31] MEDS ORDERED: SYNTHROID PO SCH (06:30)
[2017-05-31 07:18] VITALS: BP 100/57
[2017-05-31] MEDS ORDERED: PEPCID ONE (07:51)
[2017-05-31] MEDS ORDERED: THERA ONE (07:51)
[2017-05-31] MEDS ORDERED: VITAMIN B-12 ONE (07:52)
[2017-05-31] MEDS ORDERED: VITAMIN D ONE (07:52)
[2017-05-31] MEDS ORDERED: COLACE PO ONE (07:53)
[2017-05-31] MEDS: PEPCID PO SCH ×2 (07:57→08:00)
--- NOTE | 2017-05-31 08:03 | NUR ---
CPM ASSISTED PATIENT OFF OF CPM MACHINE. WILL CONTINUE TO MONITOR.
--- NOTE | 2017-05-31 08:42 | PRM.PN ---
Subjective Subjective Date: May 31, 2017 Time: 08:40 Subjective Tolorating CPM well Ambulatory with walker Will dc Needs home cpm for next 2-3 weeks as well as agressive PT Will dc Patient History: Asthma 32 MOTHER, , Age:78 Cerebrovascular disorder Chronic obstructive pulmonary disease 32 MOTHER, , Age:78 Congestive heart failure 33 FATHER, , Age:75 Diabetes mellitus 32 MOTHER, , Age:78 FH: heart attack 33 FATHER, , Age:75 FH: heart disease 33 FATHER, , Age:75 Hypertension 33 FATHER, , Age:75 No known health problems 19 CHILD 19 CHILD 19 CHILD 19 CHILD VTE VTE Risk Total Score: 2 VTE Risk Score VTE Risk: Score 0-1 = Low Risk (Aggressive mobilization; early ambulation; no VTE prophylaxis required) Score 2: Moderate Risk (Intermittent/Pneumatic Compression Device OR Lovenox/Heparin/Coumadin) Score 3-4: High Risk (Intermittent/Pneumatic Compression Device AND Lovenox/Heparin/Coumadin) Score > or =5: Highest Risk (Intermittent/Pneumatic Compression Device AND Lovenox/Heparin/Coumadin) Review of Systems Musculoskeletal: leg pain Allergies: Coded Allergies: No Known Allergies (Unverified , 08/04/16) Scheduled Cholecalciferol (Vitamin D3) (Vitamin D-3), 5,000 UNIT PO DAILY, (Reported) Cyanocobalamin (Vitamin B-12) (Vitamin B-12), 1 TAB PO DAILY, (Reported) Iron Fum & Ps Cmp/Fa/Vit C/B3 (Integra F Capsule), 1 CAP PO DAILY, (Reported) Levothyroxine Sodium (Synthroid), 75 MCG PO ACB Ramipril (Ramipril), 1 CAP PO BID, (Reported) Rivaroxaban (Xarelto), 15 MG PO BID Rivaroxaban (Xarelto), 1.5 TAB PO DAILY, (Reported) Rosuvastatin 10MG (Crestor 10MG), 1 TAB PO HS, (Reported) Scheduled PRN Gabapentin (Gabapentin), 1 CAP PO BID PRN for PAIN, (Reported) Tizanidine Hcl (Tizanidine Hcl), 2 MG PO TID PRN for MUSCLE SPASM, (Reported) Discontinued Medications Atorvastatin 40MG (Lipitor 40MG), 40 MG PO HS Discontinued Reason: No Longer Taking Hydrocodone Bit/Acetaminophen ([place] 7.5-325), 1 TAB PO DAILY PRN for PAIN, ( Reported) Discontinued Reason: No Longer Taking Objective Vitals and I/O Vital Sign - Last 24 Hours 05/30/17 05/30/17 05/30/17 05/30/17 09:54 09:54 09:59 10:04 Temp 98.1 Pulse 92 85 83 Resp 20 20 20 B/P (MAP) 141/84 (103) 153/87 (109) 146/89 (108) Pulse Ox 95 99 97 O2 Delivery Non-Rebreather Non-Rebreather Non-Rebreather O2 Flow Rate 15 05/30/17 05/30/17 05/30/17 05/30/17 10:09 10:14 10:19 10:24 Temp 97.6 97.7 Pulse 72 67 68 66 Resp 20 20 20 20 B/P (MAP) 42/88 (73) 145/78 (100) 139/85 (103) 149/85 (106) Pulse Ox 99 100 100 100 O2 Delivery Non-Rebreather Non-Rebreather Non-Rebreather Non-Rebreather 05/30/17 05/30/17 05/30/17 05/30/17 10:29 10:34 10:39 10:44 Temp 97.8 Pulse 74 80 72 64 Resp 20 20 20 20 B/P (MAP) 141/90 (107) 143/84 (103) 135/73 (93) 153/57 (89) Pulse Ox 100 99 96 98 O2 Delivery Non-Rebreather Room Air Room Air Room Air 05/30/17 05/30/17 05/30/17 05/30/17 10:49 10:54 11:10 11:10 Temp 97.8 98.0 Pulse 73 77 64 64 64 Resp 18 18 20 B/P (MAP) 159/93 (115) 151/82 (105) Pulse Ox 95 95 O2 Delivery Room Air Room Air Room Air 05/30/17 05/30/17 05/30/17 05/31/17 14:49 19:58 21:04 00:02 Temp 98.6 Pulse 67 Resp 18 18 B/P (MAP) 113/73 (86) 113/73 Pulse Ox 95 95 O2 Delivery Room Air Room Air 05/31/17 05/31/17 05/31/17 05/31/17 00:33 04:46 07:18 07:56 Temp 98.7 97.9 98.0 Pulse 67 55 57 Resp 18 18 18 B/P (MAP) 120/48 (72) 91/56 (68) 100/57 (71) 100/57 Pulse Ox 93 97 93 O2 Delivery C Pap Room Air Room Air 05/31/17 08:07 O2 Delivery Room Air Intake and Output 05/30/17 05/30/17 05/31/17 15:00 23:00 07:00 Intake Total 1855 ml 840 ml 400 ml Output Total 400 ml 400 ml 775 ml Balance 1455 ml 440 ml -375 ml Medication Reconciliation Scheduled Cholecalciferol (Vitamin D3) (Vitamin D-3), 5,000 UNIT PO DAILY, (Reported) Cyanocobalamin (Vitamin B-12) (Vitamin B-12), 1 TAB PO DAILY, (Reported) Iron Fum & Ps Cmp/Fa/Vit C/B3 (Integra F Capsule), 1 CAP PO DAILY, (Reported) Levothyroxine Sodium (Synthroid), 75 MCG PO ACB Ramipril (Ramipril), 1 CAP PO BID, (Reported) Rivaroxaban (Xarelto), 15 MG PO BID Rivaroxaban (Xarelto), 1.5 TAB PO DAILY, (Reported) Rosuvastatin 10MG (Crestor 10MG), 1 TAB PO HS, (Reported) Scheduled PRN Gabapentin (Gabapentin), 1 CAP PO BID PRN for PAIN, (Reported) Tizanidine Hcl (Tizanidine Hcl), 2 MG PO TID PRN for MUSCLE SPASM, (Reported) Discontinued Medications Atorvastatin 40MG (Lipitor 40MG), 40 MG PO HS Discontinued Reason: No Longer Taking Hydrocodone Bit/Acetaminophen ([place] 7.5-325), 1 TAB PO DAILY PRN for PAIN, ( Reported) Discontinued Reason: No Longer Taking Course Blood Pressure Systolic: 100 Blood Pressure Diastolic: 57 Blood Pressure Mean: 71 Assessment/Plan Assessment/Plan Patient History: Asthma 32 MOTHER, , Age:78 Cerebrovascular disorder Chronic obstructive pulmonary disease 32 MOTHER, , Age:78 Congestive heart failure 33 FATHER, , Age:75 Diabetes mellitus 32 MOTHER, , Age:78 FH: heart attack 33 FATHER, , Age:75 FH: heart disease 33 FATHER, , Age:75 Hypertension 33 FATHER, , Age:75 No known health problems 19 CHILD 19 CHILD 19 CHILD 19 CHILD WIN MCKEON MD May 31, 2017 08:41
[2017-05-31] MEDS ORDERED: VITAMIN D PO SCH (09:00)
[2017-05-31] MEDS ORDERED: THERA PO SCH (09:00)
[2017-05-31] MEDS ORDERED: VITAMIN B-12 PO SCH (09:00)
[2017-05-31] MEDS ORDERED: COLACE PO SCH (09:00)
--- NOTE | 2017-05-31 09:24 | NUR ---
PATIENT DISCHARGED AT THIS TIME IN STABLE CONDITION. PATIENT WILL BE GOING TO STAY WITH HER DAUGHTER, WAI. SHE WILL BE ASSISTING HER WITH HER CARE. EDUCATED PATIENT ABOUT CPM USE AT HOME, NEW PRESCRIPTIONS,AND PHYSICAL THERAPY ORDERS. PATIENT GIVEN 50MG ULTRAM FOR PAIN RATED AT A 2/10. PATIENT DENIES NEEDING ADDITIONAL RESOURCES AT THIS TIME. RELINQUISHED CARE FOR PATIENT.
--- NOTE | 2017-05-31 09:24 | NUR ---
S/P SANDRA R knee. adductor Canal block. Pt was up walking around in room stated she was feeling good. knee was a bit sore but good. VSS and no anesthesia complication noted at this time
[2017-05-31] MEDS ORDERED: RIVA20TA PO (10:16)
[2017-05-31 11:52] VITALS: BP 100/40
--- NOTE | 2017-05-31 18:41 | DSH ---
DATE OF DISCHARGE: 05/31/2017 ADMITTING DIAGNOSIS: Arthrofibrosis of the right knee. OTHER DIAGNOSES: Include obesity, history of pulmonary embolus, sleep apnea and hypertension. DISCHARGE DIAGNOSIS: Arthrofibrosis of the right knee. OPERATIVE PROCEDURE DATE: 05/30/2017. PROCEDURE PERFORMED: Manipulation under anesthesia of the right knee. CONSULTATIONS: Will be Dr. Samano. COMPLICATIONS: None. SUMMARY OF ADMISSION: The patient is a 71-year-old female who underwent revision right knee arthroplasty in 01/2017 for a knee infection. The patient has been unable to regain her range of motion postoperatively despite formal physical therapy. She had -15 degrees of full extension and 75 degrees of flexion actively and passively. The patient was taken to the operating room on 05/30/2017. We were able to get the patient out into full extension with 110 degrees of passive flexion. The patient was admitted overnight for aggressive physical therapy. She has been on a CPM unit for the last 12-14 hours. She is tolerating 0-120 degrees on the CPM. She has been ambulatory with her walker, weightbearing as tolerated. The patient will be discharged today on 03/30/2017. She will have a home CPM unit for the next 2-3 weeks that she will use for 6-8 hours a day. The patient will get aggressive physical therapy, Monday through Monday for the next 3 weeks. I will give her a prescription for tramadol as well as Valium. She is on Xarelto 15 mg twice a day for her pulmonary embolus. I will see her back in the office in 3 weeks. Porfirio Samuel MD DR: LYDIA/capo JOB# [id number]
--- NOTE | 2017-06-01 08:22 | CNH ---
DATE OF CONSULTATION: 05/30/2017 CHIEF COMPLAINT: Preop cardiovascular evaluation before undergoing a right knee manipulation. HISTORY OF PRESENT ILLNESS: The patient is a 71-year-old white female who has underlying history of mild to moderate hypertension, has 2 knee operations and has had pulmonary emboli, has been on Xarelto 15 mg once a day and it was temporarily discontinued due to epistaxis, which has been taken care of and had a pyogenic granuloma, which has been cauterized and at the present time, she has had a lot of stiffness in the right knee and will undergo manipulation under general anesthesia. Xarelto has been held for 4 days and she is overall doing well, has lost about 20-25 pounds and cardiovascular status seems to be stable. She is not hypoxic and her exercise tolerance has slightly improved. No exercise-induced hypoxemia on SO2 monitoring noted. Hence, she will undergo the procedure today. ALLERGIES: NONE KNOWN. MEDICATIONS: She has been on vitamin D3 2000 units daily and B12 1000 mcg daily, iron with vitamins 1 capsule daily, Levothroid 50 mcg once a day, Crestor 10 mg once a day, tizanidine 2 mg 3 times a day on p.r.n. basis for muscle spasm and recently ramipril increased to 10 mg twice a day, she is not taking gabapentin and she was on Xarelto 15 mg once a day. PAST MEDICAL HISTORY: History of hypertension, hypertensive heart disease, progressive dyspnea, pulmonary emboli, 2 knee operations, see my office notes for the details of all her past history. SOCIAL HISTORY: She is a nonsmoker at this time. No history of any ethanol abuse. FAMILY HISTORY: Essentially unremarkable. No known history of significant cardiac disease. PHYSICAL EXAMINATION: GENERAL: She was alert, awake, oriented. VITAL SIGNS: 97 kilograms and BMI 34.6 and 167 cm and her blood pressure was 120/80 with a pulse of 67, respiration 18. HEENT: Unremarkable. NECK: No JVD, no carotid bruits. CHEST: Thick chest wall. LUNGS: Poor air entry at the bases. HEART: Sounds S1, S2 normal. ABDOMEN: Protuberant. No organomegaly. Bowel sounds present. EXTREMITIES: Swelling of the right knee. Distal pulses were felt. NEUROLOGIC: No lateralizing motor deficit is documented. LABORATORY DATA: Acceptable. Protein was 8.6. May just get a protein electrophoresis. IMPRESSION: Post-pulmonary emboli, post 2 right knee operations, degenerative joint disease for orthopedic manipulation under general anesthesia and hypertension. PLAN: At this time, the patient will be admitted post-surgery. We will ask Dr. Samuel, we will resume Xarelto within 24 hours. Continue ramipril 5 mg twice a day at the present time and we will take care of her medical status postoperatively. Thank you very much for this consultation. Laxmichand MD [place] DR: BRADLEY/capo JOB# [id number]
[2017-06-01] MEDS ORDERED: XARELTO PO SCH (09:00)
--- NOTE | 2017-06-02 05:52 | PNH ---
DATE: 05/31/2017 SUBJECTIVE: The patient is a 71-year-old female with pulmonary emboli and had swelling of the right knee and underwent orthopedic manipulation under general anesthesia with improvement in the range of motion and her medications were held, especially Xarelto. She is doing well. OBJECTIVE: VITAL SIGNS: Stable. Saturation above 90% on room air. LUNGS: Clear. HEART: Sounds normal. PLAN: She will be sent home on Xarelto 20 mg once a day, vitamin D 5000 units daily, B12 one tablet daily, iron tablets and Levothroid 50 mcg once a day, ramipril 10 mg twice a day, Crestor 10 mg once a day, tizanidine 2 mg 3 times a day on p.r.n. basis, gabapentin has been stopped and she will check back with me in about 2-3 weeks. Willardhand MD [place] DR: BRADLEY/capo JOB# [id number]
[2017-06-02 10:21] LABS: A/G RATIO 1.1 (0.7-1.7); ALPHA-2-GLOBULIN 0.6 g/dL (0.4-1.0); BETA GLOBULIN 0.8 g/dL (0.7-1.3); GAMMA GLOBULIN 1.3 g/dL (0.4-1.8); M-SPIKE Not Observed g/dL (Not Observed); PROTEIN, TOTAL 6.2 g/dL (6.0-8.5)
== END 2017-05-31 14:19 | disposition home or self-care (01) | DRG 554 ==
LOC: SURG 03:46 → MS 09:59
PROVIDERS: ADMIT Orthopaedic Surgery; ATTEND Orthopaedic Surgery
PROC: 0SSCXZZ Reposition Right Knee Joint, External Approach (ICD-10-PCS; principal; 2017-05-30 09:05)
DX: M24.661 Ankylosis, right knee (principal); Z99.81 Dependence on supplemental oxygen; E66.9 Obesity, unspecified; G43.909 Migraine, unspecified, not intractable, without status migrainosus; Z96.651 Presence of right artificial knee joint; M19.90 Unspecified osteoarthritis, unspecified site; I10 Essential (primary) hypertension; G47.33 Obstructive sleep apnea (adult) (pediatric); Z86.711 Personal history of pulmonary embolism; Z90.710 Acquired absence of both cervix and uterus; Z79.01 Long term (current) use of anticoagulants; Z79.899 Other long term (current) drug therapy; Z90.49 Acquired absence of other specified parts of digestive tract; Z82.3 Family history of stroke; Z83.3 Family history of diabetes mellitus; Z82.49 Family history of ischemic heart disease and other diseases of the circulatory system; Z82.5 Family history of asthma and other chronic lower respiratory diseases; Z68.34 Body mass index [BMI] 34.0-34.9, adult
CPT/HCPCS: 36415; 71046; 80053; 84165; 85025; 85610; 85730; 97161; J0330; J1100; J1170; J1885; J2001; J2405; J2795; J3010; J3490; J7030; J7120; 97760-GP; G8978-CI; G8979-CI

== ENCOUNTER → 2017-07-10 | Outpatient (CLI) | payer OTHER, MEDICARE ==
[~2017-07-10] MED LIST changes: +RIVA20TA PO
--- NOTE | 2017-07-10 17:34 | DIREP ---
PROCEDURE:US DUPLEX EXTREM VEINS UNILATER/LIMITED-RT COMPARISON:[facility], , DUPLEX EXTREM VEINS UNILATER/LIMITED-RT, 09/02/2016, 08:17 AM. INDICATIONS:DVT, RT LEG SWELLING TECHNIQUE:The right lower extremity was evaluated utilizing pruett scale images with segmental compression, color Doppler, and spectral Doppler with respiratory variation and augmentation. FINDINGS: Common femoral vein:Patent Superficial femoral vein:Patent Popliteal vein:Patent Anterior tibial vein:Patent Posterior tibial vein:Patent Greater saphenous vein:Patent Waveforms are within normal limits. CONCLUSION: No evidence of DVT within the right lower extremity. Dictated by: Pb Hurtado MD on 07/10/2017 at 05:31 PM
== END | disposition home or self-care (01) ==
LOC: RAD 16:34
PROVIDERS: ATTEND Specialist
DX: I82.491 Acute embolism and thrombosis of other specified deep vein of right lower extremity (principal); M79.89 Other specified soft tissue disorders
CPT/HCPCS: 36415; 85379; 93971

== ENCOUNTER → 2017-07-10 | Outpatient (CLI) | payer OTHER, MEDICARE ==
[2017-07-10 15:57] LABS: ABG PCO2 33.5 mmHg (35.0-45.0); ABG PH 7.451 (7.350-7.450); BE(B) -0.6 mmol/L (-2.0-2.0); HCO3act 22.8 mmol/L (22.0-26.0)
== END | disposition home or self-care (01) ==
LOC: RT 15:46
PROVIDERS: ATTEND Specialist
DX: E83.51 Hypocalcemia (principal); I26.99 Other pulmonary embolism without acute cor pulmonale
CPT/HCPCS: 36415; 36600; 82803

== ENCOUNTER → 2017-07-11 | Outpatient (CLI) | payer OTHER, MEDICARE ==
[2017-07-11 10:03] LABS: HEMOGLOBIN 11.5 g/dL (12.0-15.0); MEAN CELL HGB 28.6 pg (26-34); MEAN CELL HGB CONCENTRATION 32.3 g/dL (33-37); MEAN CORP VOLUME 88.6 fL (78-100); MEAN PLATELET VOLUME 9.1 fL (7.8-11.0); RED CELL DISTRIBUTION WIDTH 15.6 % (11.5-14.5); WHITE BLOOD CELL 6.4 10^3/uL (4.5-11.0)
[2017-07-11 10:17] LABS: CALCIUM 9.6 mg/dL (8.4-10.5); CARBON DIOXIDE 22.4 mmol/L (20.0-32)
== END | disposition home or self-care (01) ==
LOC: LAB 09:43
PROVIDERS: ATTEND Specialist
DX: I11.0 Hypertensive heart disease with heart failure (principal); I50.9 Heart failure, unspecified; I50.22 Chronic systolic (congestive) heart failure; I26.99 Other pulmonary embolism without acute cor pulmonale; E78.00 Pure hypercholesterolemia, unspecified
CPT/HCPCS: 36415; 80053; 85027; 85651; 86141

== ENCOUNTER → 2017-08-24 | Outpatient (CLI) | payer OTHER, MEDICARE ==
[~2017-08-24] MED LIST changes: +NAPR-636 PO; -NAPR500T4 PO
[2017-08-24 14:37] LABS: BASOPHIL % 0.5 % (0.0-0.2); EOSINOPHIL # 0.1 10^3/uL (0.0-0.2); EOSINOPHIL % 1.6 % (0.0-5.0); HEMOGLOBIN 12.6 g/dL (12.0-15.0); LYMPHOCYTES # 2.7 10^3/uL (1.0-4.8); LYMPHOCYTES % 35.7 % (24.0-44.0); MEAN CELL HGB CONCENTRATION 32.7 g/dL (33-37); MEAN CORP VOLUME 88.5 fL (78-100); MEAN PLATELET VOLUME 9.4 fL (7.8-11.0); MONOCYTES # 0.6 10^3/uL (0.3-0.8); MONOCYTES % 7.2 % (5.0-12.0); NEUTROPHIL # 4.2 10^3/uL (1.8-7.7); NEUTROPHILS % 54.9 % (41.0-85.0); RED CELL DISTRIBUTION WIDTH 14.3 % (11.5-14.5); WHITE BLOOD CELL 7.7 10^3/uL (4.5-11.0)
== END | disposition home or self-care (01) ==
LOC: LAB 14:25
PROVIDERS: ATTEND Orthopaedic Surgery
DX: M25.561 Pain in right knee (principal); Z96.651 Presence of right artificial knee joint
CPT/HCPCS: 36415; 85025; 85651; 86140

== ENCOUNTER → 2017-08-31 | Outpatient (CLI) | payer OTHER, MEDICARE ==
--- NOTE | 2017-09-01 07:26 | DIREP ---
PROCEDURE:NM BONE SCAN 3 PHASE WHOLE BODY COMPARISON:None. INDICATIONS:T84.84XA PAIN DUE TO RIGHT TOTAL KNEE REPLACEMENT TECHNIQUE:After obtaining the patient's consent, Technetium 99m MDP was injected intravenously. Dynamic flow, immediate blood pool, and delayed static images were obtained. Whole body planar images and coned-down images of bilateral knee joints were obtained approximately 3 hours later. PHARMACEUTICAL:Technetium 99m MDP, 31.3 mCi FINDINGS: Increased activity surrounding the femoral and tibial component of the right knee arthroplasty on all 3 phases compatible with loosening versus infection. Activity is slightly greater in the femoral portion of the arthroplasty compared to the tibial portion. There are otherwise incidentally noted multilevel degenerative changes seen about the bilateral shoulders, multiple levels of the spine, and the bilateral ankles and mid feet. Focal area of increased activity overlying the right L4 facet, felt to represent degenerative joint disease. Correlation with additional imaging modalities is recommended however. CONCLUSION:Evidence of hardware loosening versus infection about the right knee joint Dictated by: Corwin Maya DO on 09/01/2017 at 07:22 AM
== END | disposition home or self-care (01) ==
LOC: NM 08:28
PROVIDERS: ATTEND Orthopaedic Surgery
DX: T84.84XA Pain due to internal orthopedic prosthetic devices, implants and grafts, initial encounter (principal); X58.XXXA Exposure to other specified factors, initial encounter; Y93.89 Activity, other specified; Y92.89 Other specified places as the place of occurrence of the external cause; Y99.8 Other external cause status
CPT/HCPCS: 78315; A9503

== ENCOUNTER → 2017-09-14 | Outpatient (CLI) | payer OTHER, MEDICARE ==
--- NOTE | 2017-09-14 16:49 | DIREP ---
PROCEDURE:CT LOWER EXTREMITY-RT W&W/O COMPARISON:[facility], [place], AL BONE SCAN 3 PHASE WHOLE BODY, 08/31/2017, 09:01 AM. INDICATIONS:INFECTED RIGHT TOTAL KNEE X 1.5 YRS TECHNIQUE:After obtaining the patient's consent, multi-planar CT images of the right knee were created without and with non-ionic intravenous contrast. FINDINGS: BONES:Limited assessment for loosening given spray artifact at the bone-prosthesis interfaces. Thickened periosteum reaction noted about the distal femur which can be seen with osteomyelitis. JOINTS:Joint effusion with synovial thickening and enhancement suggested, detail limited by spray artifact. Prepatellar subcutaneous edema noted. SOFT TISSUES:Evidence of prior midline anterior knee incision. OTHER:Negative. CONCLUSION: 1. Periostitis involving distal anterior femur which can be seen with infection/osteomyelitis. Adjacent effusion which appears to enhance further supporting infection. Findings are congruent with bone scan. 2. No lucency seen at the prosthesis/bone interface; however, spray artifact limits detail. Dictated by: Steven Guevara M.D. On 09/14/2017 at 04:43 PM
--- NOTE | 2017-09-16 01:23 | DIREP ---
PROCEDURE:BONESPECT COMPARISON:[facility], CT, CT LOWER EXTREMITY-RT W&W/O, 09/14/2017, 08:54 AM. INDICATIONS:PAIN IN RT KNEE DUE TO TOTAL KNEE REPLACEMENT TECHNIQUE:Multi planar images were obtained after administration of 596 uCi indium 111 tagged white blood cells. 24 hour post-injection images provided. FINDINGS: Normal physiologic uptake of indium 111 present in the liver and spleen. Radiotracer uptake is noted in the region of the distal femur surrounding right knee prosthesis. Uptake also suggested on the tibial side of the right knee joint. CONCLUSION:Increased tagged white blood cell uptake seen about right knee prosthesis, more extensively in the femur than tibia. Periostitis seen in the distal femur by CT. Leading consideration is osteomyelitis. Sensitivity of examination would be increased with complimentary sulfur colloid marrow imaging. Dictated by: Steven Guevara M.D. on 09/16/2017 at 01:16 AM
== END | disposition home or self-care (01) ==
LOC: CT 08:10
PROVIDERS: ATTEND Orthopaedic Surgery
DX: M00.861 Arthritis due to other bacteria, right knee (principal); Z96.661 Presence of right artificial ankle joint
CPT/HCPCS: 73702; 78805; A9572; Q9965

== ENCOUNTER → 2017-09-26 | Outpatient (CLI) | payer OTHER, MEDICARE ==
[2017-09-26 14:43] LABS: BILIRUBIN,URINE NEGATIVE (NEGATIVE); UROBILINOGEN,URINE NORMAL (NEGATIVE)
--- NOTE | 2017-09-26 14:46 | DIREP ---
PROCEDURE:CHEST 2 VIEWS COMPARISON:[facility], CR, XRAY CHEST 2 VWS, 05/29/2017, 05:09 PM. INDICATIONS:PRE-OP INFECTED RIGHT KNEE FINDINGS: LUNGS/PLEURA:No significant pulmonary parenchymal abnormalities. No effusions. VASCULATURE:Normal. Unremarkable pulmonary vasculature. CARDIAC:Normal. No cardiac silhouette abnormality or cardiomegaly. MEDIASTINUM:Normal. No visible mass or adenopathy. BONES:Normal. No fracture or visible bony lesion. OTHER:Negative. CONCLUSION:No acute airspace disease Dictated by: Corwin Maya DO on 09/26/2017 at 02:44 PM
[2017-09-26 14:49] LABS: APPEARANCE,URINE CLEAR (CLEAR); UA COLOR STRAW (YELLOW)
[2017-09-27 07:36] LABS: HEP A AB, IgM Negative (Negative)
== END | disposition home or self-care (01) ==
LOC: RAD 14:08
PROVIDERS: ATTEND Orthopaedic Surgery
DX: Z01.818 Encounter for other preprocedural examination (principal); I11.0 Hypertensive heart disease with heart failure; I50.9 Heart failure, unspecified; G47.33 Obstructive sleep apnea (adult) (pediatric); M00.861 Arthritis due to other bacteria, right knee; Z79.899 Other long term (current) drug therapy
CPT/HCPCS: 36415; 71046; 80074; 81000; 85610; 85730; 86318; 87070; 87086

== ENCOUNTER → 2017-10-23 | Outpatient (CLI) | payer OTHER, MEDICARE ==
[2017-10-23 12:30] LABS: BASOPHIL # 0.1 10^3/uL (0.0-0.1); EOSINOPHIL # 0.4 10^3/uL (0.0-0.2); EOSINOPHIL % 5.3 % (0.0-5.0); HEMOGLOBIN 9.7 g/dL (12.0-15.0); LYMPHOCYTES # 1.8 10^3/uL (1.0-4.8); LYMPHOCYTES % 24.6 % (24.0-44.0); MEAN CELL HGB CONCENTRATION 32.4 g/dL (33-37); MEAN CORP VOLUME 89.5 fL (78-100); MEAN PLATELET VOLUME 9.3 fL (7.8-11.0); MONOCYTES # 0.6 10^3/uL (0.3-0.8); MONOCYTES % 8.6 % (5.0-12.0); NEUTROPHIL # 4.4 10^3/uL (1.8-7.7); NEUTROPHILS % 60.4 % (41.0-85.0); RED CELL DISTRIBUTION WIDTH 14.3 % (11.5-14.5); WHITE BLOOD CELL 7.2 10^3/uL (4.5-11.0)
[2017-10-23 12:56] LABS: CALCIUM 9.2 mg/dL (8.4-10.5); CARBON DIOXIDE 24.2 mmol/L (20.0-32)
== END | disposition home or self-care (01) ==
LOC: NPLAB 11:47
PROVIDERS: ATTEND Orthopaedic Surgery
DX: T84.53XA Infection and inflammatory reaction due to internal right knee prosthesis, initial encounter (principal); B95.8 Unspecified staphylococcus as the cause of diseases classified elsewhere
CPT/HCPCS: 36415; 80053; 82550; 85025

== ENCOUNTER → 2018-06-12 | Outpatient (CLI) | payer OTHER, MEDICARE ==
[~2018-06-12] MED LIST changes: -RAMI10CA PO; +RAMI10CA59 PO
--- NOTE | 2018-06-12 11:14 | DIREP ---
PROCEDURE: MRI JOINT LOWER EXTREMITY-LT W/O COMPARISON:None. INDICATIONS:S/P TKR Z96.651, MENISCUS FINDINGS: LIGAMENTS:There maybe some thinning or tendinosis of the ACL but overall it appears intact. The PCL is intact. There is blunting of the posterior horn of the medial meniscus adjacent to the attachment image 20 series 501, probably volume averaging/degenerative however a tiny posterior vertical tear near the attachment cannot be excluded. Other than some thinning degenerative changes menisci appear otherwise intact. LOOSE BODIES:None. TENDONS:Normal periarticular tendons. BONES:Jenq-af-aheheboe chondromalacia is seen. Subcortical fissuring or cyst is seen in the medial femoral head and posterior medial tibial plateau OTHER:Negative. CONCLUSION: Slight blunting of the posterior horn near the attachment of the medial meniscus, possibly volume averaging however tiny vertical tear cannot be excluded. Otherwise age-appropriate degenerative changes. Dictated by: Hayden Lynne MD on 06/12/2018 at 10:49 AM
== END | disposition home or self-care (01) ==
LOC: RAD 08:31
PROVIDERS: ATTEND Orthopaedic Surgery
DX: M94.262 Chondromalacia, left knee (principal); Z96.651 Presence of right artificial knee joint
CPT/HCPCS: 36415; 73721; 82565; 84520

== ENCOUNTER → 2019-04-01 | Outpatient (CLI) | payer MEDICARE, OTHER ==
[~2019-04-01] MED LIST changes: +CYAN-26 PO; -CYAN10005 PO; -CYAN500T PO; +CYAN500T50 PO; -ROSU10TA PO; +ROSU10TA2 PO; -TIZA2TAB PO; +TIZA2TAB2 PO
== END | disposition home or self-care (01) ==
LOC: LAB 08:06
PROVIDERS: ATTEND Specialist
DX: R73.9 Hyperglycemia, unspecified (principal)
CPT/HCPCS: 36415; 82947; 83036

== ENCOUNTER → 2019-11-12 | Outpatient (CLI) | payer MEDICARE, OTHER ==
[~2019-11-12] MED LIST changes: -TIZA2TAB2 PO; +TIZA2TAB4 PO
[2019-11-12 14:20] LABS: MEAN CORP HGB 29.5 pg (26-34); RED CELL DISTRIBUTION WIDTH 13.3 % (11.5-14.5)
[2019-11-12 14:47] LABS: ALANINE AMINOTRANSFERASE(ML) 15 U/L (12-78); ALKALINE PHOSPHATASE 63 U/L (50-136); ASPARTATE AMINO TRANSFERASE 14 U/L (0-35); CALCIUM 9.1 mg/dL (8.4-10.5); CARBON DIOXIDE 26.1 mmol/L (20.0-32); CHOLESTEROL 191 mg/dL (120-240); GLUCOSE 100 mg/dL (70-110); HDL CHOLESTEROL 43 mg/dL (32-96)
== END | disposition home or self-care (01) ==
LOC: LAB 13:57
PROVIDERS: ATTEND Specialist
DX: M79.10 Myalgia, unspecified site (principal); R05 Cough; R06.02 Shortness of breath; I11.0 Hypertensive heart disease with heart failure
CPT/HCPCS: 36415; 80053; 80061; 84145; 84443; 84484; 85027; 85379; 86140

== ENCOUNTER → 2019-11-14 | Outpatient (CLI) | payer MEDICARE, OTHER ==
--- NOTE | 2019-11-14 15:10 | DIREP ---
PROCEDURE:CTA - CHEST (NON CORONARY) COMPARISON:None. INDICATIONS:PULMONARY EMBOLI TECHNIQUE:After obtaining the patient's consent, CTA images were obtained without and with non-ionic intravenous contrast material. The pelvis and proximal lower extremities were also scanned after of delayed interval. Multi-planar MIP/3-D images were created to optimize visualization of vascular anatomy. FINDINGS: VASCULATURE:No emboli in the pulmonary arteries. THORACIC AORTA:Normal. LUNGS:Normal. MEDIASTINUM/GIL:Normal. CARDIAC:Normal. PLEURA:Normal. CHEST WALL:Normal. LIMITED ABDOMEN:Cholecystectomy BONES:Normal. OTHER:Pelvis and proximal lower extremity: No DVT. Knee replacement right. CONCLUSION:No pulmonary parenchymal lesions. No PE. No DVT. Normal thoracic aorta. Dictated by: Brittani Christina MD on 11/14/2019 at 02:49 PM
== END | disposition home or self-care (01) ==
LOC: RAD 13:51
PROVIDERS: ATTEND Specialist
DX: R05 Cough (principal); I26.99 Other pulmonary embolism without acute cor pulmonale
CPT/HCPCS: 71275; 73701; Q9965

== ENCOUNTER 2020-01-30 12:06 | Emergency (ER) | payer MEDICARE, OTHER ==
[~2020-01-30] VITALS: Ht 167.6 cm; Wt 104.3 kg
[2020-01-30 12:06] VITALS: BP 176/78
[2020-01-30] MEDS ORDERED: DUO 0.5-3(2.5) MG/3 ML IH STA ×2 (12:42→12:54)
[2020-01-30] MEDS ORDERED: PREDNISONE PO STA (12:42)
[2020-01-30] MEDS ORDERED: SOLU-MEDROL ONE (12:52)
[2020-01-30] MEDS ORDERED: SOLU-MEDROL IV STA (12:54)
[2020-01-30 12:59] LABS: BASOPHIL % 0.2 % (0.0-0.2); LYMPHOCYTES # 1.49 10^3/uL1 (1.0-4.8); MEAN CORP HGB 30.6 pg (26-34); MONOCYTES # 0.4 10^3/uL (0.3-0.8); MONOCYTES % 7.5 % (5.0-12.0); NEUTROPHIL # 2.9 10^3/uL (1.8-7.7); NEUTROPHILS % 61.3 % (41.0-85.0); PLATELET COUNT 207 10^3/uL (150-400); RED CELL DISTRIBUTION WIDTH 13.4 % (11.5-14.5)
[2020-01-30] MEDS ORDERED: COMBIVENT RESPIMAT 20-100 MCG IH ONE (13:00)
[2020-01-30 13:05] VITALS: BP 106/63
--- NOTE | 2020-01-30 13:08 | DIREP ---
PROCEDURE:CHEST 1 VIEW COMPARISON:[facility], CT, CTA CHEST, 11/14/2019, 02:09 PM. [facility], CR, XRAY CHEST 2 VWS, 09/26/2017, 02:06 PM. INDICATIONS:SHORTNESS OF BREATH FINDINGS: LUNGS/PLEURA:No significant pulmonary parenchymal abnormalities or pleural effusion. CARDIAC:Normal cardiac silhouette and normal pulmonary vascularity. Mildly tortuous aorta. MEDIASTINUM:Normal. BONES:Degenerative changes. OTHER:No additional findings. CONCLUSION:No acute cardiopulmonary process or significant change. Dictated by: Malena Becerra MD on 01/30/2020 at 01:06 PM
--- NOTE | 2020-01-30 13:08 | PCM.EKG ---
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
[2020-01-30] MEDS ORDERED: NORCO 10MG PO STA (13:23)
[2020-01-30 13:24] LABS: ALANINE AMINOTRANSFERASE(ML) 11 U/L (12-78); ALKALINE PHOSPHATASE 59 U/L (50-136); ASPARTATE AMINO TRANSFERASE 17 U/L (0-35); CALCIUM 8.9 mg/dL (8.4-10.5); CARBON DIOXIDE 23.4 mmol/L (20.0-32); GLUCOSE 105 mg/dL (70-110)
[2020-01-30] MEDS ORDERED: ZOFRAN ODT SL STA (13:28)
--- NOTE | 2020-01-30 13:28 | ER.PDOC ---
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 OUT OF US: No Time seen by MD: 13:00 Source: patient Exam Limitations: no limitations History of Present Illness Timing/Duration: 1 week Modifying Factors: improves with rest Associated Symptoms: cough, fever/chills, headaches, loss of appetite, malaise, nausea/vomiting, shortness of breath Allergies: Coded Allergies: No Known Allergies (Unverified , 08/04/16) Home Meds Active Scripts Rivaroxaban (XARELTO) 20 Mg Tablet, 20 MG PO DAILY24 for 30 Days Prov:JOAQUIN ORELLANA MD 05/31/17 Levothyroxine Sodium (SYNTHROID) 50 Mcg Tablet, 75 MCG PO ACB for 30 Days, TABLET Prov:JOAQUIN ORELLANA MD 03/24/17 Reported Medications Ramipril (RAMIPRIL) 10 Mg Capsule, 1 CAP PO BID, #30 CAP 5 Refills 05/29/17 Rosuvastatin 10MG (CRESTOR 10MG) 10 Mg Tablet, 1 TAB PO HS, #30 TAB 5 Refills 05/29/17 Iron Fum & Ps Cmp/Fa/Vit C/B3 (INTEGRA F CAPSULE) 1 Each Capsule, 1 CAP PO DAILY, #30 CAP 2 Refills 05/29/17 Cyanocobalamin (Vitamin B-12) (VITAMIN B-12) 1,000 Mcg Tablet, 1 TAB PO DAILY, #30 TAB 2 Refills 10/28/16 Cholecalciferol (Vitamin D3) (VITAMIN D-3) 2,000 Unit Capsule, 5000 UNIT PO DAILY, CAPSULE 08/04/16 Tizanidine Hcl (TIZANIDINE HCL) 2 Mg Tablet, 2 MG PO TID PRN for MUSCLE SPASM, TABLET 08/04/16 Past Medical History Medical History: hypertension, pulmonary embolism, thyroid disease Surgical History: back, knee LMP (females 10-50): postmenopause Social History Alcohol Use: none Drug Use: none Reviewed Nursing Reviewed: Vital Signs, Abn. 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 (01/30/20 12:42) D-Dimer (01/30/20 12:42) Xr Chest 1v (01/30/20 12:42) Ekg-Routine (01/30/20 12:42) Prednisone (Prednisone) (01/30/20 12:42) Methylprednisolone Sod Succ (Solu-Medrol (01/30/20 12:52) Methylprednisolone Sod Succ (Solu-Medrol (01/30/20 12:54) Ipratropium/Albuterol Sulfate (Duo 0.5-3 (01/30/20 12:54) Hydrocodone/Acetaminophen ([place] 10mg) (01/30/20 13:23) Novel Coronavirus 2019(Dshs) (01/30/20 13:28) Ondansetron (Zofran Odt) (01/30/20 13:28) Lipase (01/30/20 13:30) Amylase (01/30/20 13:30) Urinalysis (01/30/20 13:30) Ondansetron Hcl/Pf (Zofran) (01/30/20 13:37) Ipratropium/Albuterol Sulfate (Combivent (01/30/20 13:00) Vital Signs Date Time Temp Pulse Resp B/P (MAP) Pulse Ox O2 Delivery O2 Flow Rate FiO2 01/30/20 14:05 60 111/58 (75) 91 01/30/20 13:05 63 106/63 (77) 91 Room Air 01/30/20 12:06 98.6 64 18 96 01/30/20 12:06 98.6 64 16 01/30/20 12:06 98.6 64 16 176/78 (110) 96 Room Air Administered Medications Medications (Trade) Dose Ordered Sig/Gab Route PRN Reason Start Time Stop Time Status Last Admin Dose Admin Acetaminophen/ Hydrocodone Bitart ([place] 10mg) 1 each STAT STAT PO 01/30/20 13:23 01/30/20 13:25 DC 01/30/20 13:37 1 EACH Methylprednisolone Sodium Succinate (Solu-Medrol) 125 mg STAT STAT IV 01/30/20 12:54 01/30/20 13:07 DC 01/30/20 13:04 125 MG Ondansetron HCl (Zofran) 4 mg STAT STAT IV 01/30/20 13:37 01/30/20 13:38 DC 01/30/20 13:38 4 MG Laboratory Tests Test 01/30/20 12:53 01/30/20 13:07 01/30/20 14:45 White Blood Count 4.8 10^3/uL (4.5-11.0) Red Blood Count 4.02 10^6/uL (4.00-5.20) Hemoglobin 12.3 g/dL (12.0-15.0) Hematocrit 36.4 % (36.0-46.0) Mean Corpuscular Volume 90.5 fL (78-100) Mean Corpuscular Hemoglobin 30.6 pg (26-34) Mean Corpuscular Hemoglobin Concent 33.8 g/dL (33-36.5) Red Cell Distribution Width 13.4 % (11.5-14.5) Platelet Count 207 10^3/uL (150-400) Mean Platelet Volume 9.2 fL (7.8-11.0) Neutrophils (%) (Auto) 61.3 % (41.0-85.0) Lymphocytes (%) (Auto) 31.0 % (24.0-44.0) Monocytes (%) (Auto) 7.5 % (5.0-12.0) Neutrophils # (Auto) 2.9 10^3/uL (1.8-7.7) Lymphocytes # (Auto) 1.49 10^3/uL1 (1.0-4.8) Monocytes # (Auto) 0.4 10^3/uL (0.3-0.8) Absolute Immature Granulocyte (auto 0 10^3 u/L (0-2) Absolute Eosinophils (auto) 0.0 10^3/uL (0.0-0.2) Immature Granulocytes % 0.00 % (0.00-0.50) Eosinophils % 0.0 % (0.0-5.0) Basophils % 0.2 % (0.0-0.2) Basophils # 0.0 10^3/uL (0.0-0.1) Prothrombin Time 13.1 SEC (9.3-11.3) H Prothrombin Time INR (Non-Therap) 1.3 Activated Partial Thromboplast Time 35.6 SEC (24.67-30.72) D-Dimer 0.42 mg/L (0.19-0.49) Sodium Level 138 mmol/L (132-145) Potassium Level 3.6 mmol/L (3.6-5.2) Chloride Level 103.0 mmol/L (96-109) Carbon Dioxide Level 23.4 mmol/L (20.0-32) Anion Gap 15.2 Blood Urea Nitrogen 14 mg/dL (7-18) Creatinine 1.15 mg/dL (0.59-1.40) Estimated GFR () 55.8 (>/=60) Est GFR (CKD-EPI)(Non-Afr French) 46.1 (>/=60) BUN/Creatinine Ratio 12.0 Glucose Level 105 mg/dL (70-110) Calcium Level 8.9 mg/dL (8.4-10.5) Total Bilirubin 0.4 mg/dL (0.2-1.0) Aspartate Amino Transferase (AST) 17 U/L (0-35) Alanine Aminotransferase (ALT) 11 U/L (12-78) L Alkaline Phosphatase 59 U/L (50-136) Total Creatine Kinase 68 U/L (26-192) Creatine Kinase MB < 0.5 ng/mL (0.5-3.6) L Troponin I < 0.02 ng/mL (0.00-0.05) Pro-B-Type Natriuretic Peptide 339 pg/mL (0-125) H Total Protein 8.1 g/dL (6.4-8.2) Albumin 3.8 g/dL (3.4-5.0) Globulin 4.3 Albumin/Globulin Ratio 0.883 Amylase Level 49 U/L (25-115) Lipase 157 U/L (114-286) Urine Collection Type VOID Urine Color YELLOW (YELLOW) Urine Appearance CLEAR (CLEAR) Urine Bilirubin NEGATIVE MG/DL (NEGATIVE) Urine Ketones NEGATIVE (NEGATIVE) Urine Specific [place] 1.020 (1.005-1.035) Urine pH 6.5 (5.0-6.0) Urine Protein NEGATIVE (NEGATIVE) Urine Urobilinogen NORMAL (NEGATIVE) Urine Nitrate NEGATIVE (NEGATIVE) Urine Leukocyte Esterase NEGATIVE (NEGATIVE) Urine Blood TRACE (NEGATIVE) Urine RBC 2-5 RBC/HPF (NONE SEEN) Urine WBC 0-2 WBC/HPF (0-2) Urine Squamous Epithelial Cells FEW #/HPF (FEW) Urine Bacteria NONE SEEN (NONE SEEN) Urine Glucose NORMAL (NEGATIVE) EKG/XRAY/CT/US EKG: NSR, nonspecific ST T wave chg ER DEPART Departure Time of Disposition: 13:33 Disposition: 01 HOME, SELF-CARE Impression: Primary Impression: Viral syndrome Condition: Improved Referrals: JOAQUIN ORELLANA MD (PCP) PRIMARY CARE PROVIDER Duration or Time Spent with Pa: 21m NIRMALA ROSENBERG MD Jan 30, 2020 13:28
[2020-01-30] MEDS ORDERED: ZOFRAN IV STA (13:37)
[2020-01-30 14:05] VITALS: BP 111/58
[2020-01-30 14:59] LABS: APPEARANCE,URINE CLEAR (CLEAR); BILIRUBIN,URINE NEGATIVE (NEGATIVE); UA COLOR YELLOW (YELLOW); UROBILINOGEN,URINE NORMAL (NEGATIVE)
[2020-01-30 15:30] VITALS: BP 131/72
--- NOTE | 2020-01-30 15:30 | NUR ---
DC 20G IV REMOVED FROM LEFT HAND, CATHETER INTACT.
== END 2020-01-30 15:30 | disposition home or self-care (01) ==
LOC: ER 12:06
DX: U07.1 COVID-19 (principal); B34.9 Viral infection, unspecified; R11.2 Nausea with vomiting, unspecified; I10 Essential (primary) hypertension; Z79.01 Long term (current) use of anticoagulants; Z79.899 Other long term (current) drug therapy; Z86.711 Personal history of pulmonary embolism
CPT/HCPCS: 36415; 71045; 80053; 81000; 82150; 82550; 82553; 83690; 83880; 84484; 85025; 85379; 85610; 85730; 87635; 93005; 96374; 96375; 99285; J2930

== ENCOUNTER → 2021-09-20 | Outpatient (CLI) | payer MEDICARE, OTHER ==
[~2021-09-20] MED LIST changes: -CYAN500T50 PO; +CYAN500T6 PO; -LISI-414 PO; +LISI5TAB18 PO; -TIZA2TAB4 PO; +[UNRECOGNIZED DRUG - CODE] PO
[2021-09-20 14:31] LABS: RED CELL DISTRIBUTION WIDTH 13.5 % (11.5-14.5)
[2021-09-20 14:59] LABS: CARBON DIOXIDE 28.2 mmol/L (20.0-32)
== END | disposition home or self-care (01) ==
LOC: LAB 14:09
PROVIDERS: ATTEND Specialist
DX: R07.9 Chest pain, unspecified (principal); R06.00 Dyspnea, unspecified; R94.31 Abnormal electrocardiogram [ECG] [EKG]
CPT/HCPCS: 36415; 80053; 80061; 83880; 84484; 85027; 85379; 86140

== ENCOUNTER → 2023-12-26 | Outpatient (CLI) | payer MEDICARE, OTHER ==
[2017-05-30 11:10] VITALS: BP_SYST 146; TEMP 98
[~2023-12-26] MED LIST changes: +RAMI10CA PO; -RAMI10CA59 PO
== END | disposition home or self-care (01) ==
LOC: RAD 10:27
PROVIDERS: ATTEND Specialist
DX: I07.1 Rheumatic tricuspid insufficiency (principal); I10 Essential (primary) hypertension; E66.9 Obesity, unspecified; R06.02 Shortness of breath; E03.9 Hypothyroidism, unspecified; G25.2 Other specified forms of tremor; Z86.711 Personal history of pulmonary embolism
CPT/HCPCS: 93306